=== PATIENT | female | born 1965 | race Caucasian/White ===

== ENCOUNTER 2022-05-15 17:02 | Outpatient (CLI) | payer SELFPAY | END 2022-05-15 17:03 | disposition home or self-care (01) | LOC: AMB 06-05 10:44 | PROVIDERS: Visit Provider Family Medicine | DX: R45.851 Suicidal ideations (principal); F10.129 Alcohol abuse with intoxication, unspecified | CPT/HCPCS: A0425; A0429 ==

== ENCOUNTER 2022-05-15 17:29 | Emergency (ER) | payer SELFPAY ==
[2022-05-15 17:53] VITALS: BP 123/68; PULSE 98; RESP 18; TEMP 36.9; O2SAT 98; BMI 28.2
[2022-05-15 18:09] VITALS: O2SAT 89; O2SAT 96
--- NOTE | 2022-05-15 18:32 | ED_ITS ---
HPI - General Adult General Chief complaint: Psychiatric Problem/Disorder Stated complaint: Mental Health Time Seen by Provider: 05/15/22 17:46 Source: patient Mode of arrival: ambulatory Limitations: no limitations History of Present Illness HPI narrative: 57-year-old female coming in today after calling 911 and telling them that she is suicidal. 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 She states that she drinks over 1 L of hard liquor per day. States that or any did help. Did drink today. Has a history of anxiety depression is not being treated. She does not see a doctor or therapist. States she has been drinking for over a decade or ?maybe over 20 years?. Patient is , states that she ?tries her ?, unclear if that is a supportive relationship or not. Patient works as a traveling nurse. Related Data Home Medications Medication Instructions Recorded Confirmed No Known Home Medications 05/15/22 05/15/22 Allergies Allergy/AdvReac Type Severity Reaction Status Date / Time No Known Drug Allergies Allergy Verified 05/15/22 17:58 Review of Systems Status of ROS: Reports: 10 or more systems reviewed and unremarkable except as noted in History and below [facility] Medical History (Updated 05/16/22 @ 00:04 by Janneth Blake MD) Alcohol abuse Anxiety Depression Social History Smoking Status: Smoker, status unknown Do you use any of these nicotine containing products: None How often do you have a drink containing alcohol: 4 or more times a week How many standard drinks containing alcohol do you have on a typical day: 5 or 6 How often do you have six or more drinks on one occasion: Daily or almost daily AUDIT-C Alcohol total score: 10 Non-prescribed substance use: denies use Exam Narrative: Exam Narrative: Well-nourished well-developed patient, sad and tearful. Alert and oriented x3. Answers questions appropriately but Is obviously intoxicated. HEENT: Normocephalic atraumatic. Pupils are equally round reactive to light. Extraocular muscles are intact. Conjunctivae are moist without any icterus noted. Moist mucous membranes. Posterior pharynx is normal. Neck is soft without any lymphadenopathy or thyromegaly. No masses are appreciated. Cardiovascular: Heart is regular rate and rhythm S1 and S2 are present without any murmurs. Lungs: Clear to auscultation bilaterally no wheezes rhonchi or rales are appreciated. Patient takes deep breaths without any discomfort. Abdomen: Soft and nontender nondistended with normal bowel sounds. No guarding or rebound. No masses or organomegaly appreciated. Extremities: Bilateral lower extremities are without edema. Normal DP and PT pulses. Skin: Well perfused without any obvious rashes. Const: Vital Signs, click to edit/add: Vital Signs - 24 hr 05/15/22 17:53 05/15/22 18:09 05/15/22 18:09 Temperature 98.4 F Pulse Rate [Pulse Oximeter] 98 Respiratory Rate 18 Blood Pressure [Le ft Upper Arm] 123/68 Pulse Oximetry 98 89 96 Oxygen Delivery Me thod Nasal Cannula Oxygen Flow Rate 2 Course Course Hospital Course: Labs were drawn, blood alcohol was quite elevated at 0.37. Started become more agitated so she received 0.5 mg of IV Ativan. It was only after the van that she allowed IV fluids to begin. She slept for several hours. We were unable to do the DEC assessment given her intoxication. We discussed that because of her thoughts and plans of suicide we could not discharge her until she had sobered up and was able to do a DEC assessment. It became more agitated after waking up and she then received 1 mg of IM Ativan as she ripped out her IV. I was able to call her who then came to the ER to visit her. This did seem to calm her down. He understood the plan to keep for until she was more sober and able to be properly assessed. Care will be transferred to oncoming MD. Vital Signs Vital signs: Initial Vital Signs Temperature 98.4 F 05/15/22 17:53 Temperature Source Temporal Artery Scan 05/15/22 17:53 Pulse Rate 98 05/15/22 17:53 Respiratory Rate 18 05/15/22 17:53 Blood Pressure 123/68 05/15/22 17:53 Blood Pressure Mean 86 05/15/22 17:53 Pulse Oximetry 98 05/15/22 17:53 Vital Signs Temperature 98.4 F 05/15/22 17:53 Pulse Rate 98 05/15/22 17:53 Respiratory Rate 18 05/15/22 17:53 Blood Pressure 123/68 05/15/22 17:53 Pulse Oximetry 98 05/15/22 17:53 Temperature 98.4 F 05/15/22 17:53 Pulse Rate 98 05/15/22 17:53 Respiratory Rate 18 05/15/22 17:53 Blood Pressure 123/68 05/15/22 17:53 Pulse Oximetry 96 05/15/22 18:09 Oxygen Delivery Method 05/15/22 18:09 Oxygen Flow Rate 2 05/15/22 18:09 Medical Decision Making Lab Data Labs: Lab Results 05/15/22 05/15/22 05/15/22 Range/Units 16:36 16:36 18:09 WBC 7.79 (4.50-11.00) K/uL RBC 3.51 L (4.00-5.20) m/uL Hgb 12.2 (12.0-16.0) gm/dL Hct 36.3 (33.0-51.0) % MCV 103 H (80-100) fL MCH 35 H (26-34) pg MCHC 34 (32-36) gm/dL RDW Coeff of Maria Ines 15.1 (11.5-15.5) % Plt Count 154 (140-440) K/uL Neut % (Auto) 55.4 (42.0-72.0) % Lymph % (Auto) 34.4 (20-44) % [place] % (Auto) 7.2 (0.0-11.0) % Eos % (Auto) 1.8 (0.0-7.0) % Baso % (Auto) 0.9 (0.0-3.0) % Neut # (Auto) 4.32 (1.7-7.0) K/uL Lymph # (Auto) 2.68 (0.90-2.90) K/uL [place] # (Auto) 0.60 (0.00-0.90) K/UL Eos # (Auto) 0.14 (0.00-0.50) K/uL Baso # (Auto) 0.07 (0.00-0.30) K/uL Abs Immat Gran (auto) 0.02 (0.00-0.30) K/uL Imm/Tot Granulo (auto) Not Reportable Sodium 148 (135-149) mmol/L Potassium 4.1 (3.6-5.1) mmol/L Chloride 108 (96-114) mmol/L Carbon Dioxide 25 (20-32) mmol/L BUN 8 (7-30) mg/dL Creatinine 0.5 (0.5-1.5) mg/dL Estimated Creat Clear 120.72 Estimated GFR 109 ml/min Glucose 93 (60-115) mg/dL Calcium 8.9 (8.4-10.6) mg/dL Magnesium 1.3 L (1.5-2.6) mg/dL Total Bilirubin 3.1 H (0.1-1.5) mg/dL Direct Bilirubin 0.9 H (0.0-0.5) mg/dL AST 116 H (12-35) U/L ALT 33 (4-35) U/L Alkaline Phosphatase 98 (40-150) U/L Total Protein 9.3 H (6.0-8.3) g/dL Albumin 4.2 (3.3-5.0) g/dL Salicylates < 1.0 L (1.0-10) mg/dL Acetaminophen < 10.0 L (10.0-30.0) ug/mL Ethyl Alcohol 0.37 H* (0.01-0.03) % Discharge Plan Discharge Clinical Impression: Acute alcohol intoxication, Suicidal ideation, Depression, Alcohol use disorder Prescriptions: No Action No Known Home Medications Follow Up/Referrals: Provider,Not a Local [Primary Care Provider] -
[2022-05-15 18:45] LABS: Basophils Absolute Auto 0.07 K/uL (0.00-0.30); Basophils Percent Auto 0.9 % (0.0-3.0); Eosinophils Absolute Auto 0.14 K/uL (0.00-0.50); Eosinophils Percent Auto 1.8 % (0.0-7.0); Hematocrit 36.3 % (33.0-51.0); Hemoglobin* 12.2 gm/dL (12.0-16.0); Immature Granulocytes Abs Auto 0.02 K/uL (0.00-0.30); Lymphocytes Absolute Auto 2.68 K/uL (0.90-2.90); Lymphocytes Percent Auto 34.4 % (20-44); Mean Corpuscular HGB Conc 34 gm/dL (32-36); Mean Corpuscular Hemoglobin 35 pg (26-34); Mean Corpuscular Volume 103 fL (80-100); Monocytes Percent Auto 7.2 % (0.0-11.0); Neutrophils Absolute Auto 4.32 K/uL (1.7-7.0); Neutrophils Percent Auto 55.4 % (42.0-72.0); Platelet Count* 154 K/uL (140-440); RDW Coefficient of Variation % 15.1 % (11.5-15.5); Red Blood Count 3.51 m/uL (4.00-5.20); White Blood Count* 7.79 K/uL (4.50-11.00)
[2022-05-15 18:49] LABS: Slide Review Reflex No
[2022-05-15 19:01] LABS: Albumin* 4.2 g/dL (3.3-5.0); Chloride* 108 mmol/L (96-114)
[2022-05-15 19:02] LABS: Potassium* 4.1 mmol/L (3.6-5.1); Sodium* 148 mmol/L (135-149)
[2022-05-15 19:04] LABS: Alanine Aminotransferase* 33 U/L (4-35); Alkaline Phosphatase* 98 U/L (40-150); Aspartate Amino Transferase* 116 U/L (12-35); Bilirubin Direct* 0.9 mg/dL (0.0-0.5); Bilirubin Total* 3.1 mg/dL (0.1-1.5); Blood Urea Nitrogen* 8 mg/dL (7-30); Calcium* 8.9 mg/dL (8.4-10.6); Carbon Dioxide* 25 mmol/L (20-32); Creatinine* 0.5 mg/dL (0.5-1.5); Est. Creatinine Clearance* 120.72; Estimated Glomerular Filt Rate 109 ml/min; Glucose* 93 mg/dL (60-115); Total Protein* 9.3 g/dL (6.0-8.3)
[2022-05-15 19:18] LABS: Acetaminophen* < 10.0 ug/mL (10.0-30.0); Salicylate* < 1.0 mg/dL (1.0-10)
[2022-05-15 19:19] LABS: Ethanol* 0.37 % (0.01-0.03)
[2022-05-15] MEDS: LORazepam 2 MG/ML inj 0.5 MG IVP (19:55)
[2022-05-15] MEDS: 0.9 % SODIUM CHLORIDE 1000 ml 1,000 ML IV (19:55)
[2022-05-15 20:15] LABS: Magnesium* 1.3 mg/dL (1.5-2.6)
[2022-05-15] MEDS: 0.9 % SODIUM CHLORIDE 1000 ml 1,000 ML 150 ML IV (22:31)
[2022-05-15] MEDS: LORazepam 2 MG/ML inj IM (23:15)
[2022-05-16 01:32] VITALS: O2SAT 91
[2022-05-16 02:59] VITALS: BP 129/99; PULSE 97; RESP 16; O2SAT 91
[2022-05-16 03:36] LABS: PCR FLU A Negative PCR FLU A (Negative); PCR FLU B Negative PCR FLU B (Negative)
[2022-05-16 04:26] LABS: SARS PCR* Negative SARS-CoV-2 (Negative)
[2022-05-16 05:49] LABS: Amphetamine Screen Urine Negative (Negative); Barbiturate Screen Urine Negative (Negative); Cannabinoid Screen Urine Negative (Negative); Cocaine Screen Urine Negative (Negative); Methadone Screen Urine Negative (Negative); Methamphetamines Screen Urine Negative (Negative); Opiate Screen Urine Negative (Negative); Oxycodone Screen Urine Negative (Negative); Phencyclidine Screen Urine Negative (Negative); Tricyclic Antidepressant Urine Negative (Negative)
[2022-05-16 05:58] LABS: Benzodiazepines Screen Urine POSITIVE (Negative)
--- NOTE | 2022-05-16 07:25 | PC.NURSE ---
to pt room, pt awakens easily, pt offered call to detox, pt refuses at this time, I just want to go home for now, pt wants to look for inpatient treatment, given resources and told if she cannot find what she needs she could always call back and speak to social work as a resource, pt coming to get patient and bring her home, pt discharged at this time
== END 2022-05-16 07:25 | disposition home or self-care (01) ==
PROVIDERS: Family Medicine; Emergency Provider Family Medicine
DX: R45.851 Suicidal ideations (principal); F10.129 Alcohol abuse with intoxication, unspecified
CPT/HCPCS: 36415; 80048; 80076; 80143; 80179; 80306; 82077; 83735; 84703; 85025; 87631; 94761; 96365; 96372; 96375; 99284; J2060; J7030

== ENCOUNTER 2022-05-23 00:56 | Outpatient (CLI) | payer SELFPAY | END 2022-05-23 00:57 | disposition home or self-care (01) | LOC: AMB 06-21 01:05 | PROVIDERS: Visit Provider Emergency Medicine | DX: R45.851 Suicidal ideations (principal); F10.129 Alcohol abuse with intoxication, unspecified | CPT/HCPCS: A0425; A0427 ==

== ENCOUNTER 2022-05-23 01:24 | Emergency (ER) | payer SELFPAY ==
--- NOTE | 2022-05-23 01:32 | ED_ITS ---
HPI - Psych General Time Seen by Provider: 01:33 Date Seen: 05/23/22 Chief Complaint: Psychiatric Problem/Disorder Stated Complaint: Mental health Time Seen by Provider: 05/23/22 01:28 Source: patient, EMS, RN notes reviewed and old records reviewed Mode of arrival: EMS Limitations: no limitations History of Present Illness HPI Narrative: Patient is a 57-year-old female with a history of alcohol abuse suicidal ideation who is brought to the emergency room by EMS after stating that she was going to place a bag over her head. Patient had been drinking vodka today which she does on a daily basis per patient report. She is somewhat elusive on the exact amount but states that she is so intoxicated right now that she is having a hard time walking. Fortunately, it she denies any trauma today. 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 She states that her has come back to her since the last time she was here but that he is not very supportive. She states that he is and that is just how he is. Patient denies any illicit drug use. She denies suicidal ideation at this time. However when asked about the threat to put a bag over her head she states ?Oh y es I did say that?. She states that she is willing to go to detox tonight. Patient was recently seen on 05/15/2022. Similar circumstances in which she t hreatened suicide. She remained overnight here and did require some sedation. The following morning upon being sober she declined any further help and went home. EMS did give patient diazepam 2 mg IV. Patient tells me that she is not a drug seeker but she wished she could have Ativan every day. She states it is hard for her to go out into public. She feels that this would help her. Related Data Home Medications Medication Instructions Recorded Confirmed No Known Home Medications 05/15/22 05/15/22 Allergies Allergy/AdvReac Type Severity Reaction Status Date / Time No Known Drug Allergies Allergy Verified 05/15/22 17:58 Review of Systems Status of ROS: Reports: 10 or more systems reviewed and unremarkable except as noted in History and below Narrative: States cold-like symptoms recently Const: Denies: fever or chills Eyes: Denies: change in vision ENMT: Denies: throat pain, neck pain or difficulty swallowing Cardio: Denies: chest pain, edema, swelling of feet/ankles or shortness of breath with exertion Resp: Denies: shortness of breath, cough or wheezing GI: Denies: abdominal pain, nausea, vomiting, diarrhea or difficulty swallowing : Denies: painful urination or urinary frequency Musculo: Denies: back pain or neck pain Integ/Breast: Denies: rash Neuro: Reports: lack of coordination; Denies: headache or numbness in extremities Psych: Reports: anxiety Allergy/Immuno: Denies: wheezing PFSH PFS Medical History Alcohol abuse Anxiety Depression Social History Smoking Status: Smoker, status unknown Do you use any of these nicotine containing products: None How often do you have a drink containing alcohol: 4 or more times a week How many standard drinks containing alcohol do you have on a typical day: 10 or more How often do you have six or more drinks on one occasion: Daily or almost daily AUDIT-C Alcohol total score: 12 Non-prescribed substance use: denies use Exam Narrative: Exam Narrative: Patient noted to be in rather disheveled state. Head is atraumatic normocephali c. Negative Ruiz sign. No midline neck tenderness. Moving neck without difficulty. Heart with regular rate and rhythm. Lungs are clear in all lung s[place]ill[place]. Abdomen soft nontender. GCS is 15. Patient is occasionally tearful. Eyes are slightly injected. Oral cavity with moist mucous membranes. Dentition poor. Moving all extremities. Const: Vital Signs, click to edit/add: Vital Signs - 24 hr 05/23/22 01:34 Temperature 97.8 F Pulse Rate [Left P ulse Oximeter] 103 H Respiratory Rate 16 Blood Pressure [Le ft Upper Arm] 143/89 H Pulse Oximetry 94 Oxygen Delivery Me thod Room Air Documenting provider has reviewed patient's vital signs: yes Course Course Hospital Course: Patient was the 1 L of normal saline and then banana bag. Patient is cooperative at this time. Will check laboratory values. Vital Signs Vital signs: Initial Vital Signs Temperature 97.8 F 05/23/22 01:34 Temperature Source Temporal Artery Scan 05/23/22 01:34 Pulse Rate 103 H 05/23/22 01:34 Respiratory Rate 16 05/23/22 01:34 Blood Pressure 143/89 H 05/23/22 01:34 Blood Pressure Mean 107 05/23/22 01:34 Blood Pressure Position Sitting 05/23/22 01:34 Pulse Oximetry 94 05/23/22 01:34 Oxygen Delivery Method 05/23/22 01:34 Vital Signs Temperature 97.8 F 05/23/22 01:34 Pulse Rate 103 H 05/23/22 01:34 Respiratory Rate 16 05/23/22 01:34 Blood Pressure 143/89 H 05/23/22 01:34 Pulse Oximetry 94 05/23/22 01:34 Oxygen Delivery Method 05/23/22 01:34 Temperature 97.8 F 05/23/22 01:34 Pulse Rate 103 H 05/23/22 01:34 Respiratory Rate 16 05/23/22 01:34 Blood Pressure 143/89 H 05/23/22 01:34 Pulse Oximetry 94 05/23/22 01:34 Oxygen Delivery Method 05/23/22 01:34 MDM - Psych MDM Narrative Medical decision making narrative: 1. Alcohol intoxication 2. Suicidal statement 3. Hypo magnesemia-2 g IV magnesium given. 4. . Disposition- Medical Records Attestation: I reviewed the patient's medical records. Lab Data Attestation: I reviewed the patient's lab results. Labs: Lab Results 05/23/22 05/23/22 05/23/22 Range/Units 01:50 01:50 01:50 WBC 6.88 (4.50-11.00) K/uL RBC 3.23 L (4.00-5.20) m/uL Hgb 11.2 L (12.0-16.0) gm/dL Hct 33.4 (33.0-51.0) % MCV 103 H (80-100) fL MCH 35 H (26-34) pg MCHC 34 (32-36) gm/dL RDW Coeff of Maria Ines 15.6 H (11.5-15.5) % Plt Count 114 L (140-440) K/uL Neut % (Auto) 45.6 (42.0-72.0) % Lymph % (Auto) 42.4 (20-44) % [place] % (Auto) 9.2 (0.0-11.0) % Eos % (Auto) 2.0 (0.0-7.0) % Baso % (Auto) 0.7 (0.0-3.0) % Neut # (Auto) 3.13 (1.7-7.0) K/uL Lymph # (Auto) 2.92 H (0.90-2.90) K/uL [place] # (Auto) 0.60 (0.00-0.90) K/UL Eos # (Auto) 0.14 (0.00-0.50) K/uL Baso # (Auto) 0.05 (0.00-0.30) K/uL Abs Immat Gran (auto) 0.01 (0.00-0.30) K/uL Imm/Tot Granulo (auto) 0.1 % Sodium 148 (135-149) mmol/L Potassium 3.9 (3.6-5.1) mmol/L Chloride 108 (96-114) mmol/L Carbon Dioxide 27 (20-32) mmol/L BUN 5 L (7-30) mg/dL Creatinine 0.4 L (0.5-1.5) mg/dL Estimated GFR 115 ml/min Glucose 97 (60-115) mg/dL Calcium 8.9 (8.4-10.6) mg/dL Magnesium 1.4 L (1.5-2.6) mg/dL Total Bilirubin 2.3 H (0.1-1.5) mg/dL AST 129 H (12-35) U/L ALT 37 H (4-35) U/L Alkaline Phosphatase 87 (40-150) U/L Total Protein 8.6 H (6.0-8.3) g/dL Albumin 4.0 (3.3-5.0) g/dL TSH (0.270-4.200) uIU/mL Urine Color (Yellow) Urine Appearance (Clear) Urine pH (5.0-8.5) Ur Specific [place] (1.000-1.030) Urine Protein (Negative) Urine Glucose (UA) (Negative) Urine Ketones (Negative) Urine Blood (Negative) Urine Nitrite (Negative) Urine Bilirubin (Negative) Urine Urobilinogen (0.2-1.0) Ur Leukocyte Esterase (Negative) Urine RBC (0-2) Urine WBC (0-5) Ur Squamous Epith Cells (None-Few) Urine Bacteria (None) Salicylates < 1.0 L (1.0-10) mg/dL Urine Opiates Screen (Negative) Ur Oxycodone Screen (Negative) Urine Methadone Screen (Negative) Ur Propoxyphene Screen (Negative) Acetaminophen < 10.0 L (10.0-30.0) ug/mL Ur Barbiturates Screen (Negative) U Tricyclic Antidepress (Negative) Ur Phencyclidine Scrn (Negative) Ur Amphetamines Screen (Negative) U Methamphetamines Scrn (Negative) U Benzodiazepines Scrn (Negative) Urine Cocaine Screen (Negative) U Marijuana (THC) Screen (Negative) Ur Drug Screen Comment Ethyl Alcohol 0.45 H* (0.01-0.03) % SARS-CoV-2 (PCR) (Negative) 05/23/22 05/23/22 05/23/22 Range/Units 01:50 02:03 02:03 WBC (4.50-11.00) K/uL RBC (4.00-5.20) m/uL Hgb (12.0-16.0) gm/dL Hct (33.0-51.0) % MCV (80-100) fL MCH (26-34) pg MCHC (32-36) gm/dL RDW Coeff of Maria Ines (11.5-15.5) % Plt Count (140-440) K/uL Neut % (Auto) (42.0-72.0) % Lymph % (Auto) (20-44) % [place] % (Auto) (0.0-11.0) % Eos % (Auto) (0.0-7.0) % Baso % (Auto) (0.0-3.0) % Neut # (Auto) (1.7-7.0) K/uL Lymph # (Auto) (0.90-2.90) K/uL [place] # (Auto) (0.00-0.90) K/UL Eos # (Auto) (0.00-0.50) K/uL Baso # (Auto) (0.00-0.30) K/uL Abs Immat Gran (auto) (0.00-0.30) K/uL Imm/Tot Granulo (auto) % Sodium (135-149) mmol/L Potassium (3.6-5.1) mmol/L Chloride (96-114) mmol/L Carbon Dioxide (20-32) mmol/L BUN (7-30) mg/dL Creatinine (0.5-1.5) mg/dL Estimated GFR ml/min Glucose (60-115) mg/dL Calcium (8.4-10.6) mg/dL Magnesium (1.5-2.6) mg/dL Total Bilirubin (0.1-1.5) mg/dL AST (12-35) U/L ALT (4-35) U/L Alkaline Phosphatase (40-150) U/L Total Protein (6.0-8.3) g/dL Albumin (3.3-5.0) g/dL TSH 2.300 (0.270-4.200) uIU/mL Urine Color Yellow (Yellow) Urine Appearance Clear (Clear) Urine pH 7.0 (5.0-8.5) Ur Specific [place] 1.015 (1.000-1.030) Urine Protein Negative (Negative) Urine Glucose (UA) Negative (Negative) Urine Ketones Negative (Negative) Urine Blood Negative (Negative) Urine Nitrite Negative (Negative) Urine Bilirubin Negative (Negative) Urine Urobilinogen 1.0 (0.2-1.0) Ur Leukocyte Esterase Negative (Negative) Urine RBC 0-2 (0-2) Urine WBC 0-2 (0-5) Ur Squamous Epith Cells Few (None-Few) Urine Bacteria None (None) Salicylates (1.0-10) mg/dL Urine Opiates Screen Negative (Negative) Ur Oxycodone Screen Negative (Negative) Urine Methadone Screen Negative (Negative) Ur Propoxyphene Screen Negative (Negative) Acetaminophen (10.0-30.0) ug/mL Ur Barbiturates Screen Negative (Negative) U Tricyclic Antidepress Negative (Negative) Ur Phencyclidine Scrn Negative (Negative) Ur Amphetamines Screen Negative (Negative) U Methamphetamines Scrn Negative (Negative) U Benzodiazepines Scrn Negative (Negative) Urine Cocaine Screen Negative (Negative) U Marijuana (THC) Screen Negative (Negative) Ur Drug Screen Comment See Note Ethyl Alcohol (0.01-0.03) % SARS-CoV-2 (PCR) (Negative) 05/23/22 Range/Units 02:03 WBC (4.50-11.00) K/uL RBC (4.00-5.20) m/uL Hgb (12.0-16.0) gm/dL Hct (33.0-51.0) % MCV (80-100) fL MCH (26-34) pg MCHC (32-36) gm/dL RDW Coeff of Maria Ines (11.5-15.5) % Plt Count (140-440) K/uL Neut % (Auto) (42.0-72.0) % Lymph % (Auto) (20-44) % [place] % (Auto) (0.0-11.0) % Eos % (Auto) (0.0-7.0) % Baso % (Auto) (0.0-3.0) % Neut # (Auto) (1.7-7.0) K/uL Lymph # (Auto) (0.90-2.90) K/uL [place] # (Auto) (0.00-0.90) K/UL Eos # (Auto) (0.00-0.50) K/uL Baso # (Auto) (0.00-0.30) K/uL Abs Immat Gran (auto) (0.00-0.30) K/uL Imm/Tot Granulo (auto) % Sodium (135-149) mmol/L Potassium (3.6-5.1) mmol/L Chloride (96-114) mmol/L Carbon Dioxide (20-32) mmol/L BUN (7-30) mg/dL Creatinine (0.5-1.5) mg/dL Estimated GFR ml/min Glucose (60-115) mg/dL Calcium (8.4-10.6) mg/dL Magnesium (1.5-2.6) mg/dL Total Bilirubin (0.1-1.5) mg/dL AST (12-35) U/L ALT (4-35) U/L Alkaline Phosphatase (40-150) U/L Total Protein (6.0-8.3) g/dL Albumin (3.3-5.0) g/dL TSH (0.270-4.200) uIU/mL Urine Color (Yellow) Urine Appearance (Clear) Urine pH (5.0-8.5) Ur Specific [place] (1.000-1.030) Urine Protein (Negative) Urine Glucose (UA) (Negative) Urine Ketones (Negative) Urine Blood (Negative) Urine Nitrite (Negative) Urine Bilirubin (Negative) Urine Urobilinogen (0.2-1.0) Ur Leukocyte Esterase (Negative) Urine RBC (0-2) Urine WBC (0-5) Ur Squamous Epith Cells (None-Few) Urine Bacteria (None) Salicylates (1.0-10) mg/dL Urine Opiates Screen (Negative) Ur Oxycodone Screen (Negative) Urine Methadone Screen (Negative) Ur Propoxyphene Screen (Negative) Acetaminophen (10.0-30.0) ug/mL Ur Barbiturates Screen (Negative) U Tricyclic Antidepress (Negative) Ur Phencyclidine Scrn (Negative) Ur Amphetamines Screen (Negative) U Methamphetamines Scrn (Negative) U Benzodiazepines Scrn (Negative) Urine Cocaine Screen (Negative) U Marijuana (THC) Screen (Negative) Ur Drug Screen Comment Ethyl Alcohol (0.01-0.03) % SARS-CoV-2 (PCR) Negative SARS-CoV-2 (Negative) Critical Care Time Critical Care Time Critical Care Time: Yes Attestation: The patient required my highest level preparedness to intervene emergently and I personally spent this critical care time directly and personally managing the p atient. This critical care time included: Obtaining a history; Examining the patient; Pulse oximetry; Ordering and reviewing of studies; Arranging urgent treatment with development of a management plan; Evaluation of patients response to treatment; Frequent reassessment discussions with other providers. This critical care time was performed to assess and manage the high probability of imminent life-threatening deterioration that could result in multiorgan failure. It was exclusive of separate billable procedures and treating other patients and teaching time. Total Critical Care Time in Minutes: 30 Discharge Plan Discharge Prescriptions: No Action No Known Home Medications Follow Up/Referrals: Provider,Not a Local [Primary Care Provider] -
[2022-05-23 01:34] VITALS: BP 143/89; PULSE 103; RESP 16; TEMP 36.6; O2SAT 94
[2022-05-23 01:58] LABS: Basophils Absolute Auto 0.05 K/uL (0.00-0.30); Basophils Percent Auto 0.7 % (0.0-3.0); Eosinophils Absolute Auto 0.14 K/uL (0.00-0.50); Hematocrit 33.4 % (33.0-51.0); Hemoglobin* 11.2 gm/dL (12.0-16.0); Immature Granulocytes Abs Auto 0.01 K/uL (0.00-0.30); Immature Granulocytes Pct Auto 0.1 %; Lymphocytes Absolute Auto 2.92 K/uL (0.90-2.90); Lymphocytes Percent Auto 42.4 % (20-44); Mean Corpuscular HGB Conc 34 gm/dL (32-36); Mean Corpuscular Hemoglobin 35 pg (26-34); Mean Corpuscular Volume 103 fL (80-100); Monocytes Percent Auto 9.2 % (0.0-11.0); Neutrophils Absolute Auto 3.13 K/uL (1.7-7.0); Neutrophils Percent Auto 45.6 % (42.0-72.0); Platelet Count* 114 K/uL (140-440); RDW Coefficient of Variation % 15.6 % (11.5-15.5); Red Blood Count 3.23 m/uL (4.00-5.20); White Blood Count* 6.88 K/uL (4.50-11.00)
[2022-05-23 01:59] LABS: Slide Review Reflex No
[2022-05-23] MEDS: 0.9 % SODIUM CHLORIDE 1000 ml 1,000 ML IV (02:08)
[2022-05-23 02:11] LABS: Chloride* 108 mmol/L (96-114)
[2022-05-23 02:12] LABS: Potassium* 3.9 mmol/L (3.6-5.1); Sodium* 148 mmol/L (135-149)
[2022-05-23 02:14] LABS: Alkaline Phosphatase* 87 U/L (40-150); Aspartate Amino Transferase* 129 U/L (12-35); Bilirubin Total* 2.3 mg/dL (0.1-1.5); Blood Urea Nitrogen* 5 mg/dL (7-30); Carbon Dioxide* 27 mmol/L (20-32); Creatinine* 0.4 mg/dL (0.5-1.5); Estimated Glomerular Filt Rate 115 ml/min; Glucose* 97 mg/dL (60-115); Magnesium* 1.4 mg/dL (1.5-2.6); Total Protein* 8.6 g/dL (6.0-8.3)
[2022-05-23 02:15] LABS: Alanine Aminotransferase* 37 U/L (4-35); Calcium* 8.9 mg/dL (8.4-10.6)
[2022-05-23 02:16] LABS: Acetaminophen* < 10.0 ug/mL (10.0-30.0); Salicylate* < 1.0 mg/dL (1.0-10)
[2022-05-23 02:21] LABS: Appearance Urine Clear (Clear); Bilirubin Urine Negative (Negative); Blood Urine Negative (Negative); Color Urine Yellow (Yellow); Glucose Urine Negative (Negative); Ketones Urine Negative (Negative); Leukocyte Esterase Urine Negative (Negative); Nitrite Urine Negative (Negative); Protein Urine Negative (Negative); Specific Gravity Urine 1.015 (1.000-1.030)
[2022-05-23 02:25] LABS: Ethanol* 0.45 % (0.01-0.03)
[2022-05-23 02:29] LABS: Amphetamine Screen Urine Negative (Negative); Barbiturate Screen Urine Negative (Negative); Benzodiazepines Screen Urine Negative (Negative); Cannabinoid Screen Urine Negative (Negative); Cocaine Screen Urine Negative (Negative); Methadone Screen Urine Negative (Negative); Methamphetamines Screen Urine Negative (Negative); Opiate Screen Urine Negative (Negative); Oxycodone Screen Urine Negative (Negative); Phencyclidine Screen Urine Negative (Negative); Tricyclic Antidepressant Urine Negative (Negative)
[2022-05-23 02:31] LABS: RBC Urine 0-2 (0-2); Squamous Epithelial Cell Urine Few (None-Few); WBC Urine 0-2 (0-5)
[2022-05-23 02:41] LABS: SARS PCR* Negative SARS-CoV-2 (Negative)
[2022-05-23] MEDS: MAGNESIUM SULFATE 2 GM/50 ML PIGGYBACK IVPB (02:54)
[2022-05-23] MEDS: LORazepam 2 MG/ML inj 0.5 MG IVP (03:13)
[2022-05-23 07:26] VITALS: BP 133/77; PULSE 100; RESP 18; TEMP 36.3; O2SAT 93
--- NOTE | 2022-05-23 08:55 | PC.NURSE ---
called to [facility] and they are just getting to reviewing pt now, concerned about suicidal statements and did express to [facility] that DEC eval had been done and pt was cleared for detox
--- NOTE | 2022-05-23 10:52 | PC.NURSE ---
transfer from signed, pt cooperative, asked her is she needed nicotine patch and states, I don't smoke, ambulance en route
[2022-05-23 11:04] VITALS: BP 144/81; PULSE 101; RESP 14; TEMP 36.5; O2SAT 94
[2022-05-23] MEDS: LORazepam 1 MG TABLET PO (11:04)
== END 2022-05-23 11:06 | disposition other institution (70) ==
PROVIDERS: Family Medicine; Emergency Provider Emergency Medicine
DX: F10.129 Alcohol abuse with intoxication, unspecified (principal); Y90.8 Blood alcohol level of 240 mg/100 ml or more; R45.851 Suicidal ideations; E83.42 Hypomagnesemia
CPT/HCPCS: 36415; 80053; 80143; 80179; 80306; 81001; 82077; 83735; 84443; 85025; 87635; 96361; 96374; 96375; 99285; 99291; A9270; J2060; J3411; J3475; J7030

== ENCOUNTER 2022-05-23 11:01 | Outpatient (CLI) | payer SELFPAY | END 2022-05-23 11:02 | disposition home or self-care (01) | LOC: AMB 06-21 01:09 | PROVIDERS: Visit Provider Emergency Medicine | DX: F10.129 Alcohol abuse with intoxication, unspecified (principal) | CPT/HCPCS: A0425; A0426 ==

== ENCOUNTER 2022-06-04 10:56 | Outpatient (CLI) | payer SELFPAY | END 2022-06-04 10:57 | disposition home or self-care (01) | LOC: AMB 06-28 04:31 | PROVIDERS: Visit Provider Emergency Medicine Emergency Medical Services | DX: F10.129 Alcohol abuse with intoxication, unspecified (principal) | CPT/HCPCS: A0425; A0427 ==

== ENCOUNTER 2022-06-04 11:19 | Emergency (ER) | payer SELFPAY ==
[2022-06-04 11:25] VITALS: BP 147/88; PULSE 92; RESP 18; TEMP 36.4; O2SAT 96; BMI 25.1
--- NOTE | 2022-06-04 11:43 | CRLHL7_ITS ---
For Patients: As a result of the Cures Act, medical imaging exams and procedure reports are released immediately into your electronic medical record. You may view this report before your referring provider. If you have questions, please contact your health care provider. INDICATION: Fall. TECHNIQUE: Sacrum and coccyx, 3 views. COMPARISON: None. FINDINGS: Bones: Alignment is normal. No fractures or bone lesions. Joint spaces: Unremarkable. Soft tissues: Unremarkable. IMPRESSION: No acute or significant findings. Dictated by Pepe Ramos MD @ 06/04/2022 12:57:57 PM (Electronically Signed)
--- NOTE | 2022-06-04 11:44 | ED.GENADULT ---
HPI - General Adult General Chief complaint: Alcohol/Intoxication Stated complaint: Fall Time Seen by Provider: 06/04/22 11:23 History of Present Illness HPI narrative: This 57-year-old female is intoxicated with alcohol and comes in by ambulance because of a fall that occurred prior to arrival. She landed on her tailbone. She needed help getting up but did ambulate into the facility here. She does not report any other injury. She has slow speech with significant alcohol intoxication. She does state that she is an alcoholic. She was seen here 12 days ago and transferred to detox. She states that she has a but he will not come and get her so she is agreeable to go to detox. 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 Related Data Home Medications Medication Instructions Recorded Confirmed No Known Home Medications 05/15/22 05/15/22 Allergies Allergy/AdvReac Type Severity Reaction Status Date / Time No Known Drug Allergies Allergy Verified 05/15/22 17:58 Review of Systems Status of ROS: Reports: 10 or more systems reviewed and unremarkable except as noted in History and below Narrative: Constitutional: No fevers, no weight gain or loss. Eyes: No discharge. No vision changes. HENT: No congestion, no sore throat, no ear pain. Cardiovascular: No chest pain, no palpitations. Respiratory: No shortness of breath, no wheezes, no cough. Gastrointestinal: No abdominal pain, no vomiting, no diarrhea. Genitourinary: No dysuria, no hematuria. Musculoskeletal: Normal range of motion. Tailbone pain from recent fall. Skin: No rashes, no pruritis. Neurological: No dizziness, weakness, sensory change, speech change. Endo/Heme/Allergies: No bruising or bleeding. No polydipsia. Pysch: no suicidality, no anxiety, no insomnia. Alcohol intoxication and dependence. All other systems reviewed and are negative. [facility] Medical History Alcohol abuse Anxiety Depression Social History Smoking Status: Smoker, status unknown Do you use any of these nicotine containing products: None How often do you have a drink containing alcohol: 4 or more times a week How many standard drinks containing alcohol do you have on a typical day: 10 or more How often do you have six or more drinks on one occasion: Daily or almost daily AUDIT-C Alcohol total score: 12 Non-prescribed substance use: denies use Exam Narrative: Exam Narrative: Constitutional: Well-developed, well-nourished, no acute distress. HEENT: Normocephalic, atraumatic. Neck: Normal range of motion. Nontender. Supple. Heart: Regular. No murmurs. Normal rate. Intact distal pulses. Lungs: Clear to auscultation. No chest discomfort. No wheezes, rhonchi, or rales. Abdomen: Normal bowel sounds. Nontender. No rebound tenderness. Genitalia: Deferred. Back: Tenderness in the coccyx and sacral area from recent fall. Normal range of motion. Extremities: Normal range of motion. No injury. Skin: Intact. No rash. Warm. No erythema or pallor. Neurologic: No altered sensation. No weakness. Alert and oriented. Intoxicated with alcohol. No tremors or sign of withdrawal symptoms currently. Psychiatric: No suicidality. No anxiety or depression. No insomnia. Nursing notes and vitals signs are reviewed. Const: Vital Signs, click to edit/add: Vital Signs - 24 hr 06/04/22 11:25 Temperature 97.6 F Pulse Rate [Right Pulse Oximeter] 92 Respiratory Rate 18 Blood Pressure [Ri ght Upper Arm] 147/88 H Pulse Oximetry 96 Oxygen Delivery Me thod Room Air Course Vital Signs Vital signs: Initial Vital Signs Temperature 97.6 F 06/04/22 11:25 Temperature Source Temporal Artery Scan 06/04/22 11:25 Pulse Rate 92 06/04/22 11:25 Respiratory Rate 18 06/04/22 11:25 Blood Pressure 147/88 H 06/04/22 11:25 Blood Pressure Mean 107 06/04/22 11:25 Blood Pressure Position Sitting 06/04/22 11:25 Pulse Oximetry 96 06/04/22 11:25 Oxygen Delivery Method 06/04/22 11:25 Vital Signs Temperature 97.6 F 06/04/22 11:25 Pulse Rate 92 06/04/22 11:25 Respiratory Rate 18 06/04/22 11:25 Blood Pressure 147/88 H 06/04/22 11:25 Pulse Oximetry 96 06/04/22 11:25 Oxygen Delivery Method 06/04/22 11:25 Temperature 97.6 F 06/04/22 11:25 Pulse Rate 92 06/04/22 11:25 Respiratory Rate 18 06/04/22 11:25 Blood Pressure 147/88 H 06/04/22 11:25 Pulse Oximetry 96 06/04/22 11:25 Oxygen Delivery Method 06/04/22 11:25 Medical Decision Making MDM Narrative Medical decision making narrative: This patient comes in intoxicated with alcohol and her blood alcohol level returns at 0.43. She came in by ambulance because of a fall where she injured her tailbone. X-ray images of the sacrum and coccyx show no sign of fracture. She is ambulatory. She is rather functional despite her blood alcohol level. She is agreeable to go to detox and arrangements are made for transfer a [facility]. Patient is medically cleared for this to occur. She does not exhibit or speak of any risk for suicidality. Lab Data Labs: Lab Results 06/04/22 06/04/22 06/04/22 Range/Units 11:56 12:25 12:25 WBC 6.79 (4.50-11.00) K/uL RBC 3.49 L (4.00-5.20) m/uL Hgb 11.8 L (12.0-16.0) gm/dL Hct 35.9 (33.0-51.0) % MCV 103 H (80-100) fL MCH 34 (26-34) pg MCHC 33 (32-36) gm/dL RDW Coeff of Maria Ines 15.3 (11.5-15.5) % Plt Count 148 (140-440) K/uL Neut % (Auto) 46.4 (42.0-72.0) % Lymph % (Auto) 39.3 (20-44) % [place] % (Auto) 9.0 (0.0-11.0) % Eos % (Auto) 3.7 (0.0-7.0) % Baso % (Auto) 1.5 (0.0-3.0) % Neut # (Auto) 3.15 (1.7-7.0) K/uL Lymph # (Auto) 2.67 (0.90-2.90) K/uL [place] # (Auto) 0.60 (0.00-0.90) K/UL Eos # (Auto) 0.25 (0.00-0.50) K/uL Baso # (Auto) 0.10 (0.00-0.30) K/uL Abs Immat Gran (auto) 0.01 (0.00-0.30) K/uL Imm/Tot Granulo (auto) 0.1 % Sodium 149 (135-149) mmol/L Potassium 4.3 (3.6-5.1) mmol/L Chloride 109 (96-114) mmol/L Carbon Dioxide 29 (20-32) mmol/L BUN 7 (7-30) mg/dL Creatinine 0.6 (0.5-1.5) mg/dL Estimated Creat Clear 100.60 Estimated GFR 105 ml/min Glucose 91 (60-115) mg/dL Calcium 9.4 (8.4-10.6) mg/dL Total Bilirubin 3.0 H (0.1-1.5) mg/dL Direct Bilirubin 0.9 H (0.0-0.5) mg/dL AST 110 H (12-35) U/L ALT 33 (4-35) U/L Alkaline Phosphatase 101 (40-150) U/L Total Protein 9.6 H (6.0-8.3) g/dL Albumin 4.4 (3.3-5.0) g/dL Urine Opiates Screen Negative (Negative) Ur Oxycodone Screen Negative (Negative) Urine Methadone Screen Negative (Negative) Ur Propoxyphene Screen Negative (Negative) Ur Barbiturates Screen Negative (Negative) U Tricyclic Antidepress Negative (Negative) Ur Phencyclidine Scrn Negative (Negative) Ur Amphetamines Screen Negative (Negative) U Methamphetamines Scrn Negative (Negative) U Benzodiazepines Scrn Negative (Negative) Urine Cocaine Screen Negative (Negative) U Marijuana (THC) Screen Negative (Negative) Ur Drug Screen Comment See Note Ethyl Alcohol 0.43 H* (0.01-0.03) % Imaging Data XR Sacrum/Coccyx: Radiologist's impression: No acute or significant findings. Discharge Plan Discharge Clinical Impression: Coccygeal contusion, Alcohol intoxication Patient Disposition: Xfer SNF Condition: Unchanged Prescriptions: No Action No Known Home Medications Follow Up/Referrals: Provider,Not a Local [Primary Care Provider] - Stand Alone Forms: [facility] Info Inst[facility]
[2022-06-04 12:33] LABS: Basophils Percent Auto 1.5 % (0.0-3.0); Eosinophils Absolute Auto 0.25 K/uL (0.00-0.50); Eosinophils Percent Auto 3.7 % (0.0-7.0); Hematocrit 35.9 % (33.0-51.0); Hemoglobin* 11.8 gm/dL (12.0-16.0); Immature Granulocytes Abs Auto 0.01 K/uL (0.00-0.30); Immature Granulocytes Pct Auto 0.1 %; Lymphocytes Absolute Auto 2.67 K/uL (0.90-2.90); Lymphocytes Percent Auto 39.3 % (20-44); Mean Corpuscular HGB Conc 33 gm/dL (32-36); Mean Corpuscular Hemoglobin 34 pg (26-34); Mean Corpuscular Volume 103 fL (80-100); Neutrophils Absolute Auto 3.15 K/uL (1.7-7.0); Neutrophils Percent Auto 46.4 % (42.0-72.0); Platelet Count* 148 K/uL (140-440); RDW Coefficient of Variation % 15.3 % (11.5-15.5); Red Blood Count 3.49 m/uL (4.00-5.20); White Blood Count* 6.79 K/uL (4.50-11.00)
[2022-06-04 12:35] LABS: Slide Review Reflex No
[2022-06-04 12:43] LABS: Amphetamine Screen Urine Negative (Negative); Barbiturate Screen Urine Negative (Negative); Benzodiazepines Screen Urine Negative (Negative); Cannabinoid Screen Urine Negative (Negative); Cocaine Screen Urine Negative (Negative); Methadone Screen Urine Negative (Negative); Methamphetamines Screen Urine Negative (Negative); Opiate Screen Urine Negative (Negative); Oxycodone Screen Urine Negative (Negative); Phencyclidine Screen Urine Negative (Negative); Tricyclic Antidepressant Urine Negative (Negative)
[2022-06-04 12:45] LABS: Albumin* 4.4 g/dL (3.3-5.0)
[2022-06-04 12:46] LABS: Chloride* 109 mmol/L (96-114); Potassium* 4.3 mmol/L (3.6-5.1); Sodium* 149 mmol/L (135-149)
[2022-06-04 12:48] LABS: Aspartate Amino Transferase* 110 U/L (12-35); Bilirubin Direct* 0.9 mg/dL (0.0-0.5); Blood Urea Nitrogen* 7 mg/dL (7-30); Carbon Dioxide* 29 mmol/L (20-32); Creatinine* 0.6 mg/dL (0.5-1.5); Estimated Glomerular Filt Rate 105 ml/min; Total Protein* 9.6 g/dL (6.0-8.3)
[2022-06-04 12:49] LABS: Alanine Aminotransferase* 33 U/L (4-35); Alkaline Phosphatase* 101 U/L (40-150); Calcium* 9.4 mg/dL (8.4-10.6); Glucose* 91 mg/dL (60-115)
[2022-06-04 13:00] LABS: Ethanol* 0.43 % (0.01-0.03)
== END 2022-06-04 15:27 | disposition other institution (70) ==
PROVIDERS: Emergency Provider Emergency Medicine Emergency Medical Services
DX: S30.0XXA Contusion of lower back and pelvis, initial encounter (principal); W19.XXXA Unspecified fall, initial encounter; Y93.9 Activity, unspecified; Y92.9 Unspecified place or not applicable; Y99.9 Unspecified external cause status; F10.129 Alcohol abuse with intoxication, unspecified; Y90.8 Blood alcohol level of 240 mg/100 ml or more
CPT/HCPCS: 36415; 72220; 80048; 80076; 80306; 82077; 85025; 99285

== ENCOUNTER 2022-06-04 15:22 | Outpatient (CLI) | payer SELFPAY | END 2022-06-04 15:23 | disposition home or self-care (01) | LOC: AMB 06-28 04:37 | PROVIDERS: Visit Provider Emergency Medicine Emergency Medical Services | DX: F10.129 Alcohol abuse with intoxication, unspecified (principal) | CPT/HCPCS: A0425; A0426 ==

== ENCOUNTER 2022-07-03 18:10 | Outpatient (CLI) | payer SELFPAY | END 2022-07-03 18:11 | disposition home or self-care (01) | PROVIDERS: Visit Provider Family Medicine | DX: F10.129 Alcohol abuse with intoxication, unspecified (principal) | CPT/HCPCS: A0425; A0429 ==

== ENCOUNTER 2022-07-03 18:41 | Emergency (ER) | payer SELFPAY ==
[2022-07-03 18:54] VITALS: BP 146/87; PULSE 93; RESP 16; TEMP 36.6; O2SAT 93; BMI 27.4
--- NOTE | 2022-07-03 19:36 | ED_ITS ---
HPI - Alcohol General Chief Complaint: Alcohol/Intoxication Stated Complaint: ETOH Time Seen by Provider: 07/03/22 19:19 History of Present Illness HPI narrative: This 57-year-old female comes in by ambulance. She called the ambulance seeking help for her problem with alcohol. Her last drink was just prior to arrival here. She is intoxicated with alcohol and her speech is somewhat slurred and slow. She is pleasant and cooperative and seeking help. She was seen by me within the last month or so under circumstances that are similar. She did agree to go to detox and states that that did not help her. She does endorse some thoughts of not wanting to live anymore. 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 She denies using any other street drugs or medications. She states that she has used street drugs in the past including methamphetamines and cocaine and was able to stop using those but is unable to get clean from alcohol. She states that she has financial pressures. She states that her is from [place] and does not understand what she needs in a . Related Data Home Medications Medication Instructions Recorded Confirmed No Known Home Medications 05/15/22 07/03/22 Allergies Allergy/AdvReac Type Severity Reaction Status Date / Time No Known Drug Allergies Allergy Verified 07/03/22 19:11 Review of Systems Status of ROS Reports: 10 or more systems reviewed and unremarkable except as noted in History and below Narrative Constitutional: No fevers, no weight gain or loss. Eyes: No discharge. No vision changes. HENT: No congestion, no sore throat, no ear pain. Cardiovascular: No chest pain, no palpitations. Respiratory: No shortness of breath, no wheezes, no cough. Gastrointestinal: No abdominal pain, no vomiting, no diarrhea. Genitourinary: No dysuria, no hematuria. Musculoskeletal: Normal range of motion. Skin: No rashes, no pruritis. Neurological: No dizziness, weakness, sensory change, speech change. Endo/Heme/Allergies: No bruising or bleeding. No polydipsia. Pysch: Alcohol abuse and intoxication. Suicidal thoughts. All other systems reviewed and are negative. [facility] Medical History Alcohol abuse Anxiety Depression Social History Smoking Status: Smoker, status unknown Do you use any of these nicotine containing products: None How often do you have a drink containing alcohol: 4 or more times a week How many standard drinks containing alcohol do you have on a typical day: 10 or more How often do you have six or more drinks on one occasion: Daily or almost daily AUDIT-C Alcohol total score: 12 Non-prescribed substance use: denies use Exam Narrative: Exam Narrative: Constitutional: Well-developed, well-nourished, no acute distress. HEENT: Normocephalic, atraumatic. Neck: Normal range of motion. Nontender. Supple. Heart: Regular. No murmurs. Normal rate. Intact distal pulses. Lungs: Clear to auscultation. No chest discomfort. No wheezes, rhonchi, or rales. Abdomen: Normal bowel sounds. Nontender. No rebound tenderness. Genitalia: Deferred. Back: No midline tenderness. Normal range of motion. Extremities: Normal range of motion. No injury. Skin: Intact. No rash. Warm. No erythema or pallor. Neurologic: No altered sensation. No weakness. Alert and oriented. Psychiatric: Depressed mood with suicidal thoughts. Intoxicated with alcohol. Nursing notes and vitals signs are reviewed. Const: Vital Signs, click to edit/add: Vital Signs - 24 hr 07/03/22 18:54 Temperature 97.9 F Pulse Rate [Right Pulse Oximeter] 93 Respiratory Rate 16 Blood Pressure [Ri ght Upper Arm] 146/87 H Pulse Oximetry 93 Oxygen Delivery Me thod Room Air Course Vital Signs Vital signs: Initial Vital Signs Temperature 97.9 F 07/03/22 18:54 Temperature Source Temporal Artery Scan 07/03/22 18:54 Pulse Rate 93 07/03/22 18:54 Respiratory Rate 16 07/03/22 18:54 Blood Pressure 146/87 H 07/03/22 18:54 Blood Pressure Mean 106 07/03/22 18:54 Blood Pressure Position Sitting 07/03/22 18:54 Pulse Oximetry 93 07/03/22 18:54 Oxygen Delivery Method 07/03/22 18:54 Vital Signs Temperature 97.9 F 07/03/22 18:54 Pulse Rate 93 07/03/22 18:54 Respiratory Rate 16 07/03/22 18:54 Blood Pressure 146/87 H 07/03/22 18:54 Pulse Oximetry 93 07/03/22 18:54 Oxygen Delivery Method 07/03/22 18:54 Temperature 97.9 F 07/03/22 18:54 Pulse Rate 93 07/03/22 18:54 Respiratory Rate 16 07/03/22 18:54 Blood Pressure 146/87 H 07/03/22 18:54 Pulse Oximetry 93 07/03/22 18:54 Oxygen Delivery Method 07/03/22 18:54 MDM - Alcohol MDM Narrative Medical decision making narrative: This patient is pleasant and cooperative but rather intoxicated with alcohol. She is agreeable to a tele health mental assessment as she is stating that she is not sure that she wants to continue anymore in this life. She does not report any specific plan to end her life. She knows that she needs help with regard to her alcohol addiction. She did agree to a tele health mental assessment. This process is initiated at the end of my shift and care for this patient is handed over to the next physician. Discharge Plan Discharge Clinical Impression: Alcoholic intoxication Prescriptions: No Action No Known Home Medications Follow Up/Referrals: Provider,Not a Local [Primary Care Provider] -
[2022-07-03 19:58] LABS: Basophils Absolute Auto 0.06 K/uL (0.00-0.30); Eosinophils Percent Auto 1.6 % (0.0-7.0); Hematocrit 37.9 % (33.0-51.0); Hemoglobin* 12.5 gm/dL (12.0-16.0); Immature Granulocytes Abs Auto 0.01 K/uL (0.00-0.30); Immature Granulocytes Pct Auto 0.2 %; Lymphocytes Absolute Auto 2.33 K/uL (0.90-2.90); Lymphocytes Percent Auto 37.3 % (20-44); Mean Corpuscular HGB Conc 33 gm/dL (32-36); Mean Corpuscular Hemoglobin 33 pg (26-34); Mean Corpuscular Volume 100 fL (80-100); Monocytes Percent Auto 10.2 % (0.0-11.0); Neutrophils Absolute Auto 3.11 K/uL (1.7-7.0); Neutrophils Percent Auto 49.7 % (42.0-72.0); Platelet Count* 131 K/uL (140-440); Red Blood Count 3.79 m/uL (4.00-5.20); White Blood Count* 6.25 K/uL (4.50-11.00)
[2022-07-03 20:04] LABS: Amphetamine Screen Urine Negative (Negative); Barbiturate Screen Urine Negative (Negative); Benzodiazepines Screen Urine Negative (Negative); Cannabinoid Screen Urine Negative (Negative); Cocaine Screen Urine Negative (Negative); Methadone Screen Urine Negative (Negative); Methamphetamines Screen Urine Negative (Negative); Opiate Screen Urine Negative (Negative); Oxycodone Screen Urine Negative (Negative); Phencyclidine Screen Urine Negative (Negative); Tricyclic Antidepressant Urine Negative (Negative)
[2022-07-03 20:09] LABS: Slide Review Reflex No
[2022-07-03 20:12] LABS: Chloride* 108 mmol/L (96-114)
[2022-07-03 20:13] LABS: Potassium* 4.4 mmol/L (3.6-5.1); Sodium* 148 mmol/L (135-149)
[2022-07-03 20:15] LABS: Carbon Dioxide* 29 mmol/L (20-32); Creatinine* 0.5 mg/dL (0.5-1.5); Est. Creatinine Clearance* 120.72; Estimated Glomerular Filt Rate 109 ml/min
[2022-07-03 20:16] LABS: Blood Urea Nitrogen* 9 mg/dL (7-30); Calcium* 9.3 mg/dL (8.4-10.6); Glucose* 90 mg/dL (60-115)
[2022-07-03 20:25] VITALS: BP 122/72; PULSE 88
[2022-07-03] MEDS: LORazepam 1 MG TABLET PO (20:30)
--- NOTE | 2022-07-03 20:34 | ED.NURSE ---
Pt reporting feeling anxious and agitated. MD notified, MD ordered Ativan. PO Ativan given to pt. Pt pulling off vitals monitoring equipment, is not willing to keep pulse ox or BP cuff on.
--- NOTE | 2022-07-03 20:41 | ED.NURSE ---
Pt requested cup of water, cup of water provided to pt by screenplay writer. Pt then asked for all of her belongings back. Director Product Management explained to pt that per hospital mental health policy she could not have her belongings back at this time. Pt repeatedly asked for her belongings back. Director Product Management explained policy again. Pt stated fuck you and gestured with middle finger at screenplay writer. Director Product Management exited the room. notified of interaction.
[2022-07-03 20:48] LABS: Ethanol* 0.45 % (0.01-0.03)
[2022-07-03] MEDS: OLANZapine 5 MG TAB.RAPDIS 10 MG PO (20:54)
--- NOTE | 2022-07-03 21:02 | ED.NURSE ---
Pt up at doorway, asking again why she can't have her belongings, why she can't leave, stating who's going to stop me?. MD aware of pt's increasing agitation. MD ordered PO Zyprexa, PO Zyprexa given. A R Specialist spent approximately 10 mins verbally deescalating pt, using therapeutic communication and active listening. After verbal deescalation, pt agreeable to rest through the night.
--- NOTE | 2022-07-04 02:17 | ED.NURSE ---
Patient sleeping on cot in room. Patient repositions self.
[2022-07-04 02:28] VITALS: BP 115/74; PULSE 85; RESP 12; O2SAT 92
[2022-07-04 08:06] VITALS: BP 124/58; PULSE 88; RESP 18; TEMP 36.7; O2SAT 92
--- NOTE | 2022-07-04 10:55 | PC.SOCIAL ---
Social work: Met with pt who states she is interested in substance treatment for her alcohol use. Pt is not interested in going to Detox as she has done this recently. Provided pt with list of resources for in-pt and out-pt treatment from [facility]/substance treatment resource list. Discuss local out-pt option of [facility] in [place]. Pt seems interested in this option and is capable of calling them after discharge. Pt is planning to return home at discharge and is requesting transportation but is not able to pay for it. Pt is eligible for a taxi to home paid for by the hospital. RN aware of services provided.
== END 2022-07-04 11:30 | disposition home or self-care (01) ==
PROVIDERS: Emergency Provider Emergency Medicine Emergency Medical Services
DX: F10.129 Alcohol abuse with intoxication, unspecified (principal)
CPT/HCPCS: 36415; 80048; 80306; 82077; 85025; 99284; 99285; A9270

== ENCOUNTER 2022-10-11 00:21 | Outpatient (CLI) | payer MEDICAID, SELFPAY | END 2022-10-11 00:22 | disposition home or self-care (01) | LOC: AMB 08:59 | PROVIDERS: Visit Provider Family Medicine | DX: F10.20 Alcohol dependence, uncomplicated (principal); R41.82 Altered mental status, unspecified | CPT/HCPCS: A0425; A0427 ==

== ENCOUNTER 2022-10-11 01:12 | Emergency (ER) | payer MEDICAID, SELFPAY ==
[2022-10-11 01:48] VITALS: BP 168/95; PULSE 85; RESP 18; TEMP 36.7; O2SAT 99; BMI 16.0
[2022-10-11 02:11] LABS: Basophils Absolute Auto 0.03 K/uL (0.00-0.30); Basophils Percent Auto 0.5 % (0.0-3.0); Eosinophils Absolute Auto 0.07 K/uL (0.00-0.50); Eosinophils Percent Auto 1.2 % (0.0-7.0); Hemoglobin* 11.8 gm/dL (12.0-16.0); Immature Granulocytes Abs Auto 0.01 K/uL (0.00-0.30); Immature Granulocytes Pct Auto 0.2 %; Lymphocytes Percent Auto 16.4 % (20-44); Mean Corpuscular HGB Conc 34 gm/dL (32-36); Mean Corpuscular Hemoglobin 35 pg (26-34); Mean Corpuscular Volume 104 fL (80-100); Monocytes Percent Auto 12.9 % (0.0-11.0); Neutrophils Absolute Auto 3.89 K/uL (1.7-7.0); Neutrophils Percent Auto 68.8 % (42.0-72.0); Platelet Count* 75 K/uL (140-440); Red Blood Count 3.38 m/uL (4.00-5.20); White Blood Count* 5.66 K/uL (4.50-11.00)
[2022-10-11 02:34] LABS: Slide Review Reflex No
[2022-10-11 02:54] LABS: Albumin* 4.2 g/dL (3.3-5.0); Chloride* 102 mmol/L (96-114); Sodium* 141 mmol/L (135-149)
[2022-10-11 02:56] LABS: Creatinine* 0.7 mg/dL (0.5-1.5); Est. Creatinine Clearance* 62.86; Estimated Glomerular Filt Rate 101 ml/min
[2022-10-11 02:57] LABS: Alanine Aminotransferase* 32 U/L (4-35); Alkaline Phosphatase* 83 U/L (40-150); Aspartate Amino Transferase* 89 U/L (12-35); Bilirubin Direct* 5.6 mg/dL (0.0-0.5); Bilirubin Total* 10.7 mg/dL (0.1-1.5); Blood Urea Nitrogen* 36 mg/dL (7-30); Calcium* 9.1 mg/dL (8.4-10.6); Carbon Dioxide* 26 mmol/L (20-32); Glucose* 117 mg/dL (60-115); Lipase* 237 U/L (23-300); Total Protein* 9.4 g/dL (6.0-8.3)
[2022-10-11 03:00] LABS: Ethanol* < 0.01 % (0.01-0.03); Potassium* 2.9 mmol/L (3.6-5.1)
[2022-10-11] MEDS: POTASSIUM BICARB 25 MEQ EFFERVESCENT TAB PO (03:11)
[2022-10-11] MEDS: POTASSIUM CHLORIDE 10 MEQ CAPSULE ER 40 MEQ PO (03:11)
--- NOTE | 2022-10-11 03:23 | CRLHL7_ITS ---
For Patients: As a result of the Century Cures Act, medical imaging exams and procedure reports are released immediately into your electronic medical record. You may view this report before your referring provider. If you have questions, please contact your health care provider. HISTORY: Found down. TECHNIQUE: CT brain without contrast. COMPARISON: CT brain 09/26/2022. FINDINGS: No acute intracranial hemorrhage. No extra-axial collection. No mass effect or midline shift. Mild generalized brain volume loss. Basilar cisterns are patent. Sanchez-white differentiation is maintained. Calvarium is intact. Visualized paranasal sinuses and mastoid air cells are clear. IMPRESSION: No acute intracranial abnormality. No change from 09/26/2022. Please note that all CT scans at this facility use dose modulation, iterative reconstruction, and/or weight-based dosing when appropriate to reduce radiation dose to as low as reasonably achievable. Dictated by Rasta Morgan MD @ 10/11/2022 4:02:24 AM (Electronically Signed)
--- NOTE | 2022-10-11 03:36 | ED_ITS ---
HPI - General Adult General Date Seen: 10/11/22 Chief complaint: Alcohol/Intoxication Stated complaint: alcohol withdrawal Time Seen by Provider: 10/11/22 01:20 Source: patient Mode of arrival: EMS Limitations: no limitations History of Present Illness HPI narrative: Patient is a 57-year-old male in for the 5th time this month. Normally she comes in acutely intoxicated this time she was found lying on the floor when her returned after being gone for four days. She tells me that she has not had anything to eat or drink today. She does not believe that she has fallen. She denies any injury. She believes that she might have been lying on the floor since yesterday. She has done no vomiting. There was no urine or stool on the floor around her. When her found her that way he immediately called the ambulance to take her to the hospital. She tells me that she would have liked to have been helped to bed so she could have just gone to sleep. She tells me that she vomits when she has alcohol withdrawal but has had no vomiting. She believes that the last time she had any alcohol was yesterday but she is not completely clear. She denies a history of seizures. Related Data Previous Rx's Medication Instructions Recorded potassium chloride 20 mEq 20 meq PO DAILY #10 tabs 10/11/22 tablet,extended release Allergies Allergy/AdvReac Type Severity Reaction Status Date / Time No Known Drug Allergies Allergy Verified 10/11/22 01:52 Review of Systems Narrative: Review of systems is significant for chronic depression and heavy daily alcohol use. She has been awake and interactive with blood alcohol levels in excess of 0.5. She has been to detox numerous times. Her is typically away at work from Friday until and that is when she does most of her drinking. She does not see a clinic doctor regularly. Review of systems is outlined above otherwise noted to be negative. [facility] Medical History (Updated 10/11/22 @ 04:04 by Lucius Gutierrez MD) Alcohol abuse ?F10.10 - Alcohol abuse, uncomplicated (ICD-10) Anxiety ?F41.9 - Anxiety disorder, unspecified (ICD-10) Chronic hypokalemia ?E87.6 - Hypokalemia (ICD-10) Depression ?F32.A - Depression, unspecified (ICD-10) Elevated LFTs ?R79.89 - Other specified abnormal findings of blood chemistry (ICD-10) Social History (Updated 10/11/22 @ 04:04 by Lucius Gutierrez MD) Narrative: , heavy daily vodka use Smoking Status: Former smoker Do you use any of these nicotine containing products: None Second hand tobacco smoke exposure: No How often do you have a drink containing alcohol: 4 or more times a week How many standard drinks containing alcohol do you have on a typical day: 10 or more How often do you have six or more drinks on one occasion: Daily or almost daily AUDIT-C Alcohol total score: 12 Non-prescribed substance use: denies use service: No Exam Narrative: Exam Narrative: Vitals noted. She is not intoxicated. HEENT: Normocephalic, atraumatic. Pupils equal round reactive to light and accommodation, extraocular movements are full. Conjunctiva clear. Tympanic membranes are pearly white bilaterally. Posterior pharynx is clear without eryth loretta or exudate. Poor dentition. Neck is supple without adenopathy, thyromegaly, carotid bruit. Lungs: Clear to auscultation in all [place]. No wheezes, rales, rhonchi. Heart: Regular rate and rhythm without murmur. Abdomen: Soft and nontender. No guarding, rigidity, rebound. Bowel sounds are normal. No palpable masses. Extremities: No cyanosis or edema. Good distal pulses. Skin: No abnormalities noted of the exposed skin. She has numerous scattered bruises. Nothing looks acute. Neurologic: Awake, alert, fully oriented. Neurologic exam is nonfocal. Const: Vital Signs, click to edit/add: Vital Signs - 24 hr 10/11/22 01:48 Temperature 98.0 F Pulse Rate [Right Pulse Oximeter] 85 Respiratory Rate 18 Blood Pressure [Ri ght Upper Arm] 168/95 H Pulse Oximetry 99 Oxygen Delivery Me thod Room Air Course Course Hospital Course: Patient is seen and examined. Labs are ordered. CT of her head is also ordered as there is no clear indication as to whether she fell or just lied down. Reevaluation(s) Reevaluation #1: Patient's labs are all fairly unremarkable with exception of a potassium of 2.9. Alcohol level is negative. Her AST and ALT are the best they have ever been but her bilirubin continues to rise. She has a mild anemia at 11.8 with an MCV of 104. Platelet count is chronically low at 75,000. BUN is 36, creatinine 0.7 indicating some mild dehydration. She had a fairly normal CT of her abdomen about two weeks ago. She does have gallstones. She also has evidence of chronic liver disease but no acute findings. Her potassium was replaced orally and she is discharged on a daily dose. She will need further outpatient workup of her elevated bilirubin. She is applying for [facility] and needs to get set up with a PCP. Vital Signs Vital signs: Initial Vital Signs Temperature 98.0 F 10/11/22 01:48 Temperature Source Temporal Artery Scan 10/11/22 01:48 Pulse Rate 85 10/11/22 01:48 Respiratory Rate 18 10/11/22 01:48 Blood Pressure 168/95 H 10/11/22 01:48 Blood Pressure Mean 119 10/11/22 01:48 Blood Pressure Position Sitting 10/11/22 01:48 Pulse Oximetry 99 10/11/22 01:48 Oxygen Delivery Method Room Air 10/11/22 01:48 Vital Signs Temperature 98.0 F 10/11/22 01:48 Pulse Rate 85 10/11/22 01:48 Respiratory Rate 18 10/11/22 01:48 Blood Pressure 168/95 H 10/11/22 01:48 Pulse Oximetry 99 10/11/22 01:48 Oxygen Delivery Method Room Air 10/11/22 01:48 Temperature 98.0 F 10/11/22 01:48 Pulse Rate 85 10/11/22 01:48 Respiratory Rate 18 10/11/22 01:48 Blood Pressure 168/95 H 10/11/22 01:48 Pulse Oximetry 99 10/11/22 01:48 Oxygen Delivery Method Room Air 10/11/22 01:48 Medical Decision Making Lab Data Labs: Lab Results 10/11/22 Range/Units 02:04 WBC 5.66 (4.50-11.00) K/uL RBC 3.38 L (4.00-5.20) m/uL Hgb 11.8 L (12.0-16.0) gm/dL Hct 35.0 (33.0-51.0) % MCV 104 H (80-100) fL MCH 35 H (26-34) pg MCHC 34 (32-36) gm/dL RDW Coeff of Maria Ines 18.0 H (11.5-15.5) % Plt Count 75 L (140-440) K/uL Neut % (Auto) 68.8 (42.0-72.0) % Lymph % (Auto) 16.4 L (20-44) % [place] % (Auto) 12.9 H (0.0-11.0) % Eos % (Auto) 1.2 (0.0-7.0) % Baso % (Auto) 0.5 (0.0-3.0) % Neut # (Auto) 3.89 (1.7-7.0) K/uL Lymph # (Auto) 0.90 (0.90-2.90) K/uL [place] # (Auto) 0.70 (0.00-0.90) K/UL Eos # (Auto) 0.07 (0.00-0.50) K/uL Baso # (Auto) 0.03 (0.00-0.30) K/uL Sodium 141 (135-149) mmol/L Potassium 2.9 L* (3.6-5.1) mmol/L Chloride 102 (96-114) mmol/L Carbon Dioxide 26 (20-32) mmol/L BUN 36 H (7-30) mg/dL Creatinine 0.7 (0.5-1.5) mg/dL Estimated Creat Clear 62.86 Estimated GFR 101 ml/min Glucose 117 H (60-115) mg/dL Calcium 9.1 (8.4-10.6) mg/dL Total Bilirubin 10.7 H (0.1-1.5) mg/dL Direct Bilirubin 5.6 H (0.0-0.5) mg/dL AST 89 H (12-35) U/L ALT 32 (4-35) U/L Alkaline Phosphatase 83 (40-150) U/L Total Protein 9.4 H (6.0-8.3) g/dL Albumin 4.2 (3.3-5.0) g/dL Lipase 237 (23-300) U/L Ethyl Alcohol < 0.01 L (0.01-0.03) % Discharge Plan Discharge Clinical Impression: Chronic hypokalemia, Elevated LFTs Patient Disposition: Home, Self-Care Condition: Stable Additional Instructions: Avoid alcohol. Stay hydrated. Work on your nutrition. Start taking a daily potassium supplement for the next 10 days. Follow-up with your PCP next week for a recheck of your liver function tests as your bilirubin has been rising. Prescriptions: New potassium chloride 20 mEq tablet extended release 20 meq PO DAILY Qty: 10 0RF Follow Up/Referrals: Provider,Not a Local [Primary Care Provider] - Stand Alone Forms: [employer] Info Instructions
[2022-10-11 06:04] VITALS: BP 154/85; PULSE 79; RESP 18; TEMP 36.7; O2SAT 99
[2022-10-11 06:07] VITALS: BP 154/74; PULSE 84; RESP 18; TEMP 36.7; O2SAT 99
[2022-10-11 07:15] VITALS: BP 116/82; PULSE 94; RESP 18; TEMP 37.6
--- NOTE | 2022-10-11 08:23 | ED.NURSE ---
did get dc to home via taxi. was able to ambulate. did eat breakfast. understands dc instructions.
== END 2022-10-11 07:55 | disposition home or self-care (01) ==
PROVIDERS: Emergency Provider Family Medicine
DX: F10.129 Alcohol abuse with intoxication, unspecified (principal); E87.6 Hypokalemia; R94.5 Abnormal results of liver function studies
CPT/HCPCS: 36415; 70450; 80048; 80076; 82077; 83690; 85025; 99283; 99284; A9270

== ENCOUNTER 2022-10-24 20:20 | Outpatient (CLI) | payer MEDICAID, SELFPAY | END 2022-10-24 20:21 | disposition home or self-care (01) | LOC: AMB 11-02 02:34 | PROVIDERS: PCP Internal Medicine; Visit Provider Family Medicine | DX: F10.129 Alcohol abuse with intoxication, unspecified (principal) | CPT/HCPCS: A0425; A0429 ==

== ENCOUNTER 2022-10-24 20:52 | Emergency (ER) | payer MEDICAID, SELFPAY ==
[2022-10-24 21:00] VITALS: BP 130/80; PULSE 105; RESP 14; TEMP 37.1; O2SAT 92; BMI 26.6
--- NOTE | 2022-10-24 21:24 | CRLHL7_ITS ---
For Patients: As a result of the Cures Act, medical imaging exams and procedure reports are released immediately into your electronic medical record. You may view this report before your referring provider. If you have questions, please contact your health care provider. INDICATION: Fall, trauma. TECHNIQUE: CT cervical spine without contrast. COMPARISON: September 2022. FINDINGS: No acute fracture. No listhesis. Bony mineralization is age appropriate. Stable height loss of C7 through T2. No prevertebral soft tissue hematoma or swelling. No soft tissue abnormality is identified. Mild generalized disc space narrowing. No pathologically enlarged lymph nodes. Small left thyroid nodule. Lung apices are clear. IMPRESSION: No discrete acute fracture. Please note that all CT scans at this facility use dose modulation, iterative reconstruction, and/or weight-based dosing when appropriate to reduce radiation dose to as low as reasonably achievable. Dictated by Lucius Ingram MD @ 10/24/2022 10:57:42 PM (Electronically Signed)
--- NOTE | 2022-10-24 21:24 | CRLHL7_ITS ---
For Patients: As a result of the Century Cures Act, medical imaging exams and procedure reports are released immediately into your electronic medical record. You may view this report before your referring provider. If you have questions, please contact your health care provider. INDICATION: Fall TECHNIQUE: CT head without contrast. COMPARISON: CT September 2022. FINDINGS: No intracranial hemorrhage. No discrete mass or mass effect. There is no midline shift. The basilar cisterns are patent. No hydrocephalus. The tate-white matter interface is otherwise preserved. No acute osseous abnormality. No extracalvarial soft tissue abnormality. The mastoid air cells are clear. The paranasal sinuses are well-aerated. The visualized portions of the orbits and globes are unremarkable. IMPRESSION: No acute intracranial process per unenhanced head CT. Please note that all CT scans at this facility use dose modulation, iterative reconstruction, and/or weight-based dosing when appropriate to reduce radiation dose to as low as reasonably achievable. Dictated by Lucius Ingram MD @ 10/24/2022 10:55:01 PM (Electronically Signed)
[2022-10-24 21:45] LABS: Basophils Absolute Auto 0.08 K/uL (0.00-0.30); Basophils Percent Auto 0.9 % (0.0-3.0); Eosinophils Percent Auto 1.1 % (0.0-7.0); Hematocrit 32.2 % (33.0-51.0); Immature Granulocytes Abs Auto 0.08 K/uL (0.00-0.30); Immature Granulocytes Pct Auto 0.9 %; Lymphocytes Percent Auto 17.5 % (20-44); Mean Corpuscular HGB Conc 34 gm/dL (32-36); Mean Corpuscular Hemoglobin 35 pg (26-34); Mean Corpuscular Volume 103 fL (80-100); Monocytes Percent Auto 8.7 % (0.0-11.0); Neutrophils Absolute Auto 6.58 K/uL (1.7-7.0); Neutrophils Percent Auto 70.9 % (42.0-72.0); Platelet Count* 88 K/uL (140-440); RDW Coefficient of Variation % 16.8 % (11.5-15.5); Red Blood Count 3.12 m/uL (4.00-5.20); White Blood Count* 9.27 K/uL (4.50-11.00)
[2022-10-24 21:47] LABS: Slide Review Reflex No
[2022-10-24 21:57] LABS: Chloride* 105 mmol/L (96-114)
[2022-10-24 21:58] LABS: Potassium* 4.5 mmol/L (3.6-5.1); Sodium* 140 mmol/L (135-149)
[2022-10-24 22:00] LABS: Creatinine* 0.8 mg/dL (0.5-1.5); Est. Creatinine Clearance* 75.45; Estimated Glomerular Filt Rate 86 ml/min
[2022-10-24 22:01] LABS: Alanine Aminotransferase* 81 U/L (4-35); Alkaline Phosphatase* 99 U/L (40-150); Aspartate Amino Transferase* 319 U/L (12-35); Bilirubin Direct* 2.3 mg/dL (0.0-0.5); Bilirubin Total* 4.5 mg/dL (0.1-1.5); Blood Urea Nitrogen* 8 mg/dL (7-30); Calcium* 9.3 mg/dL (8.4-10.6); Carbon Dioxide* 25 mmol/L (20-32); Glucose* 114 mg/dL (60-115)
[2022-10-24 22:16] LABS: Ethanol* 0.38 % (0.01-0.03)
--- NOTE | 2022-10-24 22:18 | ED_ITS ---
HPI - General Adult General Date Seen: 10/24/22 Chief complaint: Alcohol/Intoxication Stated complaint: ETOH Time Seen by Provider: 10/24/22 21:03 Source: patient Mode of arrival: EMS Limitations: altered mental status History of Present Illness HPI narrative: Patient is a 57-year-old female who is chronic alcoholic and for some reason always seems to present to the emergency department on nights. Her is generally out of town from Friday until . She drinks about a L of vodka every day and has alcoholic cirrhosis, pancytopenia, elevated LFTs. Tonight she was intoxicated and lying on her couch. She rolled off the couch onto the floor and likely had her cell phone so she could call EMS because she was unable to get up on her own. She states that she did not hit her head but her neck is sore. She is grossly intoxicated. Related Data Allergies Allergy/AdvReac Type Severity Reaction Status Date / Time No Known Drug Allergies Allergy Verified 10/24/22 21:09 Review of Systems Narrative: Chronic alcoholic with anxiety and depression issues. Chronic hypokalemia. She refuses detox and treatment but says she finally has an appointment with primary care provider. She believes it might be Dr. Shultz. Review of systems is otherwise unobtainable. [facility] Medical History (Updated 10/24/22 @ 22:24 by Lucius Gutierrez MD) Alcohol abuse ?F10.10 - Alcohol abuse, uncomplicated (ICD-10) Anxiety ?F41.9 - Anxiety disorder, unspecified (ICD-10) Chronic hypokalemia ?E87.6 - Hypokalemia (ICD-10) Depression ?F32.A - Depression, unspecified (ICD-10) Elevated LFTs ?R79.89 - Other specified abnormal findings of blood chemistry (ICD-10) Social History (Updated 10/11/22 @ 04:04 by Lucius Gutierrez MD) Narrative: , heavy daily vodka use Smoking Status: Former smoker Do you use any of these nicotine containing products: None Second hand tobacco smoke exposure: No How often do you have a drink containing alcohol: 4 or more times a week How many standard drinks containing alcohol do you have on a typical day: 10 or more How often do you have six or more drinks on one occasion: Daily or almost daily AUDIT-C Alcohol total score: 12 Non-prescribed substance use: former substance user service: No Exam Narrative: Exam Narrative: Vitals noted. She reeks of alcohol. HEENT: Eyes are bloodshot. There is scleral icterus. Tympanic membranes are pearly white bilaterally. Posterior pharynx is clear without erythema or exudate. Horrible dentition. Neck is supple without adenopathy, thyromegaly, carotid bruit. Lungs: Clear to auscultation in all [place]. No wheezes, rales, rhonchi. Heart: Regular rate and rhythm without murmur. Abdomen: Soft and nontender. No guarding, rigidity, rebound. Bowel sounds are normal. No palpable masses. Extremities: No cyanosis or edema. Good distal pulses. Skin: No abnormalities noted of the exposed skin. Multiple scattered bruises and abrasions. Const: Vital Signs, click to edit/add: Vital Signs - 24 hr 10/24/22 21:00 Temperature 98.7 F Pulse Rate [Pulse Oximeter] 105 H Respiratory Rate 14 Blood Pressure [Ri ght Upper Arm] 130/80 Pulse Oximetry 92 Oxygen Delivery Me thod Room Air Course Course Hospital Course: Patient seen and examined. Labs as well as a CT of her cervical spine and head are ordered. Reevaluation(s) Reevaluation #1: Labs confirm a blood alcohol of 0.38. Her LFTs show an AST of 319 and ALT of 81. Total bilirubin is 4.5 with a direct of 2.3. Basic metabolic panel is normal. CBC shows a hemoglobin of 11.0 [place] [address] scan of her head is unremarkable. CT scan of her in cervical spine shows no acute fracture. Reevaluation #2: Patient's discharge by cab to return home to her . He turned off his phone and was unwilling to come and get her. She was ambulatory. Vital Signs Vital signs: Initial Vital Signs Temperature 98.7 F 10/24/22 21:00 Temperature Source Temporal Artery Scan 10/24/22 21:00 Pulse Rate 105 H 10/24/22 21:00 Respiratory Rate 14 10/24/22 21:00 Blood Pressure 130/80 10/24/22 21:00 Blood Pressure Mean 96 10/24/22 21:00 Blood Pressure Position Supine 10/24/22 21:00 Pulse Oximetry 92 10/24/22 21:00 Oxygen Delivery Method Room Air 10/24/22 21:00 Vital Signs Temperature 98.7 F 10/24/22 21:00 Pulse Rate 105 H 10/24/22 21:00 Respiratory Rate 14 10/24/22 21:00 Blood Pressure 130/80 10/24/22 21:00 Pulse Oximetry 92 10/24/22 21:00 Oxygen Delivery Method Room Air 10/24/22 21:00 Temperature 98.7 F 10/24/22 21:00 Pulse Rate 105 H 10/24/22 21:00 Respiratory Rate 14 10/24/22 21:00 Blood Pressure 130/80 10/24/22 21:00 Pulse Oximetry 92 10/24/22 21:00 Oxygen Delivery Method Room Air 10/24/22 21:00 Medical Decision Making Lab Data Labs: Lab Results 10/24/22 Range/Units 21:36 WBC 9.27 (4.50-11.00) K/uL RBC 3.12 L (4.00-5.20) m/uL Hgb 11.0 L (12.0-16.0) gm/dL Hct 32.2 L (33.0-51.0) % MCV 103 H (80-100) fL MCH 35 H (26-34) pg MCHC 34 (32-36) gm/dL RDW Coeff of Maria Ines 16.8 H (11.5-15.5) % Plt Count 88 L (140-440) K/uL Neut % (Auto) 70.9 (42.0-72.0) % Lymph % (Auto) 17.5 L (20-44) % Preston % (Auto) 8.7 (0.0-11.0) % Eos % (Auto) 1.1 (0.0-7.0) % Baso % (Auto) 0.9 (0.0-3.0) % Neut # (Auto) 6.58 (1.7-7.0) K/uL Lymph # (Auto) 1.60 (0.90-2.90) K/uL Preston # (Auto) 0.80 (0.00-0.90) K/UL Eos # (Auto) 0.10 (0.00-0.50) K/uL Baso # (Auto) 0.08 (0.00-0.30) K/uL Sodium 140 (135-149) mmol/L Potassium 4.5 (3.6-5.1) mmol/L Chloride 105 (96-114) mmol/L Carbon Dioxide 25 (20-32) mmol/L BUN 8 (7-30) mg/dL Creatinine 0.8 (0.5-1.5) mg/dL Estimated Creat Clear 75.45 Estimated GFR 86 ml/min Glucose 114 (60-115) mg/dL Calcium 9.3 (8.4-10.6) mg/dL Total Bilirubin 4.5 H (0.1-1.5) mg/dL Direct Bilirubin 2.3 H (0.0-0.5) mg/dL AST 319 H (12-35) U/L ALT 81 H (4-35) U/L Alkaline Phosphatase 99 (40-150) U/L Total Protein 9.0 H (6.0-8.3) g/dL Albumin 4.0 (3.3-5.0) g/dL Ethyl Alcohol 0.38 H* (0.01-0.03) % Discharge Plan Discharge Clinical Impression: Alcohol abuse, Alcoholic intoxication, Elevated LFTs Patient Disposition: Home w/ Parent or Adult Condition: Stable Instructions: Abuse of Alcohol (ED) Additional Instructions: Keep your follow-up appointment with your PCP. Stop drinking alcohol, it is killing you. Activity Level: No Restrictions Discharge Diet: Regular Follow Up/Referrals: Addison Shultz MD [Primary Care Provider] - Stand Alone Forms: [email or web address] Info Instructions
--- NOTE | 2022-10-24 22:39 | ED.NURSE ---
Pt was called a taxi and unable to pay, was given a voucher. not answering phone and no other contacts per patient to call. Charge nurse notified. Doctor notified as well.
== END 2022-10-24 22:47 | disposition home or self-care (01) ==
PROVIDERS: Emergency Provider Family Medicine; PCP Internal Medicine
DX: F10.229 Alcohol dependence with intoxication, unspecified (principal); R74.01 Elevation of levels of liver transaminase levels
CPT/HCPCS: 36415; 70450; 72125; 80048; 80076; 82077; 85025; 99283; 99284

== ENCOUNTER 2022-10-25 01:18 | Outpatient (CLI) | payer MEDICAID, SELFPAY | END 2022-10-25 01:19 | disposition home or self-care (01) | LOC: AMB 11-02 02:40 | PROVIDERS: PCP Internal Medicine; Visit Provider Internal Medicine | DX: F10.129 Alcohol abuse with intoxication, unspecified (principal) | CPT/HCPCS: A0425; A0429 ==

== ENCOUNTER 2022-10-25 02:11 | Emergency (ER) | payer MEDICAID, SELFPAY ==
--- NOTE | 2022-10-25 02:13 | ED_ITS ---
HPI - General Adult General Time Seen by Provider: 02:13 Date Seen: 10/25/22 Chief complaint: Alcohol/Intoxication Stated complaint: ETOH Time Seen by Provider: 10/25/22 02:11 Source: patient and EMS Mode of arrival: ambulatory Limitations: no limitations History of Present Illness HPI narrative: 57-year-old female who presents with alcohol intoxication. Patient is well- known to the emergency department. She was seen earlier this evening after she rolled out of bed and was unable to get up on her own. Labs at that time showed normal potassium, patient has a history of hypokalemia. CT scan of the head neck negative, blood alcohol 0.38 at that time. Patient was discharged home and reports that she started drinking again. Again lost her balance and fell at home, no injury, denies head pain or head strike. Has been called EMS in patient return to the emergency department. She expresses desire to go to detox, denies suicide ideation. She says she does not currently take any medications. She does not smoke cigarettes. Related Data Allergies Allergy/AdvReac Type Severity Reaction Status Date / Time No Known Drug Allergies Allergy Verified 10/24/22 21:09 Review of Systems Status of ROS: Reports: 10 or more systems reviewed and unremarkable except as noted in History and below [facility] Medical History (Updated 10/25/22 @ 02:24 by Jose Crawford MD) Alcohol abuse ?F10.10 - Alcohol abuse, uncomplicated (ICD-10) Anxiety ?F41.9 - Anxiety disorder, unspecified (ICD-10) Chronic hypokalemia ?E87.6 - Hypokalemia (ICD-10) Depression ?F32.A - Depression, unspecified (ICD-10) Elevated LFTs ?R79.89 - Other specified abnormal findings of blood chemistry (ICD-10) Social History (Updated 10/11/22 @ 04:04 by Lucius Gutierrez MD) Narrative: , heavy daily vodka use Smoking Status: Former smoker Do you use any of these nicotine containing products: None Second hand tobacco smoke exposure: No How often do you have a drink containing alcohol: 4 or more times a week How many standard drinks containing alcohol do you have on a typical day: 10 or more How often do you have six or more drinks on one occasion: Daily or almost daily AUDIT-C Alcohol total score: 12 Non-prescribed substance use: former substance user service: No Exam Narrative: Exam Narrative: General: Well-developed and well-nourished, no acute distress, intoxicated Head: Atraumatic and normocephalic Eyes: Pupils are equal reactive, extraocular motions intact, scleral icterus ENT: External nose and ears are normal, posterior pharynx without erythema or exudate, poor dentition Neck: No midline cervical tenderness, full spontaneous range of motion the neck, trachea midline, no adenopathy Heart: Regular rate and rhythm no murmurs or thrills Lungs: Clear to auscultation bilaterally without wheezes or crackles Abdomen: Soft, nontender, nondistended with active bowel sounds Musculoskeletal: No tenderness, deformity, or edema Neurologic: Awake, alert, and oriented x3, no gross focal neurologic deficits, cranial nerves intact as tested, slurred speech Psych: Mood and affect are appropriate Skin: No rashes Const: Vital Signs, click to edit/add: Vital Signs - 24 hr 10/25/22 02:17 Temperature 98.2 F Respiratory Rate 18 Blood Pressure [10 6/64] 106/64 Pulse Oximetry 98 Oxygen Delivery Me thod Room Air Course Course Hospital Course: Patient seen examined, prior records are reviewed including prior visit earlier today and also 2 weeks ago for alcohol intoxication, also has known history of LFTs and cirrhosis. At visit earlier today, patient rolled off count was unable to get up on her own. CT scan of the head neck negative, labs and demonstrated elevated LFTs which are standard for the patient, as well as elevated alcohol level. This evening, patient again fell. She has no external signs of trauma, did not hit her head or pass out. She would like to go to detox, it sounds like there is a bed available at [facility]. Alcohol level will be checked and will plan to discharge to detox. At this point, patient is medically stable for detox. Vital Signs Vital signs: Initial Vital Signs Temperature 98.2 F 10/25/22 02:17 Temperature Source Temporal Artery Scan 10/25/22 02:17 Respiratory Rate 18 10/25/22 02:17 Blood Pressure 106/64 10/25/22 02:17 Blood Pressure Mean 78 10/25/22 02:17 Blood Pressure Position Supine 10/25/22 02:17 Pulse Oximetry 98 10/25/22 02:17 Oxygen Delivery Method Room Air 10/25/22 02:17 Vital Signs Temperature 98.2 F 10/25/22 02:17 Respiratory Rate 18 10/25/22 02:17 Blood Pressure 106/64 10/25/22 02:17 Pulse Oximetry 98 10/25/22 02:17 Oxygen Delivery Method Room Air 10/25/22 02:17 Temperature 98.2 F 10/25/22 02:17 Respiratory Rate 18 10/25/22 02:17 Blood Pressure 106/64 10/25/22 02:17 Pulse Oximetry 98 10/25/22 02:17 Oxygen Delivery Method Room Air 10/25/22 02:17 Medical Decision Making Medical Records Medical records reviewed: Yes I reviewed the patient's medical records Lab Data Lab results reviewed: Yes I reviewed the patient's lab results Discharge Plan Discharge Clinical Impression: Alcohol dependence with acute alcoholic intoxication, Alcoholic cirrhosis Patient Disposition: Home, Self-Care Condition: Stable Instructions: Cirrhosis of the Liver (ED), Alcohol Intoxication (DC), Alcohol Dependence (ED) Additional Instructions: Go to detox Activity Level: No Restrictions Discharge Diet: Regular Follow Up/Referrals: Addison Shultz MD [Primary Care Provider] - Stand Alone Forms: [employer] Info Instructions
[2022-10-25 02:17] VITALS: BP 106/64; RESP 18; TEMP 36.8; O2SAT 98; BMI 23.1
--- NOTE | 2022-10-25 02:33 | ED.NURSE ---
Dispatch contacted for transport. They state they will call back with ETA.
[2022-10-25 03:29] VITALS: BP 100/63; RESP 18; TEMP 36.7; O2SAT 98
[2022-10-25 03:35] VITALS: BP 100/63; RESP 18; TEMP 36.7
--- NOTE | 2022-10-25 03:40 | ED.NURSE ---
Patient transported to [facility] via EMS. Belongings sent with patient. Paperwork sent with patient included face sheet x2, ED transfer report, PCS form, transfer consent and transport hold. [facility] called and updated regarding transfer.
--- NOTE | 2022-10-25 03:53 | ED.NURSE ---
reprot given to [facility] RN. pt. transferred via [facility].
== END 2022-10-25 03:42 | disposition home or self-care (01) ==
LOC: ED 02:29
PROVIDERS: Emergency Provider Family Medicine; PCP Internal Medicine
DX: F10.229 Alcohol dependence with intoxication, unspecified (principal); K70.30 Alcoholic cirrhosis of liver without ascites
CPT/HCPCS: 36415; 82077; 99283; 99284

== ENCOUNTER 2023-02-12 06:57 | Outpatient (CLI) | payer MEDICAID, SELFPAY | END 2023-02-12 06:58 | disposition home or self-care (01) | LOC: AMB 02-20 05:30 | PROVIDERS: Visit Provider Family Medicine | DX: S09.93XA Unspecified injury of face, initial encounter (principal); S59.912A Unspecified injury of left forearm, initial encounter; W19.XXXA Unspecified fall, initial encounter; Y92.9 Unspecified place or not applicable | CPT/HCPCS: A0425; A0427 ==

== ENCOUNTER 2023-02-12 07:34 | Emergency (ER) | payer MEDICAID, SELFPAY ==
[2023-02-12] VITALS (36 sets, daily range): BP systolic 120–166; BP diastolic 69–100; PULSE 80–142; RESP 20–32; TEMP 38.3–39.9; O2SAT 89–96
--- NOTE | 2023-02-12 | CRLHL7_ITS ---
For Patients: As a result of the Century Cures Act, medical imaging exams and procedure reports are released immediately into your electronic medical record. You may view this report before your referring provider. If you have questions, please contact your health care provider. INDICATION: Trauma, fall TECHNIQUE: CT head without contrast. COMPARISON: Head CT 10/24/2022 FINDINGS: CSF spaces: Within normal limits for age. Brain parenchyma: The tate-white differentiation is normal. No sign of mass, hemorrhage, or midline shift. Skull base and calvarium: The visualized paranasal sinuses and mastoid air cells demonstrate no acute or significant findings. The visualized orbits are grossly unremarkable. No skull fractures. Congenital segmentation anomalies of C1, please see cervical spine CT report for comments. IMPRESSION: Unremarkable noncontrast head CT. Please note that all CT scans at this facility use dose modulation, iterative reconstruction, and/or weight-based dosing when appropriate to reduce radiation dose to as low as reasonably achievable. Dictated by Jose Solis MD @ 02/12/2023 8:47:04 AM (Electronically Signed)
--- NOTE | 2023-02-12 | CRLHL7_ITS ---
For Patients: As a result of the Century Cures Act, medical imaging exams and procedure reports are released immediately into your electronic medical record. You may view this report before your referring provider. If you have questions, please contact your health care provider. INDICATION: Fall, trauma TECHNIQUE: CT cervical spine without contrast. COMPARISON: Cervical spine CT 10/24/2022 FINDINGS: Vertebrae: Slight decreased height at the C7, T1 and T2 vertebral bodies re-demonstrated with minimal sclerosis at the endplate consistent with older compression type deformities. No acute fracture seen. 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 Discs and facet joints: Disc spaces and facets are within normal limits. Extraspinal findings: Prevertebral soft tissues, visualized airway, and visualized lungs are unremarkable. IMPRESSION: 1. No evidence of acute fracture. 2. Old compression fractures of C7, T1 and T2 similar to the prior exam. 3. 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 Please note that all CT scans at this facility use dose modulation, iterative reconstruction, and/or weight-based dosing when appropriate to reduce radiation dose to as low as reasonably achievable. Dictated by Jose Solis MD @ 02/12/2023 8:17:15 AM (Electronically Signed)
--- NOTE | 2023-02-12 07:49 | ED.FALL ---
HPI - Fall General Date Seen: 02/12/23 <Valdo Orr MD - Last Filed: 02/12/23 08:24> Chief Complaint: Fall/Minor Trauma <Valdo Orr MD - Last Filed: 02/12/23 08:24> Stated Complaint: TTA-fall <Valdo Orr MD - Last Filed: 02/12/23 08:24> Time Seen by Provider: 02/12/23 07:49 <Valdo Orr MD - Last Filed: 02/12/23 08:24> Source: patient and EMS <Valdo Orr MD - Last Filed: 02/12/23 08:24> Mode of arrival: EMS <Valdo Orr MD - Last Filed: 02/12/23 08:24> Limitations: no limitations <Valdo Orr MD - Last Filed: 02/12/23 08:24> History of Present Illness HPI Narrative: Patient is a 57-year-old female brought in by EMS as a TT a red. She was found outside her apartment, on the ground by a bystander, blood was around her mouth, she was only oriented to person and place. But not to date. States he has a long history of alcoholism. Cirrhosis. Frequent falls, she tells me here, her name and date, there is blood around her mouth. I met her initially in the hallway. And CT of her head neck will be done. She is on no chronic medications she has no doctor. She has been to detox a number of times. Most recent time here in October. She complains in no pain currently, and wants to go home. <Valdo Orr MD - Last Filed: 02/12/23 08:24> MD complaint: fall <Valdo Orr MD - Last Filed: 02/12/23 08:24> Onset (ago): unknown <Valdo Orr MD - Last Filed: 02/12/23 08:24> Fall from: standing <Valdo Orr MD - Last Filed: 02/12/23 08:24> Fall witnessed: no <Valdo Orr MD - Last Filed: 02/12/23 08:24> Place fall occurred: home <Valdo Orr MD - Last Filed: 02/12/23 08:24> Loss of consciousness: No <Valdo Orr MD - Last Filed: 02/12/23 08:24> Prolonged down time: unclear <Valdo Orr MD - Last Filed: 02/12/23 08:24> Symptoms prior to fall: none <Valdo Orr MD - Last Filed: 02/12/23 08:24> Context: tripped/slipped and alcohol use <Valdo Orr MD - Last Filed: 02/12/23 08:24> Location of injury: mouth <Valdo Orr MD - Last Filed: 02/12/23 08:24> Severity: moderate <Valdo Orr MD - Last Filed: 02/12/23 08:24> Associated symptoms (after fall): denies <Valdo Orr MD - Last Filed: 02/12/23 08:24> Related Data Home Medications: Home Medications Medication Instructions Recorded Confirmed No Known Home Medications 02/12/23 02/12/23 <Valdo Orr MD - Last Filed: 02/12/23 08:24> Allergies/Adverse Reactions: Allergies Allergy/AdvReac Type Severity Reaction Status Date / Time No Known Drug Allergies Allergy Verified 10/24/22 21:09 <Valdo Orr MD - Last Filed: 02/12/23 08:24> Review of Systems Status of ROS: Reports: 10 or more systems reviewed and unremarkable except as noted in History and below <Valdo Orr MD - Last Filed: 02/12/23 08:24> Eyes: Reports: other (Scleral icterus is noted.) <Valdo Orr MD - Last Filed: 02/12/23 08:24> PFSH PFS Medical History: Medical History Elevated LFTs ?R79.89 - Other specified abnormal findings of blood chemistry (ICD-10) Chronic hypokalemia ?E87.6 - Hypokalemia (ICD-10) Alcohol abuse ?F10.10 - Alcohol abuse, uncomplicated (ICD-10) Anxiety ?F41.9 - Anxiety disorder, unspecified (ICD-10) Depression ?F32.A - Depression, unspecified (ICD-10) <Valdo Orr MD - Last Filed: 02/12/23 08:24> Social History: Social History Narrative: , heavy daily vodka use Smoking Status: Former smoker Do you use any of these nicotine containing products: None Second hand tobacco smoke exposure: No How often do you have a drink containing alcohol: 4 or more times a week How many standard drinks containing alcohol do you have on a typical day: 10 or more How often do you have six or more drinks on one occasion: Daily or almost daily AUDIT-C Alcohol total score: 12 Non-prescribed substance use: former substance user service: No <Valdo Orr MD - Last Filed: 02/12/23 08:24> Exam Narrative: Exam Narrative: Patient is seen in stable 1, after she came back from CT, she is alert to person place and time to this examiner. She has the dried blood around her mouth. Scleral icterus is noted bilaterally in her eyes. Her TMs are normal, I can not find any evidence of any injury around her face, but head or neck, her neck is full range of motion on flexion extension and lateral flexion, no tenderness noted over C-spine. Cranial nerves 3-12 are normal, she does have a tongue laceration on the left side of her tongue. Is not acutely bleeding, appears to be stopped. It does not appear suturable, will need to be clean to be checked for sure. Chest is good air entry bilaterally with no wheezing crackles noted, heart sounds are normal. Her abdomen is obese, her liver is firm, approximately 3 finger breaths below the right side. There appears to be some shifting dullness she moves all extremities independently well her distal and proximal muscle strength is good. She does appear to have tremor and possibly asterixis I do not see any petechiae, but she has bruising noted on her right shoulder. Her extremities show normal range of motion bilaterally, both proximal and distal, normal power her pelvis is normal stable to rocking, she is log-rolled, her thoracic and lumbar spine are palpated and nontender. <Valdo Orr MD - Last Filed: 02/12/23 08:24> Const: Vital Signs, click to edit/add: Vital Signs - 24 hr 02/12/23 08:07 02/12/23 08:10 02/12/23 08:19 Temperature 101.1 F H Pulse Rate Pulse Rate [Left P ulse Oximeter] 128 H 135 H Pulse Rate [Right Pulse Oximeter] 135 H Respiratory Rate 32 H 26 H 20 Blood Pressure Blood Pressure [Le ft Upper Arm] 166/100 H 166/100 H 157/98 H Pulse Oximetry 89 92 94 Oxygen Delivery Me thod Room Air Room Air 02/12/23 08:20 02/12/23 08:23 02/12/23 08:24 Temperature 101 F H Pulse Rate 134 H 132 H Pulse Rate [Left P ulse Oximeter] Pulse Rate [Right Pulse Oximeter] Respiratory Rate 26 H Blood Pressure 166/100 H Blood Pressure [Le ft Upper Arm] 166/100 H Pulse Oximetry 90 92 Oxygen Delivery Me thod 02/12/23 08:30 02/12/23 08:31 02/12/23 08:41 Temperature Pulse Rate 128 H 129 H 135 H Pulse Rate [Left P ulse Oximeter] Pulse Rate [Right Pulse Oximeter] Respiratory Rate Blood Pressure 148/93 H 161/100 H Blood Pressure [Le ft Upper Arm] Pulse Oximetry 94 94 93 Oxygen Delivery Me thod 02/12/23 08:45 02/12/23 08:50 02/12/23 08:51 Temperature 102.7 F H Pulse Rate 141 H 138 H Pulse Rate [Left P ulse Oximeter] Pulse Rate [Right Pulse Oximeter] Respiratory Rate Blood Pressure 140/96 H Blood Pressure [Le ft Upper Arm] Pulse Oximetry 93 94 Oxygen Delivery Me thod 02/12/23 09:00 02/12/23 09:01 02/12/23 09:11 Temperature Pulse Rate 133 H 131 H 133 H Pulse Rate [Left P ulse Oximeter] Pulse Rate [Right Pulse Oximeter] Respiratory Rate Blood Pressure 146/89 H 145/91 H Blood Pressure [Le ft Upper Arm] Pulse Oximetry 93 92 93 Oxygen Delivery Me thod 02/12/23 09:15 02/12/23 09:21 02/12/23 09:29 Temperature Pulse Rate 132 H 142 H 138 H Pulse Rate [Left P ulse Oximeter] Pulse Rate [Right Pulse Oximeter] Respiratory Rate Blood Pressure 157/97 H 151/95 H Blood Pressure [Le ft Upper Arm] Pulse Oximetry 92 96 93 Oxygen Delivery Me thod 02/12/23 09:30 02/12/23 09:31 02/12/23 09:32 Temperature 101.8 F H Pulse Rate 134 H 134 H 133 H Pulse Rate [Left P ulse Oximeter] Pulse Rate [Right Pulse Oximeter] Respiratory Rate Blood Pressure 143/86 H Blood Pressure [Le ft Upper Arm] Pulse Oximetry 94 93 93 Oxygen Delivery Me thod 02/12/23 09:41 02/12/23 09:45 02/12/23 09:51 Temperature Pulse Rate 132 H 132 H Pulse Rate [Left P ulse Oximeter] Pulse Rate [Right Pulse Oximeter] Respiratory Rate Blood Pressure 150/89 H 143/88 H Blood Pressure [Le ft Upper Arm] Pulse Oximetry 92 92 Oxygen Delivery Me thod 02/12/23 10:00 02/12/23 10:25 02/12/23 10:26 Temperature Pulse Rate 135 H 127 H Pulse Rate [Left P ulse Oximeter] Pulse Rate [Right Pulse Oximeter] Respiratory Rate Blood Pressure 146/81 H 132/83 Blood Pressure [Le ft Upper Arm] Pulse Oximetry 91 92 Oxygen Delivery Me thod 02/12/23 10:30 02/12/23 10:31 02/12/23 10:41 Temperature Pulse Rate 131 H 129 H 128 H Pulse Rate [Left P ulse Oximeter] Pulse Rate [Right Pulse Oximeter] Respiratory Rate Blood Pressure 132/92 H 120/74 Blood Pressure [Le ft Upper Arm] Pulse Oximetry 92 93 93 Oxygen Delivery Me thod 02/12/23 10:45 02/12/23 10:51 02/12/23 10:59 Temperature Pulse Rate 129 H 130 H 127 H Pulse Rate [Left P ulse Oximeter] Pulse Rate [Right Pulse Oximeter] Respiratory Rate Blood Pressure 120/81 131/82 Blood Pressure [Le ft Upper Arm] Pulse Oximetry 91 92 94 Oxygen Delivery Me thod 02/12/23 11:00 02/12/23 11:01 02/12/23 11:11 Temperature 103.9 F H Pulse Rate 80 130 H 125 H Pulse Rate [Left P ulse Oximeter] Pulse Rate [Right Pulse Oximeter] Respiratory Rate Blood Pressure 126/85 122/69 Blood Pressure [Le ft Upper Arm] Pulse Oximetry 92 93 94 Oxygen Delivery Me thod <Valdo S Seper, MD - Last Filed: 02/12/23 08:24> Vital Signs, click to edit/add: Vital Signs - 24 hr 02/12/23 08:07 02/12/23 08:10 02/12/23 08:19 Temperature 101.1 F H Pulse Rate Pulse Rate [Left P ulse Oximeter] 128 H 135 H Pulse Rate [Right Pulse Oximeter] 135 H Respiratory Rate 32 H 26 H 20 Blood Pressure Blood Pressure [Le ft Upper Arm] 166/100 H 166/100 H 157/98 H Pulse Oximetry 89 92 94 Oxygen Delivery Me thod Room Air Room Air 02/12/23 08:20 02/12/23 08:23 02/12/23 08:24 Temperature 101 F H Pulse Rate 134 H 132 H Pulse Rate [Left P ulse Oximeter] Pulse Rate [Right Pulse Oximeter] Respiratory Rate 26 H Blood Pressure 166/100 H Blood Pressure [Le ft Upper Arm] 166/100 H Pulse Oximetry 90 92 Oxygen Delivery Me thod 02/12/23 08:30 02/12/23 08:31 02/12/23 08:41 Temperature Pulse Rate 128 H 129 H 135 H Pulse Rate [Left P ulse Oximeter] Pulse Rate [Right Pulse Oximeter] Respiratory Rate Blood Pressure 148/93 H 161/100 H Blood Pressure [Le ft Upper Arm] Pulse Oximetry 94 94 93 Oxygen Delivery Me thod 02/12/23 08:45 02/12/23 08:50 02/12/23 08:51 Temperature 102.7 F H Pulse Rate 141 H 138 H Pulse Rate [Left P ulse Oximeter] Pulse Rate [Right Pulse Oximeter] Respiratory Rate Blood Pressure 140/96 H Blood Pressure [Le ft Upper Arm] Pulse Oximetry 93 94 Oxygen Delivery Me thod 02/12/23 09:00 02/12/23 09:01 02/12/23 09:11 Temperature Pulse Rate 133 H 131 H 133 H Pulse Rate [Left P ulse Oximeter] Pulse Rate [Right Pulse Oximeter] Respiratory Rate Blood Pressure 146/89 H 145/91 H Blood Pressure [Le ft Upper Arm] Pulse Oximetry 93 92 93 Oxygen Delivery Me thod 02/12/23 09:15 02/12/23 09:21 02/12/23 09:29 Temperature Pulse Rate 132 H 142 H 138 H Pulse Rate [Left P ulse Oximeter] Pulse Rate [Right Pulse Oximeter] Respiratory Rate Blood Pressure 157/97 H 151/95 H Blood Pressure [Le ft Upper Arm] Pulse Oximetry 92 96 93 Oxygen Delivery Az thod 02/12/23 09:30 02/12/23 09:31 02/12/23 09:32 Temperature 101.8 F H Pulse Rate 134 H 134 H 133 H Pulse Rate [Left P ulse Oximeter] Pulse Rate [Right Pulse Oximeter] Respiratory Rate Blood Pressure 143/86 H Blood Pressure [Le ft Upper Arm] Pulse Oximetry 94 93 93 Oxygen Delivery Me od 02/12/23 09:41 02/12/23 09:45 02/12/23 09:51 Temperature Pulse Rate 132 H 132 H Pulse Rate [Left P ulse Oximeter] Pulse Rate [Right Pulse Oximeter] Respiratory Rate Blood Pressure 150/89 H 143/88 H Blood Pressure [Le ft Upper Arm] [facility]ximetry 92 [facility] 10[facility]00 02/12/23 10:25 02/12/23 10:26 Temperature Pulse Rate 135 H 127 H Pulse Rate [Left P ulse Oximeter] Pulse Rate [Right Pulse Oximeter] Respiratory Rate Blood Pressure 146/81 H 132/83 Blood Pressure [Le ft Upper Arm] Pulse Oximetry 91 92 [facility] 02/[facility]/23 10:30 02/12/23 10:31 02/12/23 10:41 Temperature Pulse Rate 131 H 129 H 128 H Pulse Rate [Left P ulse Oximeter] Pulse Rate [Right Pulse Oximeter] Respiratory Rate Blood Pressure 132/92 H 120/74 Blood Pressure [Le ft Upper Arm] Pulse Oximetry 92 93 [facility] 02/12/23 10:45 02/12/23 10:51 02/12/23 10:59 Temperature Pulse Rate 129 H 130 H 127 H Pulse Rate [Left P ulse Oximeter] Pulse Rate [Right Pulse Oximeter] Respiratory Rate Blood Pressure 120/81 131/82 Blood Pressure [Le ft Upper Arm] Pulse Oximetry 91 92 94 Oxygen Delivery Az thod 02/12/23 11:00 02/12/23 11:01 02/12/23 11:11 Temperature 103.9 F H Pulse Rate 80 130 H 125 H Pulse Rate [Left P ulse Oximeter] Pulse Rate [Right Pulse Oximeter] Respiratory Rate Blood Pressure 126/85 122/69 Blood Pressure [Le ft Upper Arm] Pulse Oximetry 92 93 94 Oxygen Delivery Me thod <Leo Valentine MD - Last Filed: 02/12/23 16:44> Documenting provider has reviewed patient's vital signs: yes <Valdo Orr MD - Last Filed: 02/12/23 08:24> Course Vital Signs Vital signs: Initial Vital Signs Pulse Rate 128 H 02/12/23 08:07 Pulse Rhythm Regular 02/12/23 08:07 Respiratory Rate 32 H 02/12/23 08:07 Respiratory Depth Normal 02/12/23 08:07 Blood Pressure 166/100 H 02/12/23 08:07 Blood Pressure Mean 122 H 02/12/23 08:07 Blood Pressure Position Sitting 02/12/23 08:07 Pulse Oximetry 89 02/12/23 08:07 Vital Signs Pulse Rate 128 H 02/12/23 08:07 Respiratory Rate 32 H 02/12/23 08:07 Blood Pressure 166/100 H 02/12/23 08:07 Pulse Oximetry 89 02/12/23 08:07 Temperature 103.9 F H 02/12/23 11:01 Pulse Rate 125 H 02/12/23 11:11 Respiratory Rate 26 H 02/12/23 08:20 Blood Pressure 122/69 02/12/23 11:11 Pulse Oximetry 94 02/12/23 11:11 Oxygen Delivery Method Room Air 02/12/23 08:19 <Valdo Orr MD - Last Filed: 02/12/23 08:24> Initial Vital Signs Pulse Rate 128 H 02/12/23 08:07 Pulse Rhythm Regular 02/12/23 08:07 Respiratory Rate 32 H 02/12/23 08:07 Respiratory Depth Normal 02/12/23 08:07 Blood Pressure 166/100 H 02/12/23 08:07 Blood Pressure Mean 122 H 02/12/23 08:07 Blood Pressure Position Sitting 02/12/23 08:07 Pulse Oximetry 89 02/12/23 08:07 Vital Signs Pulse Rate 128 H 02/12/23 08:07 Respiratory Rate 32 H 02/12/23 08:07 Blood Pressure 166/100 H 02/12/23 08:07 Pulse Oximetry 89 02/12/23 08:07 Temperature 103.9 F H 02/12/23 11:01 Pulse Rate 125 H 02/12/23 11:11 Respiratory Rate 26 H 02/12/23 08:20 Blood Pressure 122/69 02/12/23 11:11 Pulse Oximetry 94 02/12/23 11:11 Oxygen Delivery Method Room Air 02/12/23 08:19 <Leo Valentine MD - Last Filed: 02/12/23 16:44> MDM - Fall MDM Narrative Medical decision making narrative: Life-threatening differential diagnosis is considered include: Subarachnoid hemorrhage, subdural hemorrhage, epidural hemorrhage. Other differential diagnosis considered include concussion, closed head injury, or neck fracture. She clearly has the tongue laceration, she did throw up approximately 50-100 mL of blood here, I suspect from the tongue laceration although GI bleed cannot be ruled out given her obvious cirrhosis, and liver failure. I will type and screen were at this time. We will give her fluids, banana bag, vitamins folate. Laboratory work pending, my initial read of the CT of her head neck shows no acute findings. She will be signed over to my partner for further assessment. <Valdo Orr MD - Last Filed: 02/12/23 08:24> Life-threatening differential diagnosis is considered include: Subarachnoid hemorrhage, subdural hemorrhage, epidural hemorrhage. Other differential diagnosis considered include concussion, closed head injury, or neck fracture. She clearly has the tongue laceration, she did throw up approximately 50-100 mL of blood here, I suspect from the tongue laceration although GI bleed cannot be ruled out given her obvious cirrhosis, and liver failure. I will type and screen were at this time. We will give her fluids, banana bag, vitamins folate. Laboratory work pending, my initial read of the CT of her head neck shows no acute findings. She will be signed over to my partner for further assessment. Addendum 10:24 a.m.: The patient has a head CT looks unremarkable, neck CT shows old compression fracture no acute fracture. She has checks x-ray that shows pneumonia in the right lower lobe. She was given IV Zosyn and Levaquin. Of note is her pulse is irregular and rating running between 120 and 130 she got a temp of 101.8? consistent with pneumonia her bleeding in her mouth his stop from her tongue laceration. She does vomit occasional small amounts of bloody material that may be from the blood she swallowed from her tongue lack. She is very hesitant to going to a hospital or be treated. Also of note is her white count is normal hemoglobin is 11.8 platelet count is very low at 44,000 four thousand, INR elevated 1.56 PTT 34. Her total bilirubin is markedly elevated 9.2, she has scleral jaundice AST is 232 ALT 77. She was typed and crossed. The patient this point has no alcohol on board, and she is stressing that she wants to go home. I think that is catastrophic if she goes home including not receiving treatment for pneumonia, possible GI bleed, liver failure. I will attempt to make arrangements to transfer to tertiary care. Will make transfer arrangements. Addendum 10:[address] Fairbanks in the [facility] ER accepted the patient in transfer kindly. Transfer sheets completed, patient hemodynamically stable. <Leo Valentine MD - Last Filed: 02/12/23 16:44> Medical Records Attestation: I reviewed the patient's medical records. <Valdo Orr MD - Last Filed: 02/12/23 08:24> Lab Data Labs: Lab Results 02/12/23 02/12/23 Range/Units 08:03 10:25 WBC 5.04 (4.50-11.00) K/uL RBC 3.38 L (4.00-5.20) m/uL Hgb 11.8 L (12.0-16.0) gm/dL Hct 33.9 (33.0-51.0) % MCV 100 (80-100) fL MCH 35 H (26-34) pg MCHC 35 (32-36) gm/dL RDW Coeff of Maria Ines 16.8 H (11.5-15.5) % Plt Count 44 L* (140-440) K/uL Neut % (Auto) 80.0 H (42.0-72.0) % Lymph % (Auto) 9.5 L (20-44) % Door % (Auto) 9.7 (0.0-11.0) % Eos % (Auto) 0.2 (0.0-7.0) % Baso % (Auto) 0.4 (0.0-3.0) % Neut # (Auto) 4.00 (1.7-7.0) K/uL Lymph # (Auto) 0.50 L (0.90-2.90) K/uL Door # (Auto) 0.50 (0.00-0.90) K/UL Eos # (Auto) 0.01 (0.00-0.50) K/uL Baso # (Auto) 0.02 (0.00-0.30) K/uL Abs Immat Gran (auto) 0.01 (0.00-0.30) K/uL Imm/Tot Granulo (auto) 0.2 % Diff Slide Review Acceptable Review (Acceptable) INR 1.56 H (0.91-1.10) APTT 34 H (23-33) Seconds Sodium 132 L (135-149) mmol/L Potassium 3.5 L (3.6-5.1) mmol/L Chloride 93 L (96-114) mmol/L Carbon Dioxide 24 (20-32) mmol/L BUN 14 (7-30) mg/dL Creatinine 0.7 (0.5-1.5) mg/dL Estimated GFR 101 ml/min Glucose 156 H (60-115) mg/dL Calcium 10.1 (8.4-10.6) mg/dL Total Bilirubin 9.2 H (0.1-1.5) mg/dL Direct Bilirubin 3.8 H (0.0-0.5) mg/dL AST 232 H (12-35) U/L ALT 77 H (4-35) U/L Alkaline Phosphatase 105 (40-150) U/L Total Protein 9.7 H (6.0-8.3) g/dL Albumin 4.5 (3.3-5.0) g/dL Urine Color Brown A (Yellow) Urine Appearance Slightly Cloudy A (Clear) Urine pH 7.5 (5.0-8.5) Ur Specific [place] 1.020 (1.000-1.030) Urine Protein 3+ A (Negative) Urine Glucose (UA) Negative (Negative) Urine Ketones 1+ A (Negative) Urine Blood 2+ A (Negative) Urine Nitrite Negative (Negative) Urine Bilirubin 2+ A (Negative) Urine Urobilinogen 4.0 A (0.2-1.0) Ur Leukocyte Esterase Negative (Negative) Urine RBC 2-5 A (0-2) Urine WBC 0-2 (0-5) Ur Squamous Epith Cells Few (None-Few) Urine Bacteria Few A (None) Urine Opiates Screen Negative (Negative) Ur Oxycodone Screen Negative (Negative) Urine Methadone Screen Negative (Negative) Ur Propoxyphene Screen Negative (Negative) Ur Barbiturates Screen Negative (Negative) U Tricyclic Antidepress Negative (Negative) Ur Phencyclidine Scrn Negative (Negative) Ur Amphetamines Screen Negative (Negative) U Methamphetamines Scrn Negative (Negative) U Benzodiazepines Scrn Negative (Negative) Urine Cocaine Screen Negative (Negative) U Marijuana (THC) Screen Negative (Negative) Ur Drug Screen Comment See Note Ethyl Alcohol < 0.01 L (0.01-0.03) % Blood Type A Positive Antibody Screen NEGATIVE <Valdo Orr MD - Last Filed: 02/12/23 08:24> Lab Results 02/12/23 02/12/23 Range/Units 08:03 10:25 WBC 5.04 (4.50-11.00) K/uL RBC 3.38 L (4.00-5.20) m/uL Hgb 11.8 L (12.0-16.0) gm/dL Hct 33.9 (33.0-51.0) % MCV 100 (80-100) fL MCH 35 H (26-34) pg MCHC 35 (32-36) gm/dL RDW Coeff of Maria Ines 16.8 H (11.5-15.5) % Plt Count 44 L* (140-440) K/uL Neut % (Auto) 80.0 H (42.0-72.0) % Lymph % (Auto) 9.5 L (20-44) % Door % (Auto) 9.7 (0.0-11.0) % Eos % (Auto) 0.2 (0.0-7.0) % Baso % (Auto) 0.4 (0.0-3.0) % Neut # (Auto) 4.00 (1.7-7.0) K/uL Lymph # (Auto) 0.50 L (0.90-2.90) K/uL Door # (Auto) 0.50 (0.00-0.90) K/UL Eos # (Auto) 0.01 (0.00-0.50) K/uL Baso # (Auto) 0.02 (0.00-0.30) K/uL Abs Immat Gran (auto) 0.01 (0.00-0.30) K/uL Imm/Tot Granulo (auto) 0.2 % Diff Slide Review Acceptable Review (Acceptable) INR 1.56 H (0.91-1.10) APTT 34 H (23-33) Seconds Sodium 132 L (135-149) mmol/L Potassium 3.5 L (3.6-5.1) mmol/L Chloride 93 L (96-114) mmol/L Carbon Dioxide 24 (20-32) mmol/L BUN 14 (7-30) mg/dL Creatinine 0.7 (0.5-1.5) mg/dL Estimated GFR 101 ml/min Glucose 156 H (60-115) mg/dL Calcium 10.1 (8.4-10.6) mg/dL Total Bilirubin 9.2 H (0.1-1.5) mg/dL Direct Bilirubin 3.8 H (0.0-0.5) mg/dL AST 232 H (12-35) U/L ALT 77 H (4-35) U/L Alkaline Phosphatase 105 (40-150) U/L Total Protein 9.7 H (6.0-8.3) g/dL Albumin 4.5 (3.3-5.0) g/dL Urine Color Brown A (Yellow) Urine Appearance Slightly Cloudy A (Clear) Urine pH 7.5 (5.0-8.5) Ur Specific [place] 1.020 (1.000-1.030) Urine Protein 3+ A (Negative) Urine Glucose (UA) Negative (Negative) Urine Ketones 1+ A (Negative) Urine Blood 2+ A (Negative) Urine Nitrite Negative (Negative) Urine Bilirubin 2+ A (Negative) Urine Urobilinogen 4.0 A (0.2-1.0) Ur Leukocyte Esterase Negative (Negative) Urine RBC 2-5 A (0-2) Urine WBC 0-2 (0-5) Ur Squamous Epith Cells Few (None-Few) Urine Bacteria Few A (None) Urine Opiates Screen Negative (Negative) Ur Oxycodone Screen Negative (Negative) Urine Methadone Screen Negative (Negative) Ur Propoxyphene Screen Negative (Negative) Ur Barbiturates Screen Negative (Negative) U Tricyclic Antidepress Negative (Negative) Ur Phencyclidine Scrn Negative (Negative) Ur Amphetamines Screen Negative (Negative) U Methamphetamines Scrn Negative (Negative) U Benzodiazepines Scrn Negative (Negative) Urine Cocaine Screen Negative (Negative) U Marijuana (THC) Screen Negative (Negative) Ur Drug Screen Comment See Note Ethyl Alcohol < 0.01 L (0.01-0.03) % Blood Type A Positive Antibody Screen NEGATIVE <Leo Valentine MD - Last Filed: 02/12/23 16:44> Discharge Plan Discharge Clinical Impression: GI bleed, Alcoholic liver failure, Pneumonia <Valdo Orr MD - Last Filed: 02/12/23 08:24> Patient Disposition: Xfer Other <Valdo Orr MD - Last Filed: 02/12/23 08:24> Prescriptions: No Action No Known Home Medications <Valdo Orr MD - Last Filed: 02/12/23 08:24> Stand Alone Forms: MyHealth Info Instructions <Valdo Orr MD - Last Filed: 02/12/23 08:24>
[2023-02-12] MEDS: ONDANSETRON 2 MG/ML inj 4 MG IVP (08:21)
[2023-02-12] MEDS: 0.9 % SODIUM CHLORIDE 1000 ml 1,000 ML IV (08:21)
[2023-02-12 08:38] LABS: Basophils Absolute Auto 0.02 K/uL (0.00-0.30); Basophils Percent Auto 0.4 % (0.0-3.0); Eosinophils Absolute Auto 0.01 K/uL (0.00-0.50); Eosinophils Percent Auto 0.2 % (0.0-7.0); Hematocrit 33.9 % (33.0-51.0); Hemoglobin* 11.8 gm/dL (12.0-16.0); Immature Granulocytes Abs Auto 0.01 K/uL (0.00-0.30); Immature Granulocytes Pct Auto 0.2 %; Lymphocytes Percent Auto 9.5 % (20-44); Mean Corpuscular HGB Conc 35 gm/dL (32-36); Mean Corpuscular Hemoglobin 35 pg (26-34); Mean Corpuscular Volume 100 fL (80-100); Monocytes Percent Auto 9.7 % (0.0-11.0); RDW Coefficient of Variation % 16.8 % (11.5-15.5); Red Blood Count 3.38 m/uL (4.00-5.20); White Blood Count* 5.04 K/uL (4.50-11.00)
--- NOTE | 2023-02-12 08:38 | CRLHL7_ITS ---
For Patients: As a result of the Cures Act, medical imaging exams and procedure reports are released immediately into your electronic medical record. You may view this report before your referring provider. If you have questions, please contact your health care provider. Indication: Fever Comparison: Two-view chest September 26, 2022 Technique: Single AP view chest Findings: There is hyperinflation and chronic interstitial change. There is dense airspace opacification of the right lower lobe likely representing developing infiltrate. There is mild interstitial prominence. The cardiac silhouette is mildly prominent. The bony thorax is grossly intact. Impression: Dense airspace opacification of the right lower lobe likely representing developing infiltrate with mild superimposed pulmonary vascular congestion or bronchial thickening. Dictated by Clifford Randolph MD @ 02/12/2023 9:20:27 AM (Electronically Signed)
--- NOTE | 2023-02-12 08:50 | ED.NURSE ---
MD notified of patients temperature. Declines interventions. Fluids completed, per MD - no more fluids needed.
[2023-02-12] MEDS: PIPERACILLIN/TAZOBACTAM 3.375 GM in 0.9 % SODIUM CHLORIDE Mini-bag 100 ML IVPB (08:53)
[2023-02-12 08:54] LABS: Albumin* 4.5 g/dL (3.3-5.0)
[2023-02-12 08:55] LABS: Chloride* 93 mmol/L (96-114); INR 1.56 (0.91-1.10); Potassium* 3.5 mmol/L (3.6-5.1); Prothrombin Time 19.5 Seconds; Sodium* 132 mmol/L (135-149)
[2023-02-12 08:56] LABS: Partial Thromboplastin Time* 34 Seconds (23-33)
[2023-02-12 08:57] LABS: Alanine Aminotransferase* 77 U/L (4-35); Alkaline Phosphatase* 105 U/L (40-150); Aspartate Amino Transferase* 232 U/L (12-35); Bilirubin Direct* 3.8 mg/dL (0.0-0.5); Bilirubin Total* 9.2 mg/dL (0.1-1.5); Total Protein* 9.7 g/dL (6.0-8.3)
[2023-02-12 08:58] LABS: Blood Urea Nitrogen* 14 mg/dL (7-30); Carbon Dioxide* 24 mmol/L (20-32); Creatinine* 0.7 mg/dL (0.5-1.5); Estimated Glomerular Filt Rate 101 ml/min; Glucose* 156 mg/dL (60-115)
[2023-02-12 08:59] LABS: Calcium* 10.1 mg/dL (8.4-10.6)
[2023-02-12 09:00] LABS: Ethanol* < 0.01 % (0.01-0.03)
[2023-02-12 09:15] LABS: Platelet Count* 44 K/uL (140-440); Slide Review Reflex Yes
[2023-02-12 09:17] LABS: Slide Review Acceptable Review (Acceptable)
--- NOTE | 2023-02-12 09:35 | ED.NURSE ---
Pt vomiting approx 250cc of mucusy blood.
[2023-02-12] MEDS: levoFLOXacin 500 MG TABLET PO (09:43)
[2023-02-12 10:33] LABS: Appearance Urine Slightly Cloudy (Clear); Bilirubin Urine 2+ (Negative); Blood Urine 2+ (Negative); Color Urine Brown (Yellow); Glucose Urine Negative (Negative); Ketones Urine 1+ (Negative); Leukocyte Esterase Urine Negative (Negative); Nitrite Urine Negative (Negative); Protein Urine 3+ (Negative); pH Urine 7.5 (5.0-8.5)
[2023-02-12 10:39] LABS: Amphetamine Screen Urine Negative (Negative); Barbiturate Screen Urine Negative (Negative); Benzodiazepines Screen Urine Negative (Negative); Cannabinoid Screen Urine Negative (Negative); Cocaine Screen Urine Negative (Negative); Methadone Screen Urine Negative (Negative); Methamphetamines Screen Urine Negative (Negative); Opiate Screen Urine Negative (Negative); Oxycodone Screen Urine Negative (Negative); Phencyclidine Screen Urine Negative (Negative); Tricyclic Antidepressant Urine Negative (Negative)
[2023-02-12 10:52] LABS: Bacteria Urine Few; Squamous Epithelial Cell Urine Few (None-Few); WBC Urine 0-2 (0-5)
[2023-02-12] MEDS: PHYTONADIONE (VIT K1) 5 MG in 0.9 % SODIUM CHLORIDE 50 ml 50 ML 100 MG IVPB (11:05)
--- NOTE | 2023-02-12 11:22 | ED.NURSE ---
Report given to EMS. Tx to [facility] ED via ambulance. Report called to ED RN at [facility]. Temp at time of tx was 103.9. Vit K infusing.
[2023-02-19 13:01] LABS: Glucose, Point-of-Care* 142 mg/dl (60-115)
== END 2023-02-12 11:22 | disposition other institution (70) ==
PROVIDERS: Family Medicine; Emergency Provider Family Medicine
DX: K92.2 Gastrointestinal hemorrhage, unspecified (principal); J18.9 Pneumonia, unspecified organism; K70.40 Alcoholic hepatic failure without coma; F10.20 Alcohol dependence, uncomplicated
CPT/HCPCS: 36415; 70450; 71045; 72125; 80048; 80076; 80306; 81001; 82077; 82947; 85025; 85610; 85730; 86850; 86900; 86901; 87040; 87086; 93005; 96365; 96375; 99285; 99291; A9270; G0390; J2405; J2543; J3430; J7030

== ENCOUNTER 2023-02-12 11:10 | Outpatient (CLI) | payer MEDICAID, SELFPAY | END 2023-02-12 11:11 | disposition home or self-care (01) | LOC: AMB 02-20 05:34 | PROVIDERS: Visit Provider Family Medicine | DX: K92.2 Gastrointestinal hemorrhage, unspecified (principal); K70.40 Alcoholic hepatic failure without coma; J18.9 Pneumonia, unspecified organism | CPT/HCPCS: A0425; A0434 ==

== ENCOUNTER 2023-09-02 19:03 | Outpatient (CLI) | payer MEDICAID, SELFPAY | END 2023-09-02 19:04 | disposition home or self-care (01) | LOC: AMB 09-19 13:56 | PROVIDERS: Visit Provider Emergency Medicine | DX: R07.9 Chest pain, unspecified (principal) | CPT/HCPCS: A0998 ==

== ENCOUNTER 2024-09-17 18:27 | Outpatient (CLI) | payer MEDICAID, SELFPAY | END 2024-09-17 18:28 | disposition home or self-care (01) | LOC: AMB 09-20 11:22 | PROVIDERS: PCP Family Medicine; Visit Provider Emergency Medicine | DX: S09.93XA Unspecified injury of face, initial encounter (principal); R42 Dizziness and giddiness; W00.0XXA Fall on same level due to ice and snow, initial encounter; Y92.007 Garden or yard of unspecified non-institutional (private) residence as the place of occurrence of the external cause | CPT/HCPCS: A0425; A0427 ==

== ENCOUNTER 2024-09-17 18:57 | Emergency (ER) | payer MEDICAID, SELFPAY ==
--- OUTSIDE RECORDS SUMMARY | 2024-09-17 18:59 | XMS_ITS | Referral Summary ---
Author Organization [facility] Address [address] [place] [address] Care Team Providers Care Jewelry Sales Representative Name Role Phone None, Primary Care Provider Unavailabl e Clinic, No Primary Unavailable Unavailable Allergies No known active allergies Medications multivitamin (CERTAVITE) 18-400 mg-mcg oral tablet Take 1 tablet by mouth once daily. 30 tablet 02/14/2023 10:40 AM CDT 02/15/2023 Active naltrexone (REVIA) 50 mg oral tablet Take 0.5 tablets (25 mg) by mouth once daily. 30 tablet 02/14/2023 10:40 AM CDT 02/15/2023 Active sertraline (ZOLOFT) 50 mg oral tablet Take 1 tablet (50 mg) by mouth once daily. 60 tablet 02/14/2023 10:40 AM CDT 02/15/2023 Active gabapentin (NEURONTIN) 100 mg oral capsule Take 1 capsule (100 mg) by mouth three times a day. 180 capsule 02/14/2023 10:40 AM CDT 02/14/2023 Active hydrOXYzine pamoate (VISTARIL) 25 mg oral capsule Take 1 capsule (25 mg) by mouth three times a day as needed. 60 capsule 02/14/2023 10:40 AM CDT 02/14/2023 Active Active Problems Problem Noted Date Diagnosed Date Alcohol withdrawal seizure with complication 08/2022 Social History Tobacco Use Types Packs/Day Years Used Date Smoking Tobacco: Never Passive Smoke Exposure: Never Smokeless Tobacco: Never Tobacco Cessation:Counseling Given: Not Answered Alcohol Use Standard Drinks/Week Comments Yes 0 (1 standard drink = 0.6 oz pur e alcohol) AUDIT-C Answer Date Recorded Q1: How often do you have a drink containing alcohol? 4 or more times a week 02/12/2023 Q2: How many drinks containi ng alcohol do you have on a typical day when you are drinking? 3 or 4 Q3: How often do you have si x or more drinks on one occasion? Daily or almost daily 02/12/2023 Comments No Sex and Gender Information Value Date Recorded Sex Assigned at Not on file Legal Sex Female 10:37 AM CDT Gender Identity Not on file Sexual Orientation Not on file Last Filed Vital Signs Vital Sign Reading Time Taken Comments Blood Pressure 118/60 02/14/2023 1:22 PM CDT Pulse 66 02/14/2023 1:22 PM CDT Temperature 36.6 C (97.8 F) 02/14/2023 1:22 PM CDT Respiratory Rate 16 02/14/2023 1:22 PM CDT Oxygen Saturation 93% 02/14/2023 11:23 AM CDT Inhaled Oxygen Concentration - - Weight 75.9 kg (167 lb 4.8 oz) 02/12/2023 5:58 P M CDT Height 170.2 cm (5' 7) 02/12/2023 5:58 PM CDT Body Mass Index 26.2 02/12/2023 5:58 PM CDT Plan of Treatment Not on file Insurance [facility] Advance Directives For more information, please contact: [phone] * Full Code (Latest Code Status on File) Date Activated Date Inactivated Comments 02/12/2023 5:43 PM 02/14/2023 7:50 PM Question Answer Comments How was code status determined? Previous [facility] Care Teams Jewelry Sales Representative Relationship Specialty Start Date End Date None, PCP - General 02/12/23 Clinic, No Primary PCP - [facility] Care Clinic 02/12/23
--- OUTSIDE RECORDS SUMMARY | 2024-09-17 18:59 | XMS_ITS | Clinical Summary ---
Author Organization [facility] Address [address] [address] Phone Care Team Providers Care Refueling Ramp Attendant Name Role Phone Unavailable Primary Care Provider Unavailabl e Allergies No known active allergies Medications albuterol HFA (PROAIR HFA, VENTOLIN HFA) 108 (90 Base) MCG/ACT inhalation aerosol Inhale 2 Puffs into the lungs four times a day. Shake before using. 1 Inhaler 09/01/2018 Active Active Problems Problem Noted Date Diagnosed Date Folate deficiency 02/04/2022 Closed fracture of multiple ribs of left side Compression fracture of C7 vertebra 02/04/2022 Compression fracture of T1 vertebra 02/04/2022 Compression fracture of T2 vertebra 02/04/2022 Alcoholic liver failure 02/03/2022 Hepatic encephalopathy 02/03/2022 Fall at home 02/03/2022 Alcoholism 02/03/2022 Coagulopathy 02/03/2022 Hypokalemia 02/03/2022 Hypomagnesemia 02/03/2022 Anemia, unspecified type 02/03/2022 Overview (02/04/2022): Added automatically from request for surgery [id number] Abnormal CT of the abdomen 02/03/2022 Overview (02/04/2022): Added automatically from request for surgery [id number] Surgical History Surgery Date Site/Laterality Comments UPPER GASTROINTESTINAL ENDOSCOPY 02/04/2022 Esophagu s/N/A no repeat needed Social History Tobacco Use Types Packs/Day Years Used Date Smoking Tobacco: Never Smokeless Tobacco: Never Alcohol Use Standard Drinks/Week Comments Yes 0 (1 standard drink = 0.6 oz pure alcohol) patient states I'm an alcoholic Comments No Sex and Gender Information Value Date Recorded Sex Assigned at Not on file Legal Sex Female 10:58 AM [employer] Gender Identity Not on file Sexual Orientation Not on file Obstetrics History Last Filed Vital Signs Vital Sign Reading Time Taken Comments Blood Pressure 98/59 02/07/2022 11:01 AM CDT Pulse 82 02/07/2022 11:01 AM CDT Temperature 36.5 C (97.7 F) 02/07/2022 11:01 AM CDT Respiratory Rate 14 02/07/2022 11:01 AM CDT Oxygen Saturation 95% 02/07/2022 11:01 AM CDT Inhaled Oxygen Concentration - - Weight 81 kg (178 lb 9.2 oz) 02/06/2022 8:53 AM CDT Height 167.6 cm (5' 6) 02/04/2022 12:54 AM CDT Body Mass Index 28.82 02/04/2022 12:54 AM CDT Plan of Treatment Health Maintenance Due Date Last Done Comments CT Colonography 1965 Cervical Cancer Screening 1965 Cologuard 1965 Colonoscopy 1965 Colorectal Cancer Screening 1965 FIT/FOBT 1965 Last pap w/ HPV Testing 1965 Last pap w/o HPV Testing 1965 MAMMO,SCREEN 1965 Sigmoidoscopy 1965 Hepatitis B Vaccine (Standin g Order) (1 of 3 - 19+ 3-dose series) 1984 PERTUSSIS (Standing Order) 1984 Pneumococcal Vaccine: 50+ yr s (Standing Order) (1 of 2 - PCV) 1984 TETANUS (Standing Order) 1984 Shingrix (Zoster recombinant ) vaccine (Standing Order) (1 of 2) 2015 COVID-19 Vaccine (2023-2 5 season) 2024 Influenza Vaccine Seasonal (Standing Order) (#1) 2024 HPV Vaccine (Standing Order) Aged Out No longer eligible based on patient's age to complete this topic Advance Directives For more information, please contact: [phone] * Full Code (Latest Code Status on File) Date Activated Date Inactivated Comments 02/04/2022 12:20 AM 02/07/2022 7:58 PM
--- OUTSIDE RECORDS SUMMARY | 2024-09-17 18:59 | XMS_ITS | Clinical Summary ---
Author Organization [facility] Address [facility] [place] [address] Care Team Providers Care Grey Percher Name Role Phone HuntertelFranky MD Primary Care Provider + Allergies Active Allergy Reactions Criticality Noted Date Comments Spironolactone Rash Medium 12/22/2023 Medications Graduated Compression StockingsIndica tions:Bilateral lower extremity edema For personal use. Length: calf Strength: 20-30 mmHg 3 Packet 1 4 Active naltrexone (REVIA) 50 mg tabletIndicatio ns:Hepatic cirrhosis, unspecified hepatic cirrhosis type, unspecified whether ascites present (HC),Alcohol dependence with unspecified alcohol-induced disorder (HC) Take 1 Tablet (50 mg) by mouth once daily. 4 Active gabapentin (NEURONTIN) 100 mg capsuleIndicati ons:Alcohol dependence with unspecified alcohol-induced disorder (HC) Take 2 Capsules (200 mg) by mouth three times daily. 4 Active potassium chloride (KLOR-CON M10) 10 mEq extended-releas e tablet (part/cryst)Ind ications:Hepati c cirrhosis, unspecified hepatic cirrhosis type, unspecified whether ascites present (HC) Take 1 Tablet (10 mEq) by mouth once daily with a meal. 90 Tablet 3 4 Active triamcinolone 0.1 % lotionIndicatio ns:Dermatitis Apply topically to affected area(s) three times daily. 60 mL 2 4 Active hydrOXYzine HCL (ATARAX) 25 mg tabletIndicatio ns:Pruritus Take 1 Tablet (25 mg) by mouth every 6 hours if needed for Itching. 60 Tablet 2 4 Active furosemide (LASIX) 20 mg tabletIndicatio ns:Peripheral edema Take 2 Tablets (40 mg) by mouth once daily in the morning. 90 Tablet 3 4 Active Multivitamin Cmb No.21-Iron-FA 18-400 mg-mcg tabIndications: Alcohol dependence with unspecified alcohol-induced disorder (HC) Take 1 Tablet by mouth once daily. 100 Tablet 3 5 Active DULoxetine (CYMBALTA) 20 mg Delayed-release capsuleIndicati ons:Depression, recurrent Take 1 Capsule (20 mg) by mouth two times daily. 60 Capsule 5 5 Active traZODone (DESYREL) 50 mg tabletIndicatio ns:Insomnia, idiopathic Take 1 Tablet (50 mg) by mouth at bedtime. 31 Tablet 5 5 Active traZODone (DESYREL) 50 mg tablet TAKE ONE OR TWO TABLETS BY MOUTH AT BEDTIME NEEDED FOR SLEEP* 4 09/08/19 25 Discontinu ed(Reorder (E-cancel not sent)) Active Problems Problem Noted Date Diagnosed Date Bilateral lower extremity edema 12/22/2023 Acute liver failure without hepatic coma 024 High-risk human papillomavir us (HPV) DNA detected in cervical specimen, not type 16 or 18 04/09/2023 Overview (06/15/2024): 03/2023 NIL/HPV+, HPV 16/18 negative 05/2024 NIL/HPV+, HPV 16/18 negative Plan: Colposcopy Alcohol dependence with unsp ecified alcohol-induced disorder 02/18/2023 Overview (02/18/2023): Likely withdrawal seizure 02/2023 Folate deficiency 02/04/2022 Anemia 02/03/2022 Overview (11/18/2023): Added automatically from request for surgery [id number] Resolved Problems Problem Noted Date Diagnosed Date Resolved Date Alcohol withdrawal seizure with complication 07/23/2024 Encounters Date Type Department Care Team Description 09/08/2024 12:50 PM NEUROPATHOLOGIST Office Visit [facility] [address] [place] [address] Franky Ayoub MD Depression (Follow up); Immunization/Injection 09/07/2024 9:00 AM NEUROPATHOLOGIST Ancillary Procedure [facility] [address] [place] [address] 09/07/2024 Travel 08/25/2024 1:45 PM NEUROPATHOLOGIST - 08/25/2024 11:59 PM NEUROPATHOLOGIST Hospital Encounter [address] [address] Oziel Valdez MD Kaufenberg, Rachel, PT 08/25/2024 Travel 08/19/2024 12:30 PM NEUROPATHOLOGIST Ancillary Procedure [facility] [address] [place] [address] 08/18/2024 9:04 AM NEUROPATHOLOGIST - 08/18/2024 11:59 PM NEUROPATHOLOGIST Hospital Encounter [address] [address] Oziel Valdez MD Kaufenberg, Rachel, PT 08/18/2024 Travel 08/05/2024 Transcribe Orders [facility] [place] [phone] Zara Gould MD 08/04/2024 1:52 PM NEUROPATHOLOGIST - 08/04/2024 11:59 PM NEUROPATHOLOGIST Hospital Encounter [address] [address] Oziel Valdez MD Kaufenberg, Rachel, PT Frequent falls; Bilateral rotator cuff syndrome; Nontraumatic incomplete tear of left rotator cuff; Nontraumatic incomplete rupture of rotator cuff, right; Leg weakness, bilateral 08/04/2024 Travel 07/30/2024 11:00 AM NEUROPATHOLOGIST Ancillary Procedure [facility] [address] [place] [address] 07/30/2024 9:55 AM NEUROPATHOLOGIST Office Visit [facility] [address] [place] [address] Oziel Valdez MD Musculoskeletal Problem (Follow-up bilateral shoulder pain/Review MRI results ) 07/30/2024 Travel 07/26/2024 Telephone [facility] [address] [place] [address] Oziel Valdez MD Appointment 07/22/2024 10:25 AM NEUROPATHOLOGIST Office Visit [facility] [address] [place] [address] Franky Ayoub MD Follow Up (Pain all over body, depression) 07/22/2024 9:30 AM NEUROPATHOLOGIST Ancillary Procedure [address] [address] 07/22/2024 8:45 AM NEUROPATHOLOGIST Ancillary Procedure [address] [address] 07/22/2024 Nurse/Clinic Staff Only [address] [address] Franky Ayoub MD 07/22/2024 Travel 07/19/[address] [address] Franky Ayoub MD Refill Request (Furosemide, Multivitamin, Potassium) 07/13/2024 1:50 PM NEUROPATHOLOGIST Office Visit [facility] [address] [place] [address] Oziel Valdez MD Musculoskeletal Problem (Follow-up Bilateral Shoulder pain/DOO: 08/2023) 07/13/2024 10:43 AM NEUROPATHOLOGIST - 07/13/2024 11:59 PM NEUROPATHOLOGIST Hospital Encounter [address] [address] Oziel Valdez MD Kaufenberg, Rachel, PT 07/13/2024 Travel 06/30/2024 12:55 PM NEUROPATHOLOGIST - 06/30/2024 11:59 PM NEUROPATHOLOGIST Hospital Encounter [facility] [address] [address] Oziel Valdez MD Kaufenberg, Rachel, PT 06/30/2024 Travel 06/25/2024 10:25 AM NEUROPATHOLOGIST Procedure Only [facility] [address] [place] [address] Love Du, DO Procedure (Positive HPV on pap on 06/03/24) 06/25/2024 Travel 06/23/2024 12:35 PM NEUROPATHOLOGIST - 06/23/2024 11:59 PM NEUROPATHOLOGIST Hospital Encounter [facility] [address] [address] Oziel Valdez MD Kaufenberg, Rachel, PT 06/23/2024 Travel from Last 3 Months Immunizations Name Administration Dates Next Due Hepatitis B (Adult) 03/18/2007,09/30/2006 Hepatitis B, Unspecified 03/18/2007,09/30/2006 INFLUENZA, IIV3 PF (AGE >= 6 MO) 04/22/2024 Influenza, IIV3 (Age >=3 years) 05/27/2017 Influenza, IIV4 04/01/2023 Influenza, IIV4 (=>6mos) MDV 07/21/2018 MMR 09/28/2018 Tdap 11/04/2006 Zoster (Shingrix-RZV, recombinant) 09/08/2024, Family History Medical History Relation Name Comments Good Health Daughter Diabetes type II Father Neuropathy Father Heart failure Mother age 81 No Known Problems Sister Relation Name Status Comments Daughter Alive Father Mother Sister Social History Tobacco Use Types Packs/Day Years Used Date Smoking Tobacco: Former Cigarettes 0.3 33 1 5 - 2018 Passive Smoke Exposure: Never Smokeless Tobacco: Never Tobacco Cessation:Counseling Given: Yes Alcohol Use Standard Drinks/Week Comments Not Currently 0 (1 standard drink = 0.6 oz pure alcohol) 20-24 drinks per week previously. Has 2 DWIs in the last year. . Quit 09/04/23 PHQ-2 Answer Date Recorded PHQ-2 TOTAL SCORE 3 09/08/2024 Social Connections Answer Date Recorded Do you often feel lonely or isolated from those around you? 0 01/13/2024 Financial Resource Strain Answer Date R ecorded Difficulty of Paying Living Expenses 3 01/13/2024 Difficulty of Paying Living Expenses Not on file 01/13/2024 Food Insecurity Answer Date Recorded Do you worry your food will run out before you are able to buy more? 1 01/13/2024 Transportation Needs Answer Date Record ed Does lack of transportation keep you from medica l appointments? 1 01/13/2024 Does lack of transportation keep you from work, meetings or getting things that you need? 1 01/13/2024 Housing Stability Answer Date Recorded What is your housing situation today? 1 01/13/2024 Interpersonal Safety Answer Date Record ed Are you being hit, kicked, p ushed or yelled at (see row info)? No 04/01/2024 Interpersonal Safety Abuse 12 - 18 Not on file 04/01/2024 Interpersonal Safety Ambulatory Vulnerability No t on file 04/01/2024 Utilities Answer Date Recorded Do you have trouble paying f or utilities (for example, heat, electricity, water, phone)? 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 file Not on file Not on file Obstetrics History Last Filed Vital Signs Vital Sign Reading Time Taken Comments Blood Pressure 136/72 09/08/2024 12:35 PM NEUROPATHOLOGIST Pulse 70 09/08/2024 12:35 PM NEUROPATHOLOGIST Temperature 36.6 C (97.9 F) 06/03/2024 10:26 AM NEUROPATHOLOGIST Respiratory Rate 14 04/01/2024 9:00 PM CDT Oxygen Saturation 100% 09/08/2024 12:35 PM NEUROPATHOLOGIST Inhaled Oxygen Concentration - - Weight 73.1 kg (161 lb 3.2 oz) 09/08/2024 12:35 PM NEUROPATHOLOGIST Height 167.9 cm (5' 6.1) 09/08/2024 12:35 PM CS T Body Mass Index 25.94 09/08/2024 12:35 PM NEUROPATHOLOGIST Plan of Treatment Upcoming Encounters Date Type Department Care Team (Late st Contact Info) Description 09/22/2024 1:45 PM CDT Appointment [address] [facility] [address] Belle Holm, PT [address] [facility] [address] 09/29/2024 1:45 PM CDT Appointment [facility] [address] [facility] [address] Bisi Rivas V, RECONCILIATION MANAGER [address] [facility] [address] 10/06/2024 1:45 PM CDT Appointment [address] [facility] [address] Bisi Rivas V, RECONCILIATION MANAGER [address] [facility] [address] 10/13/2024 1:45 PM CDT Appointment [address] [place] [address] Belle Holm, PT [address] [facility] [address] 10/20/2024 1:45 PM CDT Appointment [address] [place] [address] Belle Holm, PT [address] [facility] [address] 10/27/2024 1:45 PM CDT Appointment [address] [place] [address] Belle Holm, PT 35 [facility] [address] 11/03/2024 1:45 PM CDT Appointment [address] [place] [address] Belle Holm, PT [address] [facility] [address] [place] [address] 11/17/2024 2:05 PM CDT Office Visit [facility] [address] [place] [address] VoteFranky sheets MD [address] [place] [address] Health Maintenance Due Date Last Done Comments Pneumococcal series for age 50+ (1 of 2 - PCV) 1984 Tetanus booster 11/04/2016 11/04/2006 COVID-19 vaccine series ( - season) 2024 Mammogram for age 45-75 06/11/2025 06/11/2024, 05/01 Pap test for age 21-65 06/25/2025 (Verified in Care Everywhere or Patient Record), 06/03/2024, 04/01/2023, Additional history exists BMI (ht and wt on same day) for age 18+ 09/08/2025 09/08/2024, 07/22/2024, 06/03/2024, Additional history exists Depression screening for age 12+ 09/08/2025 09/08/2024, 07/22/2024, 07/22/2024, Additional history exists Fecal testing sDNA-FIT (Crumpler guard) for age 45-75 07/21/2027 07/21/2024 Lipids for age 45-75 06/03/2029 06/03/2024, 03/28/20 23 Tdap Completed 11/04/2006 HIV for age 15-65 Completed 03/28/2023 Hepatitis C screening for ag e 18-79 Completed 03/28/2023 Influenza for age 50-64 Completed 04/22/20 24, 04/01/2023, 07/21/2018, Additional history exists Zoster (shingles) series for age 50+ Completed 09/08/2024, 06/03/2024 Procedures Procedure Name Priority Date/Time Associated Diagnosis Comments US ABDOMEN LIMITED LIVER Routine 09/07/2024 9:21 AM NEUROPATHOLOGIST Alcoholic liver disease (HC) MR SPINE CERVICAL WO Routine 08/19/2024 12:43 PM NEUROPATHOLOGIST Neck pain, chronic XR SPINE CERVICAL 3 VIEWS Routine 07/30/2024 11:06 AM NEUROPATHOLOGIST Neck pain, chronic CBC W PLT NO DIFF Routine 07/22/2024 11: 40 AM NEUROPATHOLOGIST Myalgia C-REACTIVE PROTEIN Routine 07/22/2024 11 :39 AM NEUROPATHOLOGIST Myalgia MR SHOULDER LEFT WO Routine 07/22/2024 10:08 AM NEUROPATHOLOGIST Chronic pain of both shoulders Rotator cuff syndrome of both shoulders MR SHOULDER RIGHT WO Routine 07/22/2024 9:25 AM NEUROPATHOLOGIST Chronic pain of both shoulders Rotator cuff syndrome of both shoulders SDNA-FIT EXTERNAL (COLOGUARD) Routine 07/21/2024 10:00 AM NEUROPATHOLOGIST Screening for colon cancer PATH TISSUE EXAM Routine 06/25/2024 11:0 4 AM NEUROPATHOLOGIST High-risk human papillomavirus (HPV) DNA detected in cervical specimen, not type 16 or 18 XR MAMMO BILAT SCREENING Routine 06/11/2024 2:27 PM NEUROPATHOLOGIST Visit for screening mammogram RN TRIAGE THIN PREP PAP AND HPV DNA - AGE 25 AND OVER ([facility]) Routine 06/03/2024 11:53 AM NEUROPATHOLOGIST Human papilloma virus (HPV) infection LIPID PANEL W REFLEX MEASURED LDL Routine 06/03/2024 11:46 AM NEUROPATHOLOGIST Routine general medical examination at a health care facility ANTI HIV 1/2 Routine 03/28/2023 4:01 PM CDT Hepatic cirrhosis, unspecified hepatic cirrhosis type, unspecified whether ascites present (HC) Elevated liver enzymes ANTI HCV Routine 03/28/2023 4:01 PM CDT Hepatic cirrhosis, unspecified hepatic cirrhosis type, unspecified whether ascites present (HC) Elevated liver enzymes from Last 3 Months or Most Recently Relevant to Health Maintenance Results * US ABDOMEN LIMITED LIVER (09/07/2024 9:21 AM NEUROPATHOLOGIST) Anatomical Region Laterality Modality LIVER Ultrasound 09/07/2024 10:3 2 AM NEUROPATHOLOGIST Impressions 09/07/2024 10:32 AM NEUROPATHOLOGIST Cirrhotic liver with varices. No ascites or intrahepatic mass. Cholelithiasis with the gallbladder filled with echogenic stones. Dictated by Lucius Beard MD @ 09/07/2024 10:32:01 AM (Electronically Signed) Narrative 09/07/2024 10:32 AM NEUROPATHOLOGIST For Patients: As a result of the Cures Act, medical imaging exams and procedure reports are released immediately into your electronic medical record. You may view this report before your referring provider. If you have questions, please contact your health care provider. INDICATION: Alcoholic liver disease COMPARISON: 07/18/2023 TECHNIQUE: Real time tate scale imaging and color Doppler analysis was performed of the right upper quadrant. FINDINGS: Liver echotexture is coarsened and increased. No intrahepatic mass. Recanalization of the umbilical vein noted. There is a normal appearance of the hepatic IVC and proximal abdominal aorta. There is no evidence of ascites gallbladder wall echo shadow complex noted. The gallbladder wall measures 2 mm in thickness. The common bile duct is of normal size and measures 5 mm in diameter at the level of the marcus hepatis. The visualized pancreas appears normal. There is no evidence of a stone or hydronephrosis within the right kidney. The right kidney measures 11.3 cm in length. Procedure Note Lucius Beard MD - 09/07/2024 For Patients: As a result of the Cures Act, medical imagingexams and procedure reports are released immediately into your electronicmedical record. You may view this report before your referring provider.If you have questions, please contact your health care provider. INDICATION: Alcoholic liver disease COMPARISON: 07/18/2023 TECHNIQUE: Real time tate scale imaging and color Doppler analysis was performed ofthe right upper quadrant. FINDINGS: Liver echotexture is coarsened and increased. No intrahepatic mass.Recanalization of the umbilical vein noted. There is a normal appearanceof the hepatic IVC and proximal abdominal aorta. There is no evidence ofascites gallbladder wall echo shadow complex noted. The gallbladder wallmeasures 2 mm in thickness. The common bile duct is of normal size andmeasures 5 mm in diameter at the level of the marcus hepatis. Thevisualized pancreas appears normal. There is no evidence of a stone orhydronephrosis within the right kidney. The right kidney measures 11.3 cmin length. IMPRESSION: Cirrhotic liver with varices. No ascites or intrahepatic mass. Cholelithiasis with the gallbladder filled with echogenic stones. Dictated by Lucius Beard MD @ 09/07/2024 10:32:01 AM (Electronically Signed) us Zara Gould MD Final Result * MR SPINE CERVICAL WO (08/19/2024 12:43 PM NEUROPATHOLOGIST) Anatomical Region Laterality Modality Spine, CERVICAL SPINE Magnetic R esonance 08/19/2024 1:53 PM NEUROPATHOLOGIST Impressions 08/19/2024 1:53 PM NEUROPATHOLOGIST 1. Normal alignment. No fractures. 2. Normal cord signal. 3. Cervical spondylosis. Multilevel mild disc degeneration. 4. No spinal canal or neural foraminal narrowing at all levels. Dictated by Manpreet Shaffer MD @ 08/19/2024 1:53:35 PM (Electronically Signed) Narrative 08/19/2024 1:53 PM NEUROPATHOLOGIST For Patients: As a result of the Century Cures Act, medical imaging exams and procedure reports are released immediately into your electronic medical record. You may view this report before your referring provider. If you have questions, please contact your health care provider. INDICATION: Chronic neck pain. COMPARISON: 07/30/2024. TECHNIQUE: Sagittal T1, T2, and STIR sequences. Axial T2/gradient sequences. FINDINGS: Motion artifact. Normal vertebral body facet alignment. No fractures. No vertebral body loss of height. No spondylolisthesis. No ligamentous injury. Normal marrow signal. No suspicious osseous lesions. Normal cord signal. No intradural mass or lesion. C1-2: No spinal canal narrowing. C2-3: No spinal canal neural foraminal narrowing. C3-4: Mild disc degeneration. No narrowing of spinal canal. No neural foraminal narrowing. C4-5: Mild disc degeneration and posterior disc bulge. No spinal canal or neural foraminal narrowing. C5-6: Mild disc degeneration. No spinal canal neural foraminal narrowing. C6-7: Mild disc degeneration. No narrowing of the spinal canal. No neural foraminal narrowing. C7-T1: No spinal canal or neural foraminal narrowing. No spinal canal or neural foraminal narrowing is visualized upper thoracic spine. Procedure Note Manpreet Shaffer MD, PhD - 08/19/2024 For Patients: As a result of the Century Cures Act, medical imagingexams and procedure reports are released immediately into your electronicmedical record. You may view this report before your referring provider.If you have questions, please contact your health care provider. INDICATION: Chronic neck pain. COMPARISON: 07/30/2024. TECHNIQUE: Sagittal T1, T2, and STIR sequences. Axial T2/gradient sequences. FINDINGS: Motion artifact. Normal vertebral body facet alignment. No fractures. No vertebral bodyloss of height. No spondylolisthesis. No ligamentous injury. Normal marrowsignal. No suspicious osseous lesions. Normal cord signal. No intradural mass or lesion. C1-2: No spinal canal narrowing. C2-3: No spinal canal neural foraminal narrowing. C3-4: Mild disc degeneration. No narrowing of spinal canal. No neuralforaminal narrowing. C4-5: Mild disc degeneration and posterior disc bulge. No spinal canal orneural foraminal narrowing. C5-6: Mild disc degeneration. No spinal canal neural foraminalnarrowing. C6-7: Mild disc degeneration. No narrowing of the spinal canal. No neuralforaminal narrowing. C7-T1: No spinal canal or neural foraminal narrowing. No spinal canal or neural foraminal narrowing is visualized upper thoracicspine. IMPRESSION: 1. Normal alignment. No fractures. 2. Normal cord signal. 3. Cervical spondylosis. Multilevel mild disc degeneration. 4. No spinal canal or neural foraminal narrowing at all levels. Dictated by Manpreet Shaffer MD @ 08/19/2024 1:53:35 PM (Electronically Signed) Oziel Valdez MD MR Final Res ult * XR SPINE CERVICAL 3 VIEWS (07/30/2024 11:06 AM NEUROPATHOLOGIST) Anatomical Region Laterality Modality CERVICAL SPINE Computed Radiogr aphy 07/30/2024 4:12 PM NEUROPATHOLOGIST Impressions 07/30/2024 4:12 PM NEUROPATHOLOGIST Mild degenerative disc disease C6-7. Dictated by Lucius Beard MD @ 07/30/2024 4:12:41 PM (Electronically Signed) Narrative 07/30/2024 4:12 PM NEUROPATHOLOGIST For Patients: As a result of the Cures Act, medical imaging exams and procedure reports are released immediately into your electronic medical record. You may view this report before your referring provider. If you have questions, please contact your health care provider. INDICATION: Chronic neck pain TECHNIQUE: Cervical spine 3 view. COMPARISON: None FINDINGS: Bones: Alignment is normal. No fractures or significant bone lesions. Joints: Minimal spurring at C6-7. Facet joints are maintained. Soft tissues: Unremarkable. Procedure Note Lucius Beard MD - 07/30/2024 For Patients: As a result of the Cures Act, medical imagingexams and procedure reports are released immediately into your electronicmedical record. You may view this report before your referring provider.If you have questions, please contact your health care provider. INDICATION: Chronic neck pain TECHNIQUE: Cervical spine 3 view. COMPARISON: None FINDINGS: Bones: Alignment is normal. No fractures or significant bone lesions. Joints: Minimal spurring at C6-7. Facet joints are maintained. Soft tissues: Unremarkable. IMPRESSION: Mild degenerative disc disease C6-7. Dictated by Lucius Beard MD @ 07/30/2024 4:12:41 PM (Electronically Signed) Oziel Valdez MD GENERAL IMAGING Final Res ult * (ABNORMAL) CBC W PLT NO DIFF (07/22/2024 11:40 AM NEUROPATHOLOGIST) WHITE BLOOD CELL COUNT 5.0 3.8 - 10.8 Thousand/u L [facility] RED BLOOD CELL COUNT 3.40(L) 3.80 - 5.10 Million/uL [facility] HEMOGLOBIN 10.0(L) 11.7 - 15.5 g/dL [facility] HEMATOCRIT 29.7(L) 35.0 - 45.0 % [facility] MCV 87.4 80.0 - 100.0 fL [facility] MCH 29.4 27.0 - 33.0 pg [facility] MCHC 33.7 32.0 - 36.0 g/dL [facility] Comment: For adults, a slight decrease in the calculated MCHC value (in the range of 30 to 32 g/dL) is most likely not clinically significant; however, it should be interpreted with caution in correlation with other red cell parameters and the patient's clinical condition. RDW 17.1(H) 11.0 - 15.0 % [facility] PLATELET COUNT 63(L) 140 - 400 Thousand/u L [facility] MPV 11.5 7.5 - 12.5 fL [facility] Blood BLOOD SPECIMEN / Unknown 07/22/2024 11:40 AM NEUROPATHOLOGIST 07/22/2024 11:40 AM NEUROPATHOLOGIST Franky Ayoub MD HEMATOLOGY Final Re sult [address] [facility] [address] [place] [address], [facility] [address] [place] [address] * C-REACTIVE PROTEIN (07/22/2024 11:39 AM NEUROPATHOLOGIST) C-REACTIVE PROTEIN 4.0 <8.0 mg/L [facility] Blood BLOOD SPECIMEN / Unknown 07/22/2024 11:39 AM NEUROPATHOLOGIST 07/22/2024 11:39 AM NEUROPATHOLOGIST Franky Ayoub MD CHEMISTRY Final Re sult [address] [facility] [address] [place] [address], [facility] [address] [place] [address] * MR SHOULDER LEFT WO (07/22/2024 10:08 AM NEUROPATHOLOGIST) Anatomical Region Laterality Modality SHOULDER L Magnetic Resonan ce 07/22/2024 1:56 PM NEUROPATHOLOGIST Impressions 07/22/2024 1:56 PM NEUROPATHOLOGIST 1. Small high-grade partial-thickness tear of the supraspinatus tendon at the insertional footprint. Moderate tendinopathy. 2. Small amount of fluid in the subacromial subdeltoid bursa. 3. Small subacromial enthesophyte. Dictated by Austin Benavidez MD @ 07/22/2024 1:56:50 PM (Electronically Signed) Narrative 07/22/2024 1:56 PM NEUROPATHOLOGIST For Patients: As a result of the Cures Act, medical imaging exams and procedure reports are released immediately into your electronic medical record. You may view this report before your referring provider. If you have questions, please contact your health care provider. EXAM: MRI OF THE LEFT SHOULDER WITHOUT CONTRAST CLINICAL INDICATION: Multiple month history of shoulder pain. COMPARISON PLAIN FILMS: 02/24/2024. COMPARISON CROSS-SECTIONAL IMAGING STUDIES: MRI of the right shoulder from same day. TECHNICAL: Axial, sagittal oblique and coronal oblique T1, PD, PD FS and T2-weighted images. Shoulder surface coil. FINDINGS: ROTATOR CUFF TENDONS AND MUSCLES AND DELTOID: Supraspinatus: 0.5 cm near full-thickness tear of the distal supraspinatus tendon at the insertional footprint. Diffuse increased signal consistent with moderate tendinopathy. No muscle atrophy or edema. Infraspinatus: No tendinosis, tendon tearing, muscle atrophy or muscle edema. Subscapularis: No tendinosis, tendon tearing, muscle atrophy or muscle edema. Teres Minor: No tendinosis, tendon tearing, muscle atrophy or muscle edema. Deltoid: No muscle atrophy or edema. BURSA: Subacromial-subdeltoid: Small amount of fluid in the subacromial subdeltoid bursa. BICEPS TENDON, LONG HEAD: The long head of the biceps tendon is appropriately positioned within the bicipital groove without tendon subluxation or dislocation. The biceps barrett mechanism is intact. The biceps anchor appears grossly intact. There is no significant tendinosis or tendon tearing. CORACOACROMIAL ARCH: Acromial Morphology: Type 2 acromial morphology. No abnormal lateral or anterior downward sloping of the acromion. Small subacromial enthesophyte. No os acromiale. Acromiohumeral Interval: Normal. Coracohumeral Interval: Normal. ACROMIOCLAVICULAR JOINT REGION: AC Joint: No significant arthrosis, inferior hypertrophy, joint space widening, findings of acute injury or AC joint capsulitis. Ligaments: The coracoclavicular ligaments are intact. GLENOHUMERAL JOINT: Joint space: No effusion or synovitis. Humeral Head Articular Cartilage: No focal cartilage defect or underlying subchondral marrow changes. Glenoid Articular Cartilage: No focal cartilage defect or underlying subchondral marrow changes. Labrum: No labral tear or paralabral cyst. Alignment: Maintained. Capsule: No capsular edema or abnormal capsular thickening. OSSEOUS STRUCTURES: No fracture, marrow edema or marrow replacement process. OTHER FINDINGS: There is no abnormality within the suprascapular or spinoglenoid notches nor within the quadrilateral space. No axillary adenopathy or mass. Procedure Note Austin Benavidez MD - 07/22/2024 For Patients: As a result of the Century Cures Act, medical imagingexams and procedure reports are released immediately into your electronicmedical record. You may view this report before your referring provider.If you have questions, please contact your health care provider. EXAM: MRI OF THE LEFT SHOULDER WITHOUT CONTRAST CLINICAL INDICATION: Multiple month history of shoulder pain. COMPARISON PLAIN FILMS: 02/24/2024. COMPARISON CROSS-SECTIONAL IMAGING STUDIES: MRI of the right shoulder from same day. TECHNICAL: Axial, sagittal oblique and coronal oblique T1, PD, PD FS and T2-weightedimages. Shoulder surface coil. FINDINGS: ROTATOR CUFF TENDONS AND MUSCLES AND DELTOID: Supraspinatus: 0.5 cm near full-thickness tear of the distal supraspinatustendon at the insertional footprint. Diffuse increased signal consistentwith moderate tendinopathy. No muscle atrophy or edema. Infraspinatus: No tendinosis, tendon tearing, muscle atrophy or muscleedema. Subscapularis: No tendinosis, tendon tearing, muscle atrophy or muscleedema. Teres Minor: No tendinosis, tendon tearing, muscle atrophy or muscleedema. Deltoid: No muscle atrophy or edema. BURSA: Subacromial-subdeltoid: Small amount of fluid in the subacromialsubdeltoid bursa. BICEPS TENDON, LONG HEAD: The long head of the biceps tendon is appropriately positioned within thebicipital groove without tendon subluxation or dislocation. The bicepspulley mechanism is intact. The biceps anchor appears grossly intact.There is no significant tendinosis or tendon tearing. CORACOACROMIAL ARCH: Acromial Morphology: Type 2 acromial morphology. No abnormal lateral oranterior downward sloping of the acromion. Small subacromial enthesophyte.No os acromiale. Acromiohumeral Interval: Normal. Coracohumeral Interval: Normal. ACROMIOCLAVICULAR JOINT REGION: AC Joint: No significant arthrosis, inferior hypertrophy, joint spacewidening, findings of acute injury or AC joint capsulitis. Ligaments: The coracoclavicular ligaments are intact. GLENOHUMERAL JOINT: Joint space: No effusion or synovitis. Humeral Head Articular Cartilage: No focal cartilage defect or underlyingsubchondral marrow changes. Glenoid Articular Cartilage: No focal cartilage defect or underlyingsubchondral marrow changes. Labrum: No labral tear or paralabral cyst. Alignment: Maintained. Capsule: No capsular edema or abnormal capsular thickening. OSSEOUS STRUCTURES: No fracture, marrow edema or marrow replacement process. OTHER FINDINGS: There is no abnormality within the suprascapular or spinoglenoid notchesnor within the quadrilateral space. No axillary adenopathy or mass. IMPRESSION: 1. Small high-grade partial-thickness tear of the supraspinatus tendon atthe insertional footprint. Moderate tendinopathy. 2. Small amount of fluid in the subacromial subdeltoid bursa. 3. Small subacromial enthesophyte. Dictated by Austin Benavidez MD @ 07/22/2024 1:56:50 PM (Electronically Signed) us Oziel Valdez MD MR Final Res ult * MR SHOULDER RIGHT WO (07/22/2024 9:25 AM NEUROPATHOLOGIST) Anatomical Region Laterality Modality SHOULDER R Magnetic Resonan ce 07/22/2024 1:52 PM NEUROPATHOLOGIST Impressions 07/22/2024 1:52 PM NEUROPATHOLOGIST 1. Diffuse thinning of the supraspinatus tendon with more focal area of thinning at the distal anterior bursal surface margin. Findings consistent with a high-grade partial-thickness tear. 2. Diffuse thinning of the infraspinatus tendon consistent with a low-grade partial-thickness tear. 3. Moderate amount of fluid in the subacromial subdeltoid bursa. 4. Osak-gu-zyxrmhdz glenohumeral chondromalacia. 5. Small glenohumeral joint effusion. 6. Remodeling of the undersurface of the acromion and volume loss in the distal clavicle. Dictated by Austin Benavidez MD @ 07/22/2024 1:52:58 PM (Electronically Signed) Narrative 07/22/2024 1:52 PM NEUROPATHOLOGIST For Patients: As a result of the Century Cures Act, medical imaging exams and procedure reports are released immediately into your electronic medical record. You may view this report before your referring provider. If you have questions, please contact your health care provider. EXAM: MRI OF THE RIGHT SHOULDER WITHOUT CONTRAST CLINICAL INDICATION: Multiple month history of shoulder pain. COMPARISON PLAIN FILMS: 02/24/2024. COMPARISON CROSS-SECTIONAL IMAGING STUDIES: MRI of the left shoulder from same day. TECHNICAL: Axial, sagittal oblique and coronal oblique T1, PD, PD FS and T2-weighted images. Shoulder surface coil. FINDINGS: ROTATOR CUFF TENDONS AND MUSCLES AND DELTOID: Supraspinatus: Diffuse thinning of the supraspinatus tendon consistent with high-grade partial-thickness tearing. There is a more focal area of tendon thinning at the distal anterior margin in the bursal surface consistent with an additional focal high-grade partial-thickness component. No muscle atrophy or edema. Infraspinatus: Diffuse thinning of the infraspinatus tendon consistent with low- grade partial-thickness tearing. No muscle atrophy or edema. Subscapularis: No tendinosis, tendon tearing, muscle atrophy or muscle edema. Teres Minor: No tendinosis, tendon tearing, muscle atrophy or muscle edema. Deltoid: No muscle atrophy or edema. BURSA: Subacromial-subdeltoid: Moderate amount of fluid in the subacromial subdeltoid bursa. BICEPS TENDON, LONG HEAD: The long head of the biceps tendon is appropriately positioned within the bicipital groove without tendon subluxation or dislocation. The biceps barrett mechanism is intact. The biceps anchor appears grossly intact. There is no significant tendinosis or tendon tearing. CORACOACROMIAL ARCH: Acromial Morphology: Type 1 acromial morphology. Remodeling of the undersurface of the acromion. No significant subacromial spur. No os acromiale. Acromiohumeral Interval: Normal. Coracohumeral Interval: Normal. ACROMIOCLAVICULAR JOINT REGION: AC Joint: Volume loss in the distal clavicle. No inferior marginal osteophytes. Ligaments: The coracoclavicular ligaments are intact. GLENOHUMERAL JOINT: Joint space: Small joint effusion. Mild synovitis. No loose body. Humeral Head Articular Cartilage: Mild chondromalacia centrally. Glenoid Articular Cartilage: Mild to moderate chondromalacia centrally. Labrum: No labral tear or paralabral cyst. Alignment: Maintained. Capsule: No capsular edema or abnormal capsular thickening. OSSEOUS STRUCTURES: No fracture, marrow edema or marrow replacement process. OTHER FINDINGS: There is no abnormality within the suprascapular or spinoglenoid notches nor within the quadrilateral space. No axillary adenopathy or mass. Procedure Note Austin Benavidez MD - 07/22/2024 For Patients: As a result of the 21st Century Cures Act, medical imagingexams and procedure reports are released immediately into your electronicmedical record. You may view this report before your referring provider.If you have questions, please contact your health care provider. EXAM: MRI OF THE RIGHT SHOULDER WITHOUT CONTRAST CLINICAL INDICATION: Multiple month history of shoulder pain. COMPARISON PLAIN FILMS: 02/24/2024. COMPARISON CROSS-SECTIONAL IMAGING STUDIES: MRI of the left shoulder from same day. TECHNICAL: Axial, sagittal oblique and coronal oblique T1, PD, PD FS and T2-weightedimages. Shoulder surface coil. FINDINGS: ROTATOR CUFF TENDONS AND MUSCLES AND DELTOID: Supraspinatus: Diffuse thinning of the supraspinatus tendon consistentwith high- grade partial-thickness tearing. There is a more focal area oftendon thinning at the distal anterior margin in the bursal surfaceconsistent with an additional focal high- grade partial-thicknesscomponent. No muscle atrophy or edema. Infraspinatus: Diffuse thinning of the infraspinatus tendon consistentwith low- grade partial-thickness tearing. No muscle atrophy or edema. Subscapularis: No tendinosis, tendon tearing, muscle atrophy or muscleedema. Teres Minor: No tendinosis, tendon tearing, muscle atrophy or muscleedema. Deltoid: No muscle atrophy or edema. BURSA: Subacromial-subdeltoid: Moderate amount of fluid in the subacromialsubdeltoid bursa. BICEPS TENDON, LONG HEAD: The long head of the biceps tendon is appropriately positioned within thebicipital groove without tendon subluxation or dislocation. The bicepspulley mechanism is intact. The biceps anchor appears grossly intact.There is no significant tendinosis or tendon tearing. CORACOACROMIAL ARCH: Acromial Morphology: Type 1 acromial morphology. Remodeling of theundersurface of the acromion. No significant subacromial spur. No osacromiale. Acromiohumeral Interval: Normal. Coracohumeral Interval: Normal. ACROMIOCLAVICULAR JOINT REGION: AC Joint: Volume loss in the distal clavicle. No inferior marginalosteophytes. Ligaments: The coracoclavicular ligaments are intact. GLENOHUMERAL JOINT: Joint space: Small joint effusion. Mild synovitis. No loose body. Humeral Head Articular Cartilage: Mild chondromalacia centrally. Glenoid Articular Cartilage: Mild to moderate chondromalacia centrally. Labrum: No labral tear or paralabral cyst. Alignment: Maintained. Capsule: No capsular edema or abnormal capsular thickening. OSSEOUS STRUCTURES: No fracture, marrow edema or marrow replacement process. OTHER FINDINGS: There is no abnormality within the suprascapular or spinoglenoid notchesnor within the quadrilateral space. No axillary adenopathy or mass. IMPRESSION: 1. Diffuse thinning of the supraspinatus tendon with more focal area ofthinning at the distal anterior bursal surface margin. Findings consistentwith a high-grade partial-thickness tear. 2. Diffuse thinning of the infraspinatus tendon consistent with alow-grade partial-thickness tear. 3. Moderate amount of fluid in the subacromial subdeltoid bursa. 4. Uzcs-ms-bjfzuwom glenohumeral chondromalacia. 5. Small glenohumeral joint effusion. 6. Remodeling of the undersurface of the acromion and volume loss in thedistal clavicle. Dictated by Austin Benavidez MD @ 07/22/2024 1:52:58 PM (Electronically Signed) us Oziel Valdez MD MR Final Res ult * SDNA-FIT EXTERNAL (COLOGUARD) (07/21/2024 10:00 AM NEUROPATHOLOGIST) NONINV COLON CA DNA+OCC BLD SCRN STL-IMP Negative Negative 07/31/2024 5:11 AM NEUROPATHOLOGIST [facility] (CLIA #:[id number]) Comment: NEGATIVE TEST RESULT. A negative Cologuard result indicates a low likelihood that a colorectal cancer (CRC) or advanced adenoma (adenomatous polyps with more advanced pre-malignant features) is present. The chance that a person with a negative Cologuard test has a colorectal cancer is less than 1 in 1500 (negative predictive value >99.9%) or has an advanced adenoma is less than 5.3% (negative predictive value 94.7%). These data are based on a prospective cross-sectional study of 10,000 individuals at average risk for colorectal cancer who were screened with both Cologuard and colonoscopy. (Jocelyn De La Cruz al, N Engl J Med 2014;370(14):3212-1953) The normal value (reference range) for this assay is negative. COLOGUARD RE-SCREENING RECOMMENDATION: Periodic colorectal cancer screening is an important part of preventive healthcare for asymptomatic individuals at average risk for colorectal cancer. Following a negative Cologuard result, the Canadian Cancer Society and U.S. Multi-Society Task Force screening guidelines recommend a Cologuard re-screening interval of 3 years. References: Canadian Cancer Society Guideline for Colorectal Cancer Screening: https://www.cancer.org/cancer/qzflt-jxxtuj-parbgl/zmaypkbvi-abswylrya-shjdinn/ac s-rec ommendations.html.; Jean Paul DK, Christo CR, Liza CleaningK, Colorectal Cancer Screening: Recommendations for Physicians and Patients from the U.S. Multi-Society Task Force on Colorectal Cancer Screening , Am J Gastroenterology 2017; 112:8509-2825. TEST DESCRIPTION: Composite algorithmic analysis of stool DNA-biomarkers with hemoglobin immunoassay. Quantitative values of individual biomarkers are not reportable and are not associated with individual biomarker result reference ranges. Cologuard is intended for colorectal cancer screening of adults of either sex, 45 years or older, who are at average-risk for colorectal cancer (CRC). Cologuard has been approved for use by the U.S. FDA. The performance of Cologuard was established in a cross sectional study of average-risk adults aged 50-84. Cologuard performance in patients ages 45 to 49 years was estimated by sub-group analysis of near-age groups. Colonoscopies performed for a positive result may find as the most clinically significant lesion: colorectal cancer [4.0%], advanced adenoma (including sessile serrated polyps greater than or equal to 1cm diameter) [20%] or non- advanced adenoma [31%]; or no colorectal neoplasia [45%]. These estimates are derived from a prospective cross-sectional screening study of 10,000 individuals at average risk for colorectal cancer who were screened with both Cologuard and colonoscopy. (Jocelyn De La Cruz al, N Engl J Med 2014;370(14):1315-0268.) Cologuard may produce a false negative or false positive result (no colorectal cancer or precancerous polyp present at colonoscopy follow up). A negative Cologuard test result does not guarantee the absence of CRC or advanced adenoma (pre-cancer). The current Cologuard screening interval is every 3 years. (Canadian Cancer Society and U.S. Multi-Society Task Force). Cologuard performance data in a 10,000 patient pivotal study using colonoscopy as the reference method can be accessed at the following location: www.Protochips/results. Additional description of the Cologuard test process, warnings and precautions can be found at www.Off-Grid Solutionsrd.com. Stool specimen (specimen) (Rectum) 07/21/2024 10:00 AM NEUROPATHOLOGIST 07/26/2024 9:51 AM NEUROPATHOLOGIST us Franky Ayoub MD URINE Final Re sult [facility] (CLIA #:[id number]) [address] [place] [address], [place] [phone] * PATH TISSUE EXAM (06/25/2024 11:04 AM NEUROPATHOLOGIST) Case Report Pathology Report Case: [id number] Authorizing Provider: Love Du DO Collected: 06/25/2024 1111 Ordering Location: [facility] Received: 06/25/2024 1205 Clinic Pathologist: Kaycee Pineda MD Specimens: A) - Cervix B) - Endocervix 06/30/2024 12:02 PM NEUROPATHOLOGIST [facility]- ENTRAL LABORATORY Final Diagnosis A) CERVIX, BIOPSY: 1. Benign cervical mucosa with atrophic changes a. Sampling: Ectocervix b. Transformation zone: Not visualized 2. Negative for glandular neoplasia, squamous intraepithelial lesion, and malignancy B) ENDOCERVIX, CURETTAGE: 1. Fragments of benign endocervical and ectocervical tissues 2. Negative for glandular neoplasia, squamous intraepithelial lesion, and malignancy 06/30/2024 12:02 PM NEUROPATHOLOGIST [facility]- ENTRAL LABORATORY Clinical Information Persistent positive high-risk HPV non-16/18, NIL Paps (last Pap at [facility]) 06/30/2024 12:02 PM NEUROPATHOLOGIST [facility]- ENTRAL LABORATORY Gross Description A) Received in formalin, labeled with the patient's name and A, is a single vizcaino tissue fragment measuring 0.3 cm. The specimen is submitted in toto in one cassette. B) Received in formalin, labeled with the patient's name and ECC, is a 1.9 x 1.2 x 0.2 cm aggregate of pink-vizcaino mucosa admixed with clotted blood and mucous. The specimen is entirely submitted in 1 cassettes. Frederick Mariano 06/25/2024 7:31 PM 06/30/2024 12:02 PM NEUROPATHOLOGIST [facility] Microscopic Description The final diagnosis is based on microscopic examination of appropriate sections of all specimens. An immunostain for p16 was performed using block B1 with result as follows: p16: Focal nonspecific staining in the cells of interest The ancillary stain results support the diagnosis. 06/30/2024 12:02 PM NEUROPATHOLOGIST [facility] Additional Information Interpreted at [facility] - [address] [place] [address] [facility] [address], [place] [address] Immunohistochemist ry controls were reviewed and approved by the pathologist during this examination. 06/30/2024 12:02 PM NEUROPATHOLOGIST [facility] Other SWAB OF ENDOCERVIX / Unknown Non-Blood / Unknown 06/25/2024 11:11 AM NEUROPATHOLOGIST 06/25/2024 12:05 PM NEUROPATHOLOGIST Specimen (specimen) SWAB OF ENDOCERVIX / Unknown 06/25/2024 11:04 AM NEUROPATHOLOGIST 06/25/2024 12:05 PM NEUROPATHOLOGIST Love Du DO PATHOLOGY/CYTOLOGY Final R esult [facility] [address] [place] [address], * XR MAMMO BILAT SCREENING (06/11/2024 2:27 PM NEUROPATHOLOGIST) Anatomical Region Laterality Modality BREASTS, Breast Left, Breast Right Bilateral Mammography Impressions 06/11/2024 4:04 PM NEUROPATHOLOGIST There is no radiographic evidence for malignancy. Recommend annual mammograms. MAMMOGRAM ASSESSMENT: ACR 1 Negative PATIENTS: You will also receive a letter with your examination results in an easy to read format. If you have questions about your results, please contact your referring provider. Narrative 06/11/2024 4:04 PM NEUROPATHOLOGIST For Patients: As a result of the 21st Century Cures Act, medical imaging exams and procedure reports are released immediately into your electronic medical record. You may view this report before your referring provider. If you have questions, please contact your health care provider. XR MAMMO BILAT SCREENING [[id number]] CLINICAL HISTORY: This is an asymptomatic 59 y.o. patient. INDICATION FOR EXAM: Mammogram Screening. TECHNIQUE: CC & MLO views were obtained. This study was evaluated with the assistance of Computer-Aided Detection. COMPARISON FILM: Yes 05/01/23 [facility] FINDINGS: The breasts are extremely dense, which lowers the sensitivity of mammography. There are no dominant masses, suspicious micro calcifications or areas of architectural distortion. Franky Ayoub MD MAMMO Final Re sult * (ABNORMAL) RN TRIAGE THIN PREP PAP AND HPV DNA - AGE 25 AND OVER (Rising) (06/03/2024 11:53 AM NEUROPATHOLOGIST) CLINICAL INFORMATION [facility] Comment: High risk HPV Hx/Rx POS HPV LMP [facility] Comment: PREV. PAP [facility] Comment:04/01/23 PREV. BX [facility] Comment:NIL W BV, HPV SOURCE RN TRIAGE [facility] Comment:Cervix STATEMENT OF ADEQUACY [facility] Comment: Satisfactory for evaluation. Endocervical/transformation zone component present. Age and/or menstrual status not provided Partially obscuring inflammation INTERPRETATION/RESUL T [facility] Comment: Cytology Results: Negative for intraepithelial lesion or malignancy. COMMENT [facility] Comment: This Pap test has been evaluated with computer assisted technology. TEXTURE ARTIST Joni [facility] Comment: MXM, CT(ASCP) CT Screening location: [address] [address] REVIEW TEXTURE ARTIST [facility] Comment: MSJ, CT(ASCP) CT Screening location: [address] [address] THINPREP TIS PAP ALWAYS MESSAGE [facility] Comment: EXPLANATORY NOTE: The Pap is a screening test for cervical cancer. It is not a diagnostic test and is subject to false negative and false positive results. It is most reliable when a satisfactory sample, regularly obtained, is submitted with relevant clinical findings and history, and when the Pap result is evaluated along with historic and current clinical information. HPV HIGH RISK Detected (A) NOT DETECTED [facility] Comment: Detected One or more High Risk HPV types (16,18,31,33, 35,39,45,51,52,56,58,59,66,68) was detected. Methodology: Real Time PCR Other (Other) 06/03/2024 11: 53 AM NEUROPATHOLOGIST 06/04/2024 7:10 AM NEUROPATHOLOGIST Franky Ayoub MD PATHOLOGY/CYTOLOGY Final Result [address] [facility] [address] [place] [address], [facility] [address] [place] [address] * LIPID PANEL W REFLEX MEASURED LDL (06/03/2024 11:46 AM NEUROPATHOLOGIST) CHOLESTEROL, TOTAL 178 <200 mg/dL [facility] HDL CHOLESTEROL 79 > OR = 50 mg/dL [facility] TRIGLYCERIDES 49 <150 mg/dL [facility] LDL-CHOLESTEROL 85 mg/dL (calc) [facility] Comment: Reference range: <100 Desirable range <100 mg/dL for primary prevention; <70 mg/dL for patients with CHD or diabetic patients with > or = 2 CHD risk factors. LDL-C is now calculated using the Harrison-Bartlett calculation, which is a validated novel method providing better accuracy than the Friedewald equation in the estimation of LDL-C. Harrison MONAE et al. MIRYAM. 2013;310(19): 5440-2177 (http://education.TopTechPhoto.introNetworks/faq/CGE521) CHOL/HDLC RATIO 2.3 <5.0 (calc) [facility] NON HDL CHOLESTEROL 99 <130 mg/dL (calc) [facility] Comment: For patients with diabetes plus 1 major ASCVD risk factor, treating to a non-HDL-C goal of <100 mg/dL (LDL-C of <70 mg/dL) is considered a therapeutic option. Blood BLOOD SPECIMEN / Unknown 06/03/2024 11:46 AM NEUROPATHOLOGIST 06/03/2024 11:47 AM NEUROPATHOLOGIST Franky Ayoub MD CHEMISTRY Final Re sult [facility] [address] [place] [address], [place] [phone] [facility] [address] [place] [address] * ANTI HCV (03/28/2023 4:01 PM CDT) HEPATITIS C ANTIBODY Non-Reacti ve Non-React martha 04/01/2023 3:55 PM CDT [facility] Comment:Please note, per www .CDC.gov: If a patient is known to be at high risk of HCV infection, or is symptomatic, and the physician's suspicion of HCV infection is high, HCV RNA testing is often employed and is of diagnostic value, even after an initial negative anti-HCV test result. Blood BLOOD SPECIMEN / Unknown Venipuncture / Unknown 03/28/2023 4:01 PM CDT 03/28/2023 4:01 PM CDT Harrison Glez MD SEND OUTS Final Res ult [facility] SENDOUT INTERNAL ZIP [id number] [place] [id number] * ANTI HIV 1/2 (03/28/2023 4:01 PM CDT) Pathologist [facility] HIV-1/HIV-2 SCREEN Non-Reacti ve Non-Reacti ve 03/31/2023 3:42 PM CDT [facility] Comment:HIV-1 p24 and HIV-1/ HIV-2 Ab Not Detected. Blood BLOOD SPECIMEN / Unknown Venipuncture / Unknown 03/28/2023 4:01 PM CDT 03/28/2023 4:01 PM CDT Harrison Glez MD SEND OUTS Final Res ult [facility] [address] [place] [address], [place] from Last 3 Months or Most Recently Relevant to Health Maintenance Insurance [facility] Care Teams Grey Percher Relationship Specialty Start Date End Date Votel, Franky Guzman MD [address] [place] [address] PCP - General Family Practice 06/20/23
--- OUTSIDE RECORDS SUMMARY | 2024-09-17 18:59 | XMS_ITS | Clinical Summary ---
Author Organization [facility] Address [address] [place] [address] Care Team Providers Care System Dispatcher Name Role Phone None, Primary Care Provider [...] when you are drinking? 3 or 4 3 Q3: How often do you have si [...] 02/12/2023 5:58 PM CDT Plan of Treatment Health Maintenance Due Date Last Done Comments Colonoscopy 1965 Hepatitis C Screening 1965 Lipid Screening 1965 Pap Smear 1965 Anxiety Screening (MARGARETH-2) 1966 Depression Assessment (PHQ-2) 1966 Pneumococcal Vaccine (1 of 2 - PCV) 1971 Pneumococcal 50+ Years (1 of 2 - PCV) 1984 Mammogram Screening 04/26/2013 04/26/2011 Zoster Vaccine (1 of 2) 2015 Adult Tetanus Booster 11/04/2016 11/04/2006 Yearly Review of HCD 02/12/2024 02/12/2023 COVID-19 Vaccine ( season) 2024 Influenza Vaccine (#1) 2024 9, 07/21/2018, 05/27/2017 RSV Vaccines (1 - 1-dose 75+ series) 2040 Insurance [facility] PMAP/MNCARE Advance Directives For more information, please contact: [phone] * Full Code (Latest Code Status on File) Date Activated Date Inactivated Comments 02/12/2023 5:43 PM 02/14/2023 7:50 PM Question Answer Comments How was code status determined? [facility] Care Teams System Dispatcher Relationship Specialty Start Date End Date None, PCP - General 02/12/23 Clinic, No Primary PCP - Primary Care Clinic 02/12/23
[2024-09-17 19:04] VITALS: BP 166/76; PULSE 80; RESP 16; TEMP 36.9; O2SAT 96
--- NOTE | 2024-09-17 19:08 | ED.HEATRA ---
HPI - Head Injury General Time Seen by Provider: 19:08 Date Seen: 09/17/24 Chief complaint: Head Injury/Pain Stated complaint: Fall Time Seen by Provider: 09/17/24 19:07 Source: patient, EMS and RN notes reviewed Mode of arrival: EMS Limitations: no limitations History of Present Illness HPI Narrative: This 59-year-old female was brought in by EMS after falling and having facial injury. Marta has a history of alcoholism, states she is no longer drinking but has unsteady gait and dizziness. She was walking outside and the sidewalk was not even. She tripped and fell down on her face, had nasal bleeding, her glasses went in to her face above her eyes on her forehead causing lacerations. She is not on any blood thinners, she did not lose consciousness. Her left hip hurt when getting up but she admits this does hurt anyways. She has got chronic hip pain, states she has had a CT and an MRI they can find nothing wrong. It was a bit more painful from baseline when getting up. The fall was due to the uneven sidewalk at her baseline gait issues/dizziness. She notes no visual changes. Her nose initially bled a lot, had clots passing down to the back of the throat and spit those out. She denies any pain in her mouth or teeth, her jaw does not hurt. We reviewed it is likely that the nasal bleeding was passing down the back of her throat. EMS bandage her forehead. She states that she is no longer drinking alcohol but does have a history of this. In review of her charts, had abnormal coags and low platelet count back in 2022. She denies any difficulty breathing, no chest or chest wall pain. No abdominal pain. She does not hurt in her arms. She states her left hip hurt when she 1st got up but this is the hip that bothers her. She has no other pain in the pelvis, no right hip pain, no lower extremity pain. Related Data Previous Rx's ?Medication ?Instructions ?Recorded cephalexin 500 mg tablet 500 mg PO TID #20 tabs 09/17/24 Allergies Allergy/AdvReac Type Severity Reaction Status Date / Time No Known Drug Allergies Allergy Verified 10/24/22 21:09 Review of Systems Status of ROS: Reports: 6 or more systems reviewed and unremarkable except as noted in History and below [facility] Medical History Elevated LFTs ?R79.89 - Other specified abnormal findings of blood chemistry (ICD-10) Chronic hypokalemia ?E87.6 - Hypokalemia (ICD-10) Alcohol abuse ?F10.10 - Alcohol abuse, uncomplicated (ICD-10) Anxiety ?F41.9 - Anxiety disorder, unspecified (ICD-10) Depression ?F32.A - Depression, unspecified (ICD-10) Social History Narrative: , heavy daily vodka use Smoking Status: Former smoker Do you use any of these nicotine containing products: None Second hand tobacco smoke exposure: No How often do you have a drink containing alcohol: 4 or more times a week How many standard drinks containing alcohol do you have on a typical day: 10 or more How often do you have six or more drinks on one occasion: Daily or almost daily AUDIT-C Alcohol total score: 12 Non-prescribed substance use: former substance user service: No Exam Const: Vital Signs, click to edit/add: Vital Signs - 24 hr 09/17/24 19:04 09/17/24 21:26 Temperature 98.5 F 98.5 F Pulse Rate [Pulse Oximeter] 80 79 Respiratory Rate 16 16 Blood Pressure [Ri ght Upper Arm] 166/76 H 154/79 H Pulse Oximetry 96 96 Oxygen Delivery Me thod Room Air Room Air Marta had bandaging on her forehead, rolled up gauze in her right naris that was falling out. She had very visible nasal bridge swelling. She otherwise was alert, interactive, no apparent distress. GCS 15/15. Pupils equal round reactive, sclera clear, truck muscles intact. TMs canals without any traumatic change, appear normal. Gauze was removed from the right naris, had a clot on it. She has no active bleeding at this time, do not appreciate any septal hematoma. For gauze was removed around her forehead, has to vertically situated superficial lacerations with ongoing oozing, both about 2 cm in length. They are about 1 mm or so in with, skin edges do easily approximate. No underlying hematoma here. Symmetrical facial function, nontender over jaw, has some dried blood in her oropharynx but no active bleeding, no visible traumatic change, she does not hurt in her mouth. There is posterior pharyngeal evidence of bleeding, no ongoing bleeding seen. No midline tenderness of her neck, neck is supple, no adenopathy, no masses noted. Lungs are clear, good air entry, no wheezing or crackles, no tachypnea. CV regular rate and rhythm, no murmur, normal S1-S2. Abdomen soft, nontender, nondistended, no organomegaly. Moving all 4 extremities, no focal noted tenderness. Generalize complain of pain in her left hip with range of motion. Documenting provider has reviewed patient's vital signs: yes Course Course ED Course: Patient needs a head CT and maxillofacial CT imaging. Suspect that there is a nasal fracture. Do not see septal hematoma at this time but will continue to monitor. Nursing staff did look up her tetanus and there is no documentation of this, will see if she will allow us to give this to her. The wounds on her forehead continue to have active seeping, suspect some probable underlying coagulopathy or platelet dysfunction from her history of alcoholism. Will recheck labs. These wounds on her head are likely going to need to be sutured. Will also x-ray her left hip to rule out acute fracture but likely just exacerbation of her chronic pain. Reevaluation(s) Time of Reevaluation #1: 20:19 Reevaluation #1: Patient had ongoing bleeding from a small wound on the center of the bridge of her nose, probable open fracture as I do think there is nasal bridge fracture my preliminary review of her CT imaging. Lidocaine with epinephrine was infused locally, single simple interrupted stitch using 5 0 Ethilon gave good closure an cessation of the active oozing of blood. Her right vertical forehead wound just on the medial portion of the right eyebrow and extending vertically actually was about 1.75 cm in length, when cleaning this the wound edges widely spread apart and went through and through the skin. Suturing is absolutely necessary. Same was found for the other wound. Lidocaine with epinephrine was injected into the skin at both of these wounds. She had active bleeding while repairing these wounds, left the left wound covered with gauze on it to control bleeding while I repaired the right facial forehead wound. Five 0 Ethilon was used, simple running stitch was used with good wound approximation and cessation of bleeding. The left forehead wound was just along the medial left eyebrow, extending vertically and actually was only about 1 cm, gaping once the wound was cleaned and further inspected. Five 0 Ethilon was used in running fashion with good wound approximation and hemostasis observed. Patient tolerated this well. Did review with her that we find no evidence of current tetanus status. She is in agreement to take tetanus. Have ordered a Tdap. Will have nursing staff get her cleaned up, apply ice over her nasal bridge. Time of Reevaluation #2: 21:27 Reevaluation #2: Have provided her copies of her x-ray reports. She does have bilateral nasal bridge fractures. Head CT and left hip are without acute pathology. Labs reviewed. She has ongoing thrombocytopenia and some mild elevation of her coags. Her bleeding remains controlled, no further bleeding from the nose, nasal wound or the repaired lacerations on her forehead. Will give her dose of Keflex here tonight, she believe she can tolerate this. She has no pain management at home, will give her dose of 500 mg acetaminophen here. She should avoid NSAIDs given her liver disease and her thrombocytopenia. Do believe she should be fine following liver restrictions for Tylenol. Vital Signs Vital signs: Initial Vital Signs Temperature 98.5 F 09/17/24 19:04 Temperature Source Temporal Artery Scan 09/17/24 19:04 Pulse Rate 80 09/17/24 19:04 Respiratory Rate 16 09/17/24 19:04 Blood Pressure 166/76 H 09/17/24 19:04 Blood Pressure Mean 106 H 09/17/24 19:04 Blood Pressure Position Sitting 09/17/24 19:04 Pulse Oximetry 96 09/17/24 19:04 Oxygen Delivery Method Room Air 09/17/24 19:04 Vital Signs Temperature 98.5 F 09/17/24 19:04 Pulse Rate 80 09/17/24 19:04 Respiratory Rate 16 09/17/24 19:04 Blood Pressure 166/76 H 09/17/24 19:04 Pulse Oximetry 96 09/17/24 19:04 Oxygen Delivery Method Room Air 09/17/24 19:04 Temperature 98.5 F 09/17/24 21:26 Pulse Rate 79 09/17/24 21:26 Respiratory Rate 16 09/17/24 21:26 Blood Pressure 154/79 H 09/17/24 21:26 Pulse Oximetry 96 09/17/24 21:26 Oxygen Delivery Method Room Air 09/17/24 21:26 Medications Administered Medications: Discontinued Medications Generic Name Dose Route Start Last Admin Trade Name Emeli PRN Reason Stop Dose Admin Diphtheria/Tetanus/Acell Pertussis 0.5 ml 09/17/24 20:17 09/17/24 20:50 Tetanus/Diphth/Pertussis 0.5 Ml Syringe IM 09/17/24 20:18 0.5 ml .ONCE ONE Administration Lidocaine/Epinephrine 8 ml 09/17/24 19:53 09/17/24 20:06 Lidocaine 1%-Epi 1:100,000 INFILTRATI 09/17/24 19:54 8 ml ONCE ONE Administration MDM - Head Injury Lab Data Attestation: I reviewed the patient's lab results. Labs: Lab Results 09/17/24 Range/Units 19:56 WBC 4.32 L (4.50-11.00) K/uL RBC 3.61 L (4.00-5.20) m/uL Hgb 11.0 L (12.0-16.0) gm/dL Hct 33.8 (33.0-51.0) % MCV 94 (80-100) fL MCH 31 (26-34) pg MCHC 33 (32-36) gm/dL RDW Coeff of Maria Ines 16.2 H (11.5-15.5) % Plt Count 64 L (140-440) K/uL Neut % (Auto) 57.6 (42.0-72.0) % Lymph % (Auto) 24.1 (20-44) % [place] % (Auto) 9.0 (0.0-11.0) % Eos % (Auto) 8.1 H (0.0-7.0) % Baso % (Auto) 0.7 (0.0-3.0) % Neut # (Auto) 2.50 (1.7-7.0) K/uL Lymph # (Auto) 1.00 (0.90-2.90) K/uL [place] # (Auto) 0.40 (0.00-0.90) K/UL Eos # (Auto) 0.30 (0.00-0.50) K/uL Baso # (Auto) 0.00 (0.00-0.30) K/uL Abs Immat Gran (auto) 0.00 (0.00-0.30) K/uL Imm/Tot Granulo (auto) 0.5 % INR 1.51 H (0.91-1.10) APTT 39 H (23-33) Seconds Sodium 140 (135-149) mmol/L Potassium 3.6 (3.6-5.1) mmol/L Chloride 107 (96-114) mmol/L Carbon Dioxide 26 (20-32) mmol/L Anion Gap 7 (7-15) mEq/L BUN 21 (7-30) mg/dL Creatinine 0.6 (0.5-1.5) mg/dL Estimated GFR 103 ml/min Glucose 80 (60-115) mg/dL Calcium 9.2 (8.4-10.6) mg/dL Total Bilirubin 2.7 H (0.1-1.5) mg/dL AST 54 H (12-35) U/L ALT 42 H (4-35) U/L Alkaline Phosphatase 76 (40-150) U/L Total Protein 7.3 (6.0-8.3) g/dL Albumin 3.7 (3.3-5.0) g/dL Ethyl Alcohol < 0.01 L (0.01-0.03) % Imaging Data CT scan - head: Attestation: I have reviewed the pertinent imaging results. My impression: Do believe I see nasal fractures, wait radiology over-read. Radiologist's impression: Patient: MORGAN DESOUZA Facility:?[facility] Patient ID:?[id number] Site Patient ID:?[id number]. Site :?1965 Study:?CT-Head WO-09/17/2024 7:42:04 PM Ordering Physician:?Nano Lagunas Final Report: INDICATION: Fall, injury. TECHNIQUE: CT head and maxillofacial without contrast. COMPARISON: Head CT 02/12/2023. FINDINGS: Brain parenchyma, CSF spaces, and extra-axial spaces: Areas of mild hypoattenuation within the bilateral periventricular white matter, consistent with chronic small vessel ischemic disease. The tate-white differentiation is normal. No sign of mass, hemorrhage, or midline shift. No hydrocephalus. No extra-axial fluid collection. Atherosclerotic calcification of the bilateral carotid siphons. Bones: Acute, slightly displaced, comminuted bilateral nasal bone fractures. No skull fracture. Orbits and globes: Unremarkable. Globes are intact. No sign of intraorbital hemorrhage or emphysema. Sinuses and mastoid air cells: No acute or significant findings. Soft tissues: Unremarkable. IMPRESSION: 1. No evidence of an acute intracranial abnormality. 2. Acute, slightly displaced comminuted bilateral nasal bone fractures. Please note that all CT scans at this facility use dose modulation, iterative reconstruction, and/or weight-based dosing when appropriate to reduce radiation dose to as low as reasonably achievable. Dictated by Jesse Figueroa MD @ 09/17/2024 8:32:26 PM (Electronic Signature) XR left hip: Attestation: I have reviewed the pertinent imaging results. Radiologist's impression: Patient: MORGAN DESOUZA Facility:?[facility] Patient ID:?[id number] Site Patient ID:?[id number]. Site :?1965 Study:?XRay-Hip Left 2V-09/17/2024 7:49:52 PM Ordering Physician:?Nano Lagunas Final Report: Indication: Acute on chronic pain, fall. Technique: 3 views of the left hip. Comparison: None. Findings: Bones: Alignment is normal. No acute fracture or suspicious bone lesion. Joint spaces: Mild degenerative changes of the bilateral hips, sacroiliac joints, and lower lumbar spine. Soft tissues: Unremarkable. Impression: No evidence of an acute bony abnormality. Dictated by Jesse Figueroa MD @ 09/17/2024 8:40:50 PM (Electronic Signature) Discharge Plan Discharge Clinical Impression: Fall, Nasal bone fx-open, Laceration of face, multiple sites Patient Disposition: Home, Self-Care Condition: Stable Instructions: Nasal Fracture (ED), Laceration (ED) Additional Instructions: Try to sleep with your head elevated as much as possible to help decrease swelling. Can use ice to the bridge of the nose to help decrease the swelling. You may use Tylenol 500 mg up to 4 times a day as needed for pain management. Take the antibiotic as prescribed to help prevent infection in the nose, next dose due tomorrow morning. You will need to schedule a clinic followup in about 7-10 days to assess the facial wounds for suture removal. You small amount of bacitracin to these wounds 3 to 4 times a day until healed. If there is concern for infection, please seek re-evaluation. You will need to follow up with ENT for the nasal fractures, call the [facility] at [phone] as they schedule for ENT Dr. Cruz or call [facility] in [place], do believe they may still have ENT coming there as well. Dr. Cruz does come to [place]. Activity Level: Activity as Tolerated Prescriptions: New cephalexin 500 mg tablet 500 mg PO TID Qty: 20 0RF Follow Up/Referrals: Provider,Not a Local [Non-Staff] - Stand Alone Forms: [employer] Info Instructions
--- OUTSIDE RECORDS SUMMARY | 2024-09-17 19:53 | XMS_ITS | Referral Summary ---
Author Organization [facility] Address [address] [place] [address] Care Team Providers Care Roof Plumber Name Role Phone None, Primary Care Provider [...] Plan of Treatment Not on file Insurance [facility] Advance Directives For more information, please contact: [phone] * Full Code (Latest Code Status on File) Date Activated Date Inactivated Comments 02/12/2023 5:43 PM 02/14/2023 7:50 PM Question Answer Comments How was code status determined? [facility] Care Teams Roof Plumber Relationship Specialty Start Date End Date None, PCP - General 02/12/23 Clinic, No Primary PCP - Primary Care Clinic 02/12/23
--- OUTSIDE RECORDS SUMMARY | 2024-09-17 19:54 | XMS_ITS | Clinical Summary ---
Author Organization [facility] Address [address] [place] [address] Care Team Providers Care Casual Shoe Inspector Name Role Phone None, Primary Care Provider [...] (1 - 1-dose 75+ series) 2040 Insurance [facility] PMAP/MNCARE Advance Directives For more information, please contact: [phone] * Full Code (Latest Code Status on File) Date Activated Date Inactivated Comments 02/12/2023 5:43 PM 02/14/2023 7:50 PM Question Answer Comments How was code status determined? [facility] Care Teams Casual Shoe Inspector Relationship Specialty Start Date End Date None, PCP - General 02/12/23 Clinic, No Primary PCP - Primary Care Clinic 02/12/23
--- OUTSIDE RECORDS SUMMARY | 2024-09-17 19:54 | XMS_ITS | Clinical Summary ---
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
[2024-09-17 20:05] LABS: Basophils Percent Auto 0.7 % (0.0-3.0); Eosinophils Percent Auto 8.1 % (0.0-7.0); Hematocrit 33.8 % (33.0-51.0); Immature Granulocytes Pct Auto 0.5 %; Lymphocytes Percent Auto 24.1 % (20-44); Mean Corpuscular HGB Conc 33 gm/dL (32-36); Mean Corpuscular Hemoglobin 31 pg (26-34); Mean Corpuscular Volume 94 fL (80-100); Neutrophils Percent Auto 57.6 % (42.0-72.0); Platelet Count* 64 K/uL (140-440); RDW Coefficient of Variation % 16.2 % (11.5-15.5); Red Blood Count 3.61 m/uL (4.00-5.20); White Blood Count* 4.32 K/uL (4.50-11.00)
[2024-09-17] MEDS: LIDOCAINE 1%-EPI 1:100,000 8 ML INFILTRATI (20:06)
[2024-09-17 20:27] LABS: Albumin* 3.7 g/dL (3.3-5.0)
[2024-09-17 20:28] LABS: Chloride* 107 mmol/L (96-114); Potassium* 3.6 mmol/L (3.6-5.1); Sodium* 140 mmol/L (135-149)
[2024-09-17 20:30] LABS: Alkaline Phosphatase* 76 U/L (40-150); Anion Gap 7 mEq/L (7-15); Aspartate Amino Transferase* 54 U/L (12-35); Bilirubin Total* 2.7 mg/dL (0.1-1.5); Blood Urea Nitrogen* 21 mg/dL (7-30); Carbon Dioxide* 26 mmol/L (20-32); Creatinine* 0.6 mg/dL (0.5-1.5); Estimated Glomerular Filt Rate 103 ml/min
[2024-09-17 20:31] LABS: Alanine Aminotransferase* 42 U/L (4-35); Calcium* 9.2 mg/dL (8.4-10.6); Glucose* 80 mg/dL (60-115); Total Protein* 7.3 g/dL (6.0-8.3)
[2024-09-17 20:32] LABS: Ethanol* < 0.01 % (0.01-0.03)
[2024-09-17 20:41] LABS: INR 1.51 (0.91-1.10); Prothrombin Time 19.2 Seconds
[2024-09-17 20:42] LABS: Partial Thromboplastin Time* 39 Seconds (23-33)
[2024-09-17] MEDS: TETANUS/DIPHTH/PERTUSSIS 0.5 ML SYRINGE IM (20:50)
[2024-09-17 21:14] LABS: Slide Review Reflex No
[2024-09-17 21:26] VITALS: BP 154/79; PULSE 79; RESP 16; TEMP 36.9; O2SAT 96
[2024-09-17] MEDS: cephALEXin 500 MG CAPSULE PO (21:31)
[2024-09-17 21:32] VITALS: TEMP 36.9
[2024-09-17] MEDS: ACETAMINOPHEN 500 MG TABLET PO (21:32)
[2024-09-17 21:34] VITALS: BP 154/79; PULSE 79; RESP 16; TEMP 36.9
== END 2024-09-17 21:38 | disposition home or self-care (01) ==
PROVIDERS: Emergency Provider Family Medicine; PCP Family Medicine
DX: S01.111A Laceration without foreign body of right eyelid and periocular area, initial encounter (principal); S02.2XXB Fracture of nasal bones, initial encounter for open fracture; W01.198A Fall on same level from slipping, tripping and stumbling with subsequent striking against other object, initial encounter; Z23 Encounter for immunization
CPT/HCPCS: 12011; 36415; 70450; 70486; 73502; 80053; 82077; 85025; 85610; 85730; 90471; 90715; 99284; A9270